=== PATIENT | female | born 1970 | race Hispanic/Latino ===

== ENCOUNTER 2016-09-26 18:38 | Emergency (ER) | payer MEDICAID ==
[2016-09-26 19:09] VITALS: BP 156/91
[2016-09-26 19:22] LABS: Basophils % (Auto) 1.1 % (0.0-1.8); Eosinophils % (Auto) 1.2 % (0.0-4.3); Hematocrit 38.8 % (30.3-42.9); Hemoglobin 13.4 gm/dl (10.1-14.3); Mean Corpuscular HGB Conc 35 % (30-34); Mean Corpuscular Hemoglobin 29 pg (28-32); Mean Corpuscular Volume 83 fl (79-97); Platelet Count 197 K/mm3 (140-440); Red Blood Count 4.67 M/mm3 (3.65-5.03); White Blood Count 9.7 K/mm3 (4.5-11.0)
[2016-09-26 20:09] LABS: Albumin 3.6 g/dL (3.9-5); Albumin/Globulin Ratio 0.8 %; Blood Urea Nitrogen 13 mg/dL (7-17); Calcium 8.9 mg/dL (8.4-10.2); Carbon Dioxide 21 mmol/L (22-30); Chloride 97.2 mmol/L (98-107); Glucose 163 mg/dL (65-100); Lipase 24 units/L (13-60); Sodium 134 mmol/L (137-145)
[2016-09-26 21:47] LABS: Anion Gap 21 mmol/L; Potassium 4.9 mmol/L (3.6-5.0)
[2016-09-26 21:48] LABS: Alanine Aminotransferase 17 units/L (7-56); Alkaline Phosphatase 109 units/L (35-129)
--- NOTE | 2016-09-27 09:44 | XRay Report ---
ROUTINE CHEST, TWO VIEWS: HISTORY: Right sided chest pain. The trachea, heart, mediastinal contour, lung resendiz and bony thorax are unremarkable. No change since 12/12/15. IMPRESSION: Unremarkable chest x-ray.
--- NOTE | 2016-09-28 00:26 | ED Elopement Review ---
ED Pt Elopement review - Results review Lab results: Laboratory Tests 09/26/16 09/26/16 19:11 19:11 WBC 9.7 RBC 4.67 Hgb 13.4 Hct 38.8 MCV 83 MCH 29 MCHC 35 H RDW 15.0 Plt Count 197 Lymph % (Auto) 23.3 Wirt % (Auto) 7.4 H Eos % (Auto) 1.2 Baso % (Auto) 1.1 Lymph # 2.3 Wirt # 0.7 Eos # 0.1 Baso # 0.1 Seg Neutrophils % 67.0 Seg Neutrophils # 6.5 Sodium 134 L Potassium 4.9 Chloride 97.2 L Carbon Dioxide 21 L Anion Gap 21 BUN 13 Creatinine 0.5 L Estimated GFR > 60 BUN/Creatinine Ratio 26.00 Glucose 163 H Calcium 8.9 Total Bilirubin 0.50 AST 34 ALT 17 Alkaline Phosphatase 109 Troponin T < 0.010 Total Protein 8.0 Albumin 3.6 L Albumin/Globulin Ratio 0.8 Lipase 24 - Call Back decision Pt Call Back Decision: No action required
== END 2016-09-27 00:54 | disposition left against medical advice (07) ==
LOC: ED 18:38
DX: R07.9 Chest pain, unspecified (principal); Z53.21 Procedure and treatment not carried out due to patient leaving prior to being seen by health care provider
CPT/HCPCS: 36415; 71020; 80048; 80053; 83690; 84484; 85025; 93005; 93010

== ENCOUNTER 2016-09-27 12:55 | Emergency (ER) | payer MEDICAID ==
[2016-09-27 13:50] LABS: Hematocrit 37.1 % (30.3-42.9); Hemoglobin 12.5 gm/dl (10.1-14.3); Mean Corpuscular HGB Conc 34 % (30-34); Mean Corpuscular Hemoglobin 29 pg (28-32); Mean Corpuscular Volume 85 fl (79-97); Platelet Count 198 K/mm3 (140-440); Red Blood Count 4.37 M/mm3 (3.65-5.03); Red Cell Distribution Width 14.9 % (13.2-15.2); White Blood Count 10.5 K/mm3 (4.5-11.0)
[2016-09-27 13:51] LABS: Creatine Kinase MB < 1.0 ng/mL (0.0-4.0)
[2016-09-27 13:52] LABS: Anion Gap 19 mmol/L; BUN/Creatinine Ratio 18.75; Blood Urea Nitrogen 15 mg/dL (7-17); Calcium 8.7 mg/dL (8.4-10.2); Carbon Dioxide 23 mmol/L (22-30); Chloride 94.5 mmol/L (98-107); Creatine Kinase 31 units/L (30-135); Glucose 228 mg/dL (65-100); Potassium 4.2 mmol/L (3.6-5.0); Sodium 132 mmol/L (137-145)
[2016-09-27 14:41] LABS: Bilirubin,Urine NEG (Negative); Blood,Urine SM (Negative); Ketones,Urine NEG (Negative); Leukocyte Esterase,Urine SM (Negative); Mucus,Urine FEW /HPF; Nitrite,Urine NEG (Negative)
[2016-09-27 20:15] VITALS: BP 133/71
--- NOTE | 2016-09-27 20:36 | Emergency Department Report ---
ED General Adult HPI - General Chief complaint: Chest Pain Stated complaint: CHEST PAIN Time Seen by Provider: 09/27/16 20:22 Source: patient Mode of arrival: Ambulatory Limitations: No Limitations - History of Present Illness Initial comments: 45-year-old female presents to the emergency department complaining of right sided back and abdominal pain. Patient states that she knows she has a bad gallbladder. She has been postponing surgery due to. The procedure. For the past 2 weeks she has been having intermittent abdominal pain with diarrhea. This pain is described as crampy. 2 days ago she began having right lower back pain that radiates to her right lower quadrant. This pain is described as sharp. The pain has been constant but waxes and wanes in intensity. Patient denies fever, nausea, or vomiting. There are no other complaints. -: Gradual, week(s) (2) Location: back, abdomen Radiation: non-radiation Severity scale (0 -10): 8 Quality: sharp Consistency: constant Improves with: none Worsens with: none Treatments Prior to Arrival: none - Related Data Home Medications Medication Instructions Recorded Confirmed Last Taken Insulin Aspart [NovoLOG 100 25 units SQ TID 06/02/13 12/12/15 05/10/15 UNITS/ML VIAL] Simvastatin [Zocor TAB] 40 mg PO QHS 06/02/13 12/12/15 05/09/15 Insulin Glargine,Hum.rec.anlog 50 units SUB-Q HS 08/16/14 12/12/15 05/09/15 [Lantus] Warfarin [Coumadin] 6 mg PO DAILY 08/16/14 12/12/15 05/10/15 HYDROcodone/APAP 10-325 [[place] 1 each PO Q8HR PRN 05/10/15 12/12/15 05/10/15 10-325 mg TAB] Previous Rx's Medication Instructions Recorded Last Taken Type Diltiazem Cd [Cardizem CD] 240 mg PO QDAY #30 capsule 06/05/13 05/10/15 Rx Amiodarone [Cordarone 200 MG TAB] 200 mg PO BID #60 tablet 12/14/15 Unknown Rx Nitrofurantoin [place]/M-Cryst 100 mg PO Q12HR #10 capsule 12/14/15 Unknown Rx [Macrobid CAP] Cyclobenzaprine [Flexeril] 10 mg PO TID PRN #20 tablet 09/27/16 Unknown Rx Allergies Allergy/AdvReac Type Severity Reaction Status Date / Time cephalexin monohydrate Allergy Nausea Verified 01/20/14 01:39 [From Keflex] ciprofloxacin Allergy Diarrhea Verified 01/20/14 01:39 lisinopril Allergy Swelling Verified 01/20/14 01:39 Penicillins Allergy Swelling Verified 01/20/14 01:39 metformin AdvReac Diarrhea Verified 01/20/14 01:39 ED Review of Systems ROS: Stated complaint: CHEST PAIN Other details as noted in HPI Comment: All other systems reviewed and negative Gastrointestinal: abdominal pain, diarrhea Musculoskeletal: back pain ED Past Medical Hx - Past Medical History Previous Medical History?: Yes Hx Hypertension: Yes Hx Diabetes: Yes Hx Psychiatric Treatment: Yes (anxiety) Hx Asthma: Yes Hx COPD: No Additional medical history: sleep apnea, high cholesterol,. A. fib with RVR in the past. was told had [place] 10/2014, clean cath per pt. gallstones. neuropathy. prolapsed bladder - Surgical History Past Surgical History?: Yes Additional Surgical History: tonsilectomy - Family History Family history: no significant - Social History Smoking Status: Never Smoker Substance Use Type: None - Medications Home Medications: Home Medications Medication Instructions Recorded Confirmed Last Taken Type Insulin Aspart [NovoLOG 100 25 units SQ TID 06/02/13 12/12/15 05/10/15 History UNITS/ML VIAL] Simvastatin [Zocor TAB] 40 mg PO QHS 06/02/13 12/12/15 05/09/15 History Diltiazem Cd [Cardizem CD] 240 mg PO QDAY #30 capsule 06/05/13 12/12/15 Rx Insulin Glargine,Hum.rec.anlog 50 units SUB-Q HS 08/16/14 12/12/15 05/09/15 History [Lantus] Warfarin [Coumadin] 6 mg PO DAILY 08/16/14 12/12/15 05/10/15 History HYDROcodone/APAP 10-325 [[place] 1 each PO Q8HR PRN 05/10/15 12/12/15 05/10/15 History 10-325 mg TAB] Amiodarone [Cordarone 200 MG TAB] 200 mg PO BID #60 tablet 12/14/15 Unknown Rx Nitrofurantoin [place]/M-Cryst 100 mg PO Q12HR #10 capsule 12/14/15 Unknown Rx [Macrobid CAP] Cyclobenzaprine [Flexeril] 10 mg PO TID PRN #20 tablet 09/27/16 Unknown Rx ED Physical Exam - General Limitations: No Limitations General appearance: alert, in no apparent distress, obese - Head Head exam: Present: atraumatic, normocephalic - Eye Eye exam: Present: normal appearance, PERRL, EOMI - ENT ENT exam: Present: normal exam, normal orophraynx, mucous membranes moist - Neck Neck exam: Present: normal inspection, full ROM. Absent: tenderness - Respiratory Respiratory exam: Present: normal lung sounds bilaterally. Absent: respiratory distress - Cardiovascular Cardiovascular Exam: Present: regular rate, normal rhythm, normal heart sounds - GI/Abdominal GI/Abdominal exam: Present: soft, tenderness (mild right upper quadrant tenderness to palpation), normal bowel sounds. Absent: distended, guarding, rebound - Extremities Exam Extremities exam: Present: normal inspection, full ROM. Absent: tenderness - Back Exam Back exam: Present: normal inspection, full ROM, tenderness, paraspinal tenderness (right lumbar). Absent: CVA tenderness (R), CVA tenderness (L), vertebral tenderness - Neurological Exam Neurological exam: Present: alert, oriented X3. Absent: motor sensory deficit - Skin Skin exam: Present: warm, dry, intact ED Course Vital Signs 09/27/16 09/27/16 13:10 20:14 Temperature 97.8 F 98.7 F Pulse Rate 84 78 Respiratory 20 20 Rate Blood Pressure 127/77 Blood Pressure 133/71 [Left] O2 Sat by Pulse 98 97 Oximetry ED Medical Decision Making - Lab Data Result diagrams: 09/27/16 13:20 09/27/16 13:20 - EKG Data -: EKG Interpreted by Id EKG shows normal: sinus rhythm, intervals, QRS complexes, ST-T waves Rate: normal - EKG Data When compared to previous EKG there are: no significant change Interpretation: unchanged when compared t (09/26/2016), other (left anterior fascicular block) - Radiology Data Radiology results: report reviewed, image reviewed CT of the abdomen and pelvis reveals cholelithiasis without evidence of cholecystitis. There appears to be a multi lobulated uterus consistent with fibroids. There are no other acute findings. - Medical Decision Making Lab and imaging results reviewed and discussed with the patient and family. Patient will be discharged home at this time to follow up with surgery. - Differential Diagnosis muscle spasm, cholelithiasis, cholecystitis, retroperitoneal hemorrhage Critical care attestation.: If time is entered above; I have spent that time in minutes in the direct care of this critically ill patient, excluding procedure time. ED Disposition Clinical Impression: Muscle spasm of back Cholelithiasis Qualifiers: Cholelithiasis location: gallbladder Cholecystitis presence: without cholecystitis Biliary obstruction: without biliary obstruction Qualified Code(s) : K80.20 - Calculus of gallbladder without cholecystitis without obstruction Disposition: DISCHARGED TO HOME OR SELFCARE Is pt being admited?: No Condition: Stable Instructions: Biliary Colic (ED), Muscle Spasm (ED) Prescriptions: Cyclobenzaprine [Flexeril] 10 mg PO TID PRN #20 tablet PRN Reason: Muscle Spasm Referrals: PRIMARY CARE, [Primary Care Provider] - 3-5 Days Time of Disposition: 22:28
[2016-09-27] MEDS ORDERED: NACL ONE (20:52)
[2016-09-27 21:02] LABS: Alanine Aminotransferase 14 units/L (7-56); Albumin 3.8 g/dL (3.9-5); Alkaline Phosphatase 103 units/L (35-129); Total Protein 7.5 g/dL (6.3-8.2)
[2016-09-27 21:03] LABS: Bilirubin,Direct < 0.2 mg/dL (0-0.2); Bilirubin,Indirect 0.3 mg/dL
--- NOTE | 2016-09-27 22:08 | Cat Scan Report ---
FINAL REPORT EXAM: CT ABDOMEN PELVIS W CON HISTORY: R flank pain, on Eliquis, h/o gallstones TECHNIQUE: Standard enhanced CT of the abdomen and pelvis. Delayed imaging through kidneys and bladder were obtained. Coronal and sagittal reconstruction was also performed. Contrast: 100 mL Omnipaque 300 given IV. PRIORS: None. FINDINGS: Within the abdomen, the liver, pancreas, adrenal glands, and kidneys are unremarkable. The spleen is enlarged measuring 17.6 cm in diameter with no underlying focal abnormality. Gallstones are noted filling most of the gallbladder. No evidence for retroperitoneal or pelvic lymphadenopathy is seen. The bowel loops have normal caliber. No soft tissue mass, fluid collection, inflammatory change, or free air is seen within the abdomen or pelvis. The appendix is not visualized with surgical clips along the cecal margin. Within the pelvis, the bladder is unremarkable. The uterus is the lobulated in contour suggesting underlying fibroid formation. No evidence for mass or lymphadenopathy is seen in the pelvis. Images through the upper abdomen include the lung bases which are expanded and clear. Bony structures show no focal abnormalities and are intact. IMPRESSION: 1. no acute intra-abdominal process noted. 2. The appendix is not visualized and has likely been surgically removed. 3. Enlarged spleen 4. Cholelithiasis 5. Enlarged lobulated uterus suggesting underlying fibroid formation. This can be further evaluated with ultrasound.
== END 2016-09-27 22:45 | disposition home or self-care (01) ==
LOC: ED 12:55
DX: K80.20 Calculus of gallbladder without cholecystitis without obstruction (principal); M62.830 Muscle spasm of back; I10 Essential (primary) hypertension; E11.9 Type 2 diabetes mellitus without complications; F41.9 Anxiety disorder, unspecified; J45.909 Unspecified asthma, uncomplicated; E78.00 Pure hypercholesterolemia, unspecified; I48.91 Unspecified atrial fibrillation; Z88.0 Allergy status to penicillin; Z88.1 Allergy status to other antibiotic agents; Z88.8 Allergy status to other drugs, medicaments and biological substances; Z79.4 Long term (current) use of insulin
CPT/HCPCS: 36415; 74177; 80048; 80074; 81001; 82550; 82553; 84484; 85027; 93005; 93010; 99284; Q9967

== ENCOUNTER 2017-01-12 14:03 | Emergency (ER) | payer MEDICAID ==
[2017-01-12 15:03] LABS: Basophils % (Auto) 0.9 % (0.0-1.8); Hematocrit 39.7 % (30.3-42.9); Hemoglobin 13.4 gm/dl (10.1-14.3); Mean Corpuscular HGB Conc 34 % (30-34); Mean Corpuscular Hemoglobin 28 pg (28-32); Mean Corpuscular Volume 84 fl (79-97); Platelet Count 204 K/mm3 (140-440); Red Blood Count 4.72 M/mm3 (3.65-5.03); Red Cell Distribution Width 15.8 % (13.2-15.2); White Blood Count 10.7 K/mm3 (4.5-11.0)
[2017-01-12 15:21] LABS: Alanine Aminotransferase 14 units/L (7-56); Albumin 3.8 g/dL (3.9-5); Alkaline Phosphatase 115 units/L (35-129); Anion Gap 19 mmol/L; Blood Urea Nitrogen 10 mg/dL (7-17); Calcium 8.9 mg/dL (8.4-10.2); Carbon Dioxide 25 mmol/L (22-30); Chloride 95.9 mmol/L (98-107); Glucose 300 mg/dL (65-100); Lipase 21 units/L (13-60); Sodium 136 mmol/L (137-145); Total Protein 7.7 g/dL (6.3-8.2)
[2017-01-12 16:23] LABS: Bacteria,Urine 1+ /HPF (Negative); Bilirubin,Urine NEG (Negative); Blood,Urine MOD (Negative); Ketones,Urine TR mg/dL (Negative); Leukocyte Esterase,Urine MOD (Negative); Mucus,Urine 2+ /HPF; Nitrite,Urine NEG (Negative)
--- NOTE | 2017-01-12 21:19 | Emergency Department Report ---
HPI - General Chief Complaint: Abdominal Pain Time Seen by Provider: 01/12/17 21:13 - HPI HPI: Patient right upper quadrant pain for the past 2 days, cramping accompanied by constipation. Patient stated a few months ago she had shingles and the pain feels similar. Patient also has a history of gallbladder disease, low functioning gallbladder, but due to her multiple comorbidities including morbid obesity, A. fib, hyperlipidemia and she has not found a surgeon willing to do her surgeries. ED Past Medical Hx - Past Medical History Hx Hypertension: Yes Hx Congestive Heart Failure: No Hx Diabetes: Yes Hx Psychiatric Treatment: Yes (anxiety) Hx Asthma: Yes Hx COPD: No Additional medical history: sleep apnea, high cholesterol,. A. fib with RVR in the past. was told had [place] 10/2014, clean cath per pt. gallstones. neuropathy. prolapsed bladder. morbid obesity - Surgical History Past Surgical History?: Yes Additional Surgical History: tonsillectomy - Family History Family history: hypertension - Social History Smoking Status: Never Smoker Substance Use Type: None - Medications Home Medications: Home Medications Medication Instructions Recorded Confirmed Last Taken Type Insulin Aspart [NovoLOG 100 25 units SQ TID 06/02/13 11/12/16 2 Weeks Ago History UNITS/ML VIAL] Simvastatin [Zocor TAB] 40 mg PO QHS 06/02/13 11/12/16 2 Weeks Ago History Diltiazem Cd [Cardizem CD] 240 mg PO QDAY #30 capsule 06/05/13 11/12/16 2 Weeks Ago Rx Insulin Glargine,Hum.rec.anlog 50 units SUB-Q HS 08/16/14 11/12/16 2 Weeks Ago History [Lantus] HYDROcodone/APAP 10-325 [[place] 1 each PO Q8HR PRN 05/10/15 11/12/16 2 Weeks Ago History 10-325 mg TAB] Apixaban [Eliquis] 5 mg PO BID 11/12/16 11/12/16 11/11/16 History Oxycodone HCl/Acetaminophen 1 each PO Q6HR PRN 11/12/16 11/12/16 Unknown History [Percocet 10/325 mg] Ciprofloxacin HCl [Ciprofloxacin 500 mg PO Q12H #10 tab 11/13/16 Unknown Rx TAB] Digoxin 250 mcg PO Q24HR #30 tablet 11/13/16 Unknown Rx Gabapentin [Neurontin] 100 mg PO Q8HR #30 capsule 01/12/17 Unknown Rx Magnesium Citrate [Citrate of 300 ml PO NOW PRN #1 bottle 01/12/17 Unknown Rx Magnesia] Nitrofurantoin [place]/M-Cryst 100 mg PO Q12HR #14 capsule 01/12/17 Unknown Rx [Macrobid CAP] ED Review of Systems ROS: Stated complaint: RT SIDE PAIN Other details as noted in HPI Comment: All other systems reviewed and negative Gastrointestinal: abdominal pain, nausea, constipation Genitourinary: urgency, dysuria, frequency Physical Exam - Physical Exam Vital Signs: Vital Signs 01/12/17 14:09 Temperature 98.5 F Pulse Rate 89 Respiratory 16 Rate Blood Pressure 138/80 O2 Sat by Pulse 99 Oximetry Physical Exam: Gen. alert and oriented 3, morbidly obese female, in no distress Head atraumatic normocephalic Eyes PERR LA EOMI Chest regular rate and rhythm normal S1-S2 lungs clear bilaterally Abdomen soft nondistended, nontender Back no point tenderness paravertebral tenderness Neuro no focal deficit. Psych normal mood. ED Course Vital Signs 01/12/17 14:09 Temperature 98.5 F Pulse Rate 89 Respiratory 16 Rate Blood Pressure 138/80 O2 Sat by Pulse 99 Oximetry ED Medical Decision Making - Lab Data Result diagrams: 01/12/17 14:36 01/12/17 14:36 Critical care attestation.: If time is entered above; I have spent that time in minutes in the direct care of this critically ill patient, excluding procedure time. ED Disposition Clinical Impression: UTI (urinary tract infection), Constipation, Neuropathic pain Disposition: DC-01 TO HOME OR SELFCARE Is pt being admited?: No Does the pt Need Aspirin: No Condition: Stable Instructions: Abdominal Pain (ED) Prescriptions: Gabapentin [Neurontin] 100 mg PO Q8HR #30 capsule Magnesium Citrate [Citrate of Magnesia] 300 ml PO NOW PRN #1 bottle PRN Reason: Constipation Nitrofurantoin [place]/M-Cryst [Macrobid CAP] 100 mg PO Q12HR #14 capsule Referrals: PRIMARY CARE, [Primary Care Provider] - 3-5 Days
[2017-01-12] MEDS ORDERED: TORADOL IM ONE (21:21)
[2017-01-12 22:22] VITALS: BP 132/78
== END 2017-01-12 22:23 | disposition home or self-care (01) ==
LOC: ED 14:03
DX: N39.0 Urinary tract infection, site not specified (principal); K59.00 Constipation, unspecified; I10 Essential (primary) hypertension; J45.909 Unspecified asthma, uncomplicated; E78.00 Pure hypercholesterolemia, unspecified; E11.40 Type 2 diabetes mellitus with diabetic neuropathy, unspecified; Z79.4 Long term (current) use of insulin
CPT/HCPCS: 36415; 80053; 81001; 82962; 83690; 84703; 85025; 96372; 99283; J1885

== ENCOUNTER 2017-01-12 23:25 | Emergency (ER) | payer MEDICAID ==
[2017-01-12] MEDS ORDERED: DECADRON IM ONE (23:36)
[2017-01-12] MEDS ORDERED: BENADRYL IM ONE (23:36)
[2017-01-12 23:46] VITALS: BP 137/89
--- NOTE | 2017-01-13 00:14 | Emergency Department Report ---
HPI - General Chief Complaint: Allergic Reaction Time Seen by Provider: 01/12/17 23:36 ED Past Medical Hx - Past Medical History Previous Medical History?: Yes Hx Hypertension: Yes Hx Congestive Heart Failure: No Hx Diabetes: Yes Hx Psychiatric Treatment: Yes (anxiety) Hx Asthma: Yes Hx COPD: No Additional medical history: sleep apnea, high cholesterol,. A. fib with RVR in the past. was told had [place] 10/2014, clean cath per pt. gallstones. neuropathy. prolapsed bladder. morbid obesity - Surgical History Past Surgical History?: Yes Additional Surgical History: tonsillectomy - Social History Smoking Status: Unknown if ever smoked Substance Use Type: Prescribed - Medications Home Medications: Home Medications Medication Instructions Recorded Confirmed Last Taken Type Insulin Aspart [NovoLOG 100 25 units SQ TID 06/02/13 11/12/16 2 Weeks Ago History UNITS/ML VIAL] Simvastatin [Zocor TAB] 40 mg PO QHS 06/02/13 11/12/16 2 Weeks Ago History Diltiazem Cd [Cardizem CD] 240 mg PO QDAY #30 capsule 06/05/13 11/12/16 2 Weeks Ago Rx Insulin Glargine,Hum.rec.anlog 50 units SUB-Q HS 08/16/14 11/12/16 2 Weeks Ago History [Lantus] HYDROcodone/APAP 10-325 [[place] 1 each PO Q8HR PRN 05/10/15 11/12/16 2 Weeks Ago History 10-325 mg TAB] Apixaban [Eliquis] 5 mg PO BID 11/12/16 11/12/16 11/11/16 History Oxycodone HCl/Acetaminophen 1 each PO Q6HR PRN 11/12/16 11/12/16 Unknown History [Percocet 10/325 mg] Ciprofloxacin HCl [Ciprofloxacin 500 mg PO Q12H #10 tab 11/13/16 Unknown Rx TAB] Digoxin 250 mcg PO Q24HR #30 tablet 11/13/16 Unknown Rx Gabapentin [Neurontin] 100 mg PO Q8HR #30 capsule 01/12/17 Unknown Rx Magnesium Citrate [Citrate of 300 ml PO NOW PRN #1 bottle 01/12/17 Unknown Rx Magnesia] Nitrofurantoin [place]/M-Cryst 100 mg PO Q12HR #14 capsule 01/12/17 Unknown Rx [Macrobid CAP] Hydroxyzine HCl 25 mg PO BID PRN #14 tablet 01/13/17 Unknown Rx ED Review of Systems ROS: Stated complaint: POSS REACTION TO MEDS Other details as noted in HPI Physical Exam - Physical Exam Vital Signs: Vital Signs 01/12/17 23:43 Temperature 98.1 F Pulse Rate 76 Respiratory 18 Rate Blood Pressure 137/89 O2 Sat by Pulse 98 Oximetry Physical Exam: Physical exam ED Course Vital Signs 01/12/17 23:43 Temperature 98.1 F Pulse Rate 76 Respiratory 18 Rate Blood Pressure 137/89 O2 Sat by Pulse 98 Oximetry Critical care attestation.: If time is entered above; I have spent that time in minutes in the direct care of this critically ill patient, excluding procedure time. ED Disposition Clinical Impression: Acute allergic reaction Disposition: DC-01 TO HOME OR SELFCARE Is pt being admited?: No Does the pt Need Aspirin: No Condition: Stable Prescriptions: Hydroxyzine HCl 25 mg PO BID PRN #14 tablet PRN Reason: Itching Referrals: PRIMARY CARE [Primary Care Provider] - 3-5 Days
== END 2017-01-13 00:11 | disposition home or self-care (01) ==
LOC: ED 23:25
DX: T78.40XA Allergy, unspecified, initial encounter (principal); I10 Essential (primary) hypertension; E11.9 Type 2 diabetes mellitus without complications; J45.909 Unspecified asthma, uncomplicated; Z79.4 Long term (current) use of insulin; X58.XXXA Exposure to other specified factors, initial encounter
CPT/HCPCS: 96372; 99282; J1100; J1200

== ENCOUNTER 2018-02-28 21:17 | Emergency (ER) | payer MEDICAID ==
[2018-02-28 21:30] VITALS: BP 170/79
--- NOTE | 2018-02-28 22:42 | Cat Scan Report ---
FINAL REPORT PROCEDURE: CT HEAD/BRAIN WO CON TECHNIQUE: Computerized tomography of the head was performed without contrast material. HISTORY: blunt trauma to hit/co headache,disoriented COMPARISON: No prior studies are available for comparison. FINDINGS: Skull and scalp: Normal. Paranasal sinuses: Normal. Ventricles and subarachnoid spaces: Normal. Cerebrum: No evidence of hemorrhage, acute infarction or mass . Cerebellum and brainstem: No evidence of hemorrhage, acute infarction or mass. Vasculature: Normal. Comments: There is metallic piercing at the right eyebrow. IMPRESSION: Normal Examination
== END 2018-02-28 23:45 | disposition left against medical advice (07) ==
LOC: ED 21:17
DX: R51 Headache (principal); Z53.21 Procedure and treatment not carried out due to patient leaving prior to being seen by health care provider
CPT/HCPCS: 70450

== ENCOUNTER 2019-01-12 12:08 | Emergency (ER) | payer MEDICAID ==
--- NOTE | 2019-01-12 12:25 | Event Note ---
ED Screening Note Date of service: 01/12/19 Time: 12:21 ED Screening Note: This is a 48 y.o. F. that presents to the ER with abdominal pain radiating to right flank. PMH A.fib, DM2, HTN, HLD, sleep apnea, asthma, sciatica, and neuropathy. Reports diarrhea She went to PCP and started on bactrim and reports symptoms are worsening. This initial assessment/diagnostic orders/clinical plan/treatment(s) is/are subject to change based on patients health status, clinical progression and re-assessment by fellow clinical providers in the ED. Further treatment and workup at subsequent clinical providers discretion. Patient/guardian urged not to elope from the ED as their condition may be serious if not clinically assessed and managed. Initial orders include: Labs and CT of abdomen and pelvis
[2019-01-12 13:24] LABS: Basophils # (Auto) 0.1 K/mm3 (0.0-0.1); Basophils % (Auto) 0.4 % (0.0-1.8); Eosinophils # (Auto) 0.1 K/mm3 (0.0-0.4); Eosinophils % (Auto) 0.4 % (0.0-4.3); Hematocrit 34.4 % (30.3-42.9); Hemoglobin 11.1 gm/dl (10.1-14.3); Lymphocytes # (Auto) 1.7 K/mm3 (1.2-5.4); Lymphocytes % (Auto) 12.5 % (13.4-35.0); Mean Corpuscular HGB Conc 32 % (30-34); Mean Corpuscular Volume 72 fl (79-97); Monocytes # (Auto) 0.9 K/mm3 (0.0-0.8); Monocytes % (Auto) 6.5 % (0.0-7.3); Platelet Count 277 K/mm3 (140-440); Red Blood Count 4.78 M/mm3 (3.65-5.03); Red Cell Distribution Width 17.6 % (13.2-15.2)
[2019-01-12 13:47] LABS: Alanine Aminotransferase 14 units/L (7-56); Albumin 3.7 g/dL (3.9-5); BUN/Creatinine Ratio 20; Blood Urea Nitrogen 12 mg/dL (7-17); Calcium 9.2 mg/dL (8.4-10.2); Hemolysis Index 2
[2019-01-12] MEDS ORDERED: NACL 0.9% 1000 ML 1,000 ML IV ONE (13:52)
[2019-01-12] MEDS ORDERED: ZOFRAN IV ONE (13:52)
[2019-01-12] MEDS ORDERED: MORPHINE IV ONE (13:52)
[2019-01-12] MEDS ORDERED: TORADOL IV ONE (14:15)
[2019-01-12] MEDS ORDERED: HumuLIN R IV ONE (15:03)
--- NOTE | 2019-01-12 15:15 | Cat Scan Report ---
CT ABDOMEN AND PELVIS WITH CONTRAST HISTORY: Upper and lower abdominal pain for 2 days COMPARISON: 09/27/2016 TECHNIQUE: Axial CT images were obtained through the abdomen and pelvis following 100 cc of IV contra st. Sagittal and coronal reformatted images. All CT scans at this location are performed using CT dos e reduction for ALARA by means of automated exposure control. FINDINGS: CT ABDOMEN: Lung Bases: Clear. Liver: Mild diffuse fatty changes noted in the liver. No mass or enlargement. Biliary: Numerous small calcified gallstones in the gallbladder measuring up to 5 mm. No abnormal dil atation or inflammation. Spleen: No significant abnormality. Unenlarged. Pancreas: No significant abnormality. Adrenals: No significant abnormality. Kidneys: No significant abnormality. Lymphatics: No lymphadenopathy. Vasculature: No significant abnormality. Bowel/Peritoneum: No significant abnormality. No free air. No free fluid. Appendix is not confidently identified. CT PELVIS: : The uterus is anteverted. The vaginal canal appears expanded with soft tissue density measuring u p to 7.6 cm in diameter. The etiology of this is unclear. The adnexal regions are unremarkable. Osseous Structures: No significant abnormality. Additional Findings: None IMPRESSION: No acute inflammatory process is identified. Mild fatty infiltration throughout the liver. Cholelithiasis but no evidence for acute cholecystitis. Abnormal appearance of the vaginal canal please see above and correlate with the clinical presentatio n of the patient. Signer Name: Micah Rebolledo Jr, MD Signed: 01/12/2019 3:11 PM Workstation Name: [id number]
[2019-01-12 15:57] LABS: Bacteria,Urine 2+ /HPF (Negative); Bilirubin,Urine NEG (Negative); Blood,Urine MOD (Negative); Color,Urine Amber (Yellow); Mucus,Urine 3+ /HPF; Urobilinogen,Urine < 2.0 mg/dL (<2.0)
[2019-01-12 16:03] LABS: WBC,Urine > 182.0 /HPF (0.0-6.0)
[2019-01-12] MEDS ORDERED: BACTRIM DS PO ONE (16:47)
[2019-01-12 17:32] VITALS: BP 101/57
--- NOTE | 2019-01-12 17:45 | Emergency Department Report ---
ED Abdominal Pain HPI - General Chief Complaint: Abdominal Pain Stated Complaint: ABD PAIN Time Seen by Provider: 01/12/19 12:20 Source: patient Mode of arrival: Ambulatory Limitations: No Limitations - History of Present Illness Initial Comments: This is a 48-year-old female nontoxic, well nourished in appearance, no acute signs of distress presents to the ED with c/o of nausea and dysuria, abdominal pain 1 day. Patient denies any vomiting. Patient denies any back pain. Patient describes abdominal pain as cramping and aching with level of 3/10 diffuse. Patient denies chest pain, short of breath, fever, chills, headache, stiff neck, numbness or tingling. Patient denies any diarrhea or constipation. Patient denies any recent travels. Patient stated has history of diabetes and has taken her medications today. MD Complaint: abdominal pain -: days(s) (1) Location: diffuse Radiation: none Severity: mild Severity scale (0 -10): 3 Quality: cramping, aching Consistency: constant Improves With: nothing Worsens With: nothing Associated Symptoms: nausea, dysuria. denies: vomiting, diarrhea, fever, chills, constipation, hematemesis, hematochezia, melena, hematuria, anorexia, syncope - Related Data Home Medications Medication Instructions Recorded Confirmed Last Taken Insulin Aspart [NovoLOG 100 25 units SQ TID 06/02/13 11/12/16 2 Weeks Ago UNITS/ML VIAL] ~10/29/16 Simvastatin [Zocor TAB] 40 mg PO QHS 06/02/13 11/12/16 2 Weeks Ago ~10/29/16 Insulin Glargine,Hum.rec.anlog 50 units SUB-Q HS 08/16/14 11/12/16 2 Weeks Ago [Lantus] ~10/29/16 HYDROcodone/APAP 10-325 [[place] 1 each PO Q8HR PRN 05/10/15 11/12/16 2 Weeks Ago 10-325 mg TAB] ~10/29/16 Apixaban [Eliquis] 5 mg PO BID 11/12/16 11/12/16 11/11/16 Oxycodone HCl/Acetaminophen 1 each PO Q6HR PRN 11/12/16 11/12/16 Unknown [Percocet 10/325 mg] Previous Rx's Medication Instructions Recorded Last Taken Type dilTIAZem CD [Cardizem CD] 240 mg PO QDAY #30 capsule 06/05/13 2 Weeks Ago Rx ~10/29/16 Ciprofloxacin HCl [Ciprofloxacin 500 mg PO Q12H #10 tab 11/13/16 Unknown Rx TAB] Digoxin 250 mcg PO Q24HR #30 tablet 11/13/16 Unknown Rx Gabapentin [Neurontin] 100 mg PO Q8HR #30 capsule 01/12/17 Unknown Rx Magnesium Citrate [Citrate of 300 ml PO NOW PRN #1 bottle 01/12/17 Unknown Rx Magnesia] Nitrofurantoin Holmes/M-Cryst 100 mg PO Q12HR #14 capsule 01/12/17 Unknown Rx [Macrobid CAP] hydrOXYzine HCl [Hydroxyzine HCl] 25 mg PO BID PRN #14 tablet 01/13/17 Unknown Rx Acetaminophen/Codeine [Tylenol 1 tab PO Q6H PRN #12 tab 01/12/19 Unknown Rx /Codeine # 3 tab] Ciprofloxacin HCl [Ciprofloxacin 500 mg PO Q12HR #14 tab 01/12/19 Unknown Rx TAB] Ondansetron [Zofran Odt] 4 mg PO Q8HR PRN #20 tab.rapdis 01/12/19 Unknown Rx Allergies Allergy/AdvReac Type Severity Reaction Status Date / Time cephalexin monohydrate Allergy Nausea Verified 11/11/16 13:44 [From Keflex] ciprofloxacin Allergy Diarrhea Verified 11/11/16 13:44 lisinopril Allergy Swelling Verified 11/11/16 13:44 Penicillins Allergy Swelling Verified 11/11/16 13:44 metformin AdvReac Diarrhea Verified 11/11/16 13:44 ED Review of Systems ROS: Stated complaint: ABD PAIN Other details as noted in HPI Constitutional: denies: chills, fever Eyes: denies: eye pain, eye discharge, vision change ENT: denies: ear pain, throat pain Respiratory: denies: cough, shortness of breath, wheezing Cardiovascular: denies: chest pain, palpitations Endocrine: no symptoms reported Gastrointestinal: abdominal pain, nausea. denies: vomiting, diarrhea Genitourinary: dysuria. denies: urgency, discharge Musculoskeletal: denies: back pain, joint swelling, arthralgia Skin: denies: rash, lesions Neurological: denies: headache, weakness, paresthesias Psychiatric: denies: anxiety, depression Hematological/Lymphatic: denies: easy bleeding, easy bruising ED Past Medical Hx - Past Medical History Previous Medical History?: Yes Hx Hypertension: Yes Hx Congestive Heart Failure: No Hx Diabetes: Yes Hx Psychiatric Treatment: Yes (anxiety) Hx Asthma: Yes Hx COPD: No Additional medical history: sleep apnea, high cholesterol,prolasped bladder,sciatia. A. fib with RVR in the past. was told had [place] 10/2014, clean cath per pt. gallstones. neuropathy. prolapsed bladder. morbid obesity - Surgical History Past Surgical History?: Yes Additional Surgical History: tonsillectomy - Social History Smoking Status: Never Smoker Substance Use Type: None - Medications Home Medications: Home Medications Medication Instructions Recorded Confirmed Last Taken Type Insulin Aspart [NovoLOG 100 25 units SQ TID 06/02/13 11/12/16 2 Weeks Ago History UNITS/ML VIAL] ~10/29/16 Simvastatin [Zocor TAB] 40 mg PO QHS 06/02/13 11/12/16 2 Weeks Ago History ~10/29/16 dilTIAZem CD [Cardizem CD] 240 mg PO QDAY #30 capsule 06/05/13 11/12/16 2 Weeks Ago Rx ~10/29/16 Insulin Glargine,Hum.rec.anlog 50 units SUB-Q HS 08/16/14 11/12/16 2 Weeks Ago History [Lantus] ~10/29/16 HYDROcodone/APAP 10-325 [[place] 1 each PO Q8HR PRN 05/10/15 11/12/16 2 Weeks Ago History 10-325 mg TAB] ~10/29/16 Apixaban [Eliquis] 5 mg PO BID 11/12/16 11/12/16 11/11/16 History Oxycodone HCl/Acetaminophen 1 each PO Q6HR PRN 11/12/16 11/12/16 Unknown History [Percocet 10/325 mg] Ciprofloxacin HCl [Ciprofloxacin 500 mg PO Q12H #10 tab 11/13/16 Unknown Rx TAB] Digoxin 250 mcg PO Q24HR #30 tablet 11/13/16 Unknown Rx Gabapentin [Neurontin] 100 mg PO Q8HR #30 capsule 01/12/17 Unknown Rx Magnesium Citrate [Citrate of 300 ml PO NOW PRN #1 bottle 01/12/17 Unknown Rx Magnesia] Nitrofurantoin Holmes/M-Cryst 100 mg PO Q12HR #14 capsule 01/12/17 Unknown Rx [Macrobid CAP] hydrOXYzine HCl [Hydroxyzine HCl] 25 mg PO BID PRN #14 tablet 01/13/17 Unknown Rx Acetaminophen/Codeine [Tylenol 1 tab PO Q6H PRN #12 tab 01/12/19 Unknown Rx /Codeine # 3 tab] Ciprofloxacin HCl [Ciprofloxacin 500 mg PO Q12HR #14 tab 01/12/19 Unknown Rx TAB] Ondansetron [Zofran Odt] 4 mg PO Q8HR PRN #20 tab.rapdis 01/12/19 Unknown Rx ED Physical Exam - General Limitations: No Limitations General appearance: alert, in no apparent distress - Head Head exam: Present: atraumatic, normocephalic - Neck Neck exam: Present: normal inspection, full ROM. Absent: tenderness, meningismus, lymphadenopathy - Respiratory Respiratory exam: Present: normal lung sounds bilaterally. Absent: respiratory distress, wheezes, rales, rhonchi, chest wall tenderness, accessory muscle use, decreased breath sounds, prolonged expiratory - Cardiovascular Cardiovascular Exam: Present: regular rate, normal rhythm, normal heart sounds - GI/Abdominal GI/Abdominal exam: Present: soft, tenderness (diffuse), normal bowel sounds. Absent: distended, guarding, rebound, rigid, diminished bowel sounds - Extremities Exam Extremities exam: Present: normal inspection, full ROM, normal capillary refill. Absent: tenderness - Back Exam Back exam: Present: normal inspection, full ROM. Absent: tenderness, CVA tender ness (R), CVA tenderness (L), muscle spasm, paraspinal tenderness, vertebral tenderness, rash noted - Neurological Exam Neurological exam: Present: alert, oriented X3, normal gait - Psychiatric Psychiatric exam: Present: normal affect, normal mood - Skin Skin exam: Present: warm, dry, intact, normal color. Absent: rash ED Course Vital Signs 01/12/19 01/12/19 01/12/19 12:21 14:11 14:22 Temperature 98 F Pulse Rate 114 H Respiratory 20 19 18 Rate Blood Pressure 106/69 Blood Pressure [Right] O2 Sat by Pulse 97 Oximetry 01/12/19 16:55 Temperature 97.8 F Pulse Rate 87 Respiratory 19 Rate Blood Pressure Blood Pressure 101/57 [Right] O2 Sat by Pulse 99 Oximetry - Reevaluation(s) Reevaluation #1: 01/12/19 17:43 Patient is speaking in full sentences with no signs of distress noted. ED Medical Decision Making - Lab Data Result diagrams: 01/12/19 13:00 01/12/19 13:00 - Medical Decision Making This is a 48-year-old female that presents with abdominal pain, nausea, and UTI. Patient is stable and was examined by me. There is no abdominal tenderness. Patient does not have any CVA tenderness. No signs or symptoms of pyelonephritis. Negative signs of symptoms of appendicitis. Labs obtained. UA obtained. CT of abdomen obtained and dictated by the radiologist. Patient is notified of the report with no questions noted by the patient. Vital signs are stable prior to discharge. Patient received medical treatment and Bactrim in the ED which patient stated symptoms has resovled and subsided. Was instructed note to operate any machinery due to possible drowsiness and stated someone will drive the patient home. A by mouth challenge has been obtained and patient tolerated well with no nausea vomiting. Patient was also instructed to Follow- up with a primary care doctor in 3-5 days or if symptoms worsen and continue return to emergency room as soon as possible. At time of discharge, the patient does not seem toxic or ill in appearance. No acute signs of distress noted. Patient agrees to discharge treatment plan of care. No further questions noted by the patient. Critical care attestation.: If time is entered above; I have spent that time in minutes in the direct care of this critically ill patient, excluding procedure time. ED Disposition Clinical Impression: Nausea Abdominal pain Qualifiers: Abdominal location: generalized Qualified Code(s): R10.84 - Generalized abdominal pain UTI (urinary tract infection) Qualifiers: Urinary tract infection type: acute cystitis Hematuria presence: without hematuria Qualified Code(s): N30.00 - Acute cystitis without hematuria Disposition: -01 TO HOME OR SELFCARE Is pt being admited?: No Does the pt Need Aspirin: No Condition: Stable Instructions: Abdominal Pain (ED), Urinary Tract Infection in Women (ED) Additional Instructions: Follow-up with a primary care doctor in 3-5 days or if symptoms worsen and continue return to emergency room as soon as possible. Prescriptions: Ciprofloxacin HCl [Ciprofloxacin TAB] 500 mg PO Q12HR #14 tab Acetaminophen/Codeine [Tylenol /Codeine # 3 tab] 1 tab PO Q6H PRN #12 tab PRN Reason: Pain , Severe (7-10) Ondansetron [Zofran Odt] 4 mg PO Q8HR PRN #20 tab.rapdis PRN Reason: Nausea Referrals: ADRIANNE OREILLY MD [Primary Care Provider] - 3-5 Days PRIMARY CARE, [Referring] - 3-5 Days ROGER NAIDU MD [Staff Physician] - 3-5 Days [facility] [Outside] - 3-5 Days [facility] [Outside] - 3-5 Days Forms: Work/School Release Form(ED)
== END 2019-01-12 18:02 | disposition home or self-care (01) ==
LOC: ED 12:08
DX: N39.0 Urinary tract infection, site not specified (principal); I10 Essential (primary) hypertension; F31.9 Bipolar disorder, unspecified; J45.909 Unspecified asthma, uncomplicated; E78.00 Pure hypercholesterolemia, unspecified; E11.65 Type 2 diabetes mellitus with hyperglycemia; E66.01 Morbid (severe) obesity due to excess calories; Z68.43 Body mass index [BMI] 50.0-59.9, adult; Z90.89 Acquired absence of other organs; Z88.6 Allergy status to analgesic agent; Z88.1 Allergy status to other antibiotic agents; Z88.0 Allergy status to penicillin; Z79.899 Other long term (current) drug therapy
CPT/HCPCS: 36415; 74177; 80053; 81001; 82805; 82962; 83690; 84703; 85025; 96374; 96375; 99284; J1885; J2405; J7030; Q9967; J2270

== ENCOUNTER 2019-08-16 21:05 | Emergency (ER) | payer MEDICAID ==
[2019-08-16 21:28] VITALS: BP 159/90
--- NOTE | 2019-08-16 21:33 | Emergency Department Report ---
ED ENT HPI - General Chief complaint: Dental/Oral Stated complaint: ABCSESS IN MOUTH/FACIAL PAIN Time Seen by Provider: 08/16/19 21:26 Source: patient Mode of arrival: Ambulatory Limitations: No Limitations - History of Present Illness Initial comments: This is a 48-year-old female nontoxic well in appearance with no signs of distress presents to the ED with complaint of toothache. Patient denies any facial swelling. Denies following up with a dentist. Denies any fever, chills, headache, nausea, vomiting, chest pain or SOB. Denies any other complaints. Denies any allergies. MD complaint: tooth pain -: week(s) Location: tooth # Severity: mild Severity scale (0 -10): 8 Quality: aching Consistency: constant Improves with: none Worsens with: none Context- Dental: history of dental caries, poor dental care Associated Symptoms: gum swelling, toothache. denies: fever, cough, pain with swallowing, sore throat, tinnitus, hearing loss, discharge from ear, rhinorrhea - Related Data Home Medications Medication Instructions Recorded Confirmed Last Taken Simvastatin [Zocor TAB] 40 mg PO QHS 06/02/13 06/24/19 06/22/19 Apixaban [Eliquis] 5 mg PO BID 11/12/16 06/24/19 06/23/19 Metoprolol [Lopressor TAB] 50 mg PO BID 06/17/19 06/24/19 06/23/19 Previous Rx's Medication Instructions Recorded Last Taken Type dilTIAZem CD [Cardizem CD] 240 mg PO QDAY #30 capsule 06/05/13 06/23/19 Rx Digoxin 250 mcg PO Q24HR #30 tablet 11/13/16 06/23/19 Rx Benzonatate [Tessalon Perles] 100 mg PO Q8HR #30 capsule 06/21/19 06/23/19 Rx Empagliflozin [Jardiance] 10 mg PO DAILY #30 tablet 06/21/19 Unknown Rx Insulin Glargine [Lantus VIAL] 70 units SUB-Q BID #5 vial 06/21/19 06/22/19 Rx Lispro Insulin [HumaLOG] 45 unit SUB-Q TIDAC #5 vial 06/21/19 06/22/19 Rx Pantoprazole [Protonix TAB] 40 mg PO QDAY #30 tablet 06/21/19 06/23/19 Rx Sennosides/Docusate [Senokot S] 2 tab PO Q12H PRN #30 tablet 06/21/19 Unknown Rx polyethylene glycoL 3350 [Miralax 17 gm PO QDAY PRN #30 powd.pack 06/21/19 Unkn own Rx 3350] Albuterol INH(or & Nicu Only) 2 puff IH QID PRN #8.5 gram 06/26/19 Unknown Rx [ProAir HFA Inhaler] Azithromycin [Zithromax TAB] 500 mg PO QDAY #4 tablet 06/26/19 Unknown Rx Prednisone [predniSONE 10 mg 10 mg PO .TAPER #1 tab.ds.pk 06/26/19 Unknown Rx (6-Day Pack, 21 Tabs)] Clindamycin [Clindamycin CAP] 300 mg PO Q8H #21 cap 08/16/19 Unknown Rx Naproxen 500 mg PO Q12H PRN #12 tablet 08/16/19 Unknown Rx Allergies Allergy/AdvReac Type Severity Reaction Status Date / Time cephalexin monohydrate Allergy Nausea Verified 06/24/19 10:08 [From Keflex] ciprofloxacin Allergy Diarrhea Verified 06/24/19 10:08 lisinopril Allergy Unknown Verified 06/24/19 10:08 Penicillins Allergy Swelling Verified 06/24/19 10:08 metformin AdvReac Diarrhea Verified 06/24/19 10:08 ED Dental HPI - General Chief complaint: Dental/Oral Stated complaint: ABCSESS IN MOUTH/FACIAL PAIN Time Seen by Provider: 08/16/19 21:26 Source: patient Mode of arrival: Ambulatory Limitations: No Limitations - Related Data Home Medications Medication Instructions Recorded Confirmed Last Taken Simvastatin [Zocor TAB] 40 mg PO QHS 06/02/13 06/24/19 06/22/19 Apixaban [Eliquis] 5 mg PO BID 11/12/16 06/24/19 06/23/19 Metoprolol [Lopressor TAB] 50 mg PO BID 06/17/19 06/24/19 06/23/19 Previous Rx's Medication Instructions Recorded Last Taken Type dilTIAZem CD [Cardizem CD] 240 mg PO QDAY #30 capsule 06/05/13 06/23/19 Rx Digoxin 250 mcg PO Q24HR #30 tablet 11/13/16 06/23/19 Rx Benzonatate [Tessalon Perles] 100 mg PO Q8HR #30 capsule 06/21/19 06/23/19 Rx Empagliflozin [Jardiance] 10 mg PO DAILY #30 tablet 06/21/19 Unknown Rx Insulin Glargine [Lantus VIAL] 70 units SUB-Q BID #5 vial 06/21/19 06/22/19 Rx Lispro Insulin [HumaLOG] 45 unit SUB-Q TIDAC #5 vial 06/21/19 06/22/19 Rx Pantoprazole [Protonix TAB] 40 mg PO QDAY #30 tablet 06/21/19 06/23/19 Rx Sennosides/Docusate [Senokot S] 2 tab PO Q12H PRN #30 tablet 06/21/19 Unknown Rx polyethylene glycoL 3350 [Miralax 17 gm PO QDAY PRN #30 powd.pack 06/21/19 Unknown Rx 3350] Albuterol INH(or & Nicu Only) 2 puff IH QID PRN #8.5 gram 06/26/19 Unknown Rx [ProAir HFA Inhaler] Azithromycin [Zithromax TAB] 500 mg PO QDAY #4 tablet 06/26/19 Unknown Rx Prednisone [predniSONE 10 mg 10 mg PO .TAPER #1 tab.ds.pk 06/26/19 Unknown Rx (6-Day Pack, 21 Tabs)] Clindamycin [Clindamycin CAP] 300 mg PO Q8H #21 cap 08/16/19 Unknown Rx Naproxen 500 mg PO Q12H PRN #12 tablet 08/16/19 Unknown Rx Allergies Allergy/AdvReac Type Severity Reaction Status Date / Time cephalexin monohydrate Allergy Nausea Verified 06/24/19 10:08 [From Keflex] ciprofloxacin Allergy Diarrhea Verified 06/24/19 10:08 lisinopril Allergy Unknown Verified 06/24/19 10:08 Penicillins Allergy Swelling Verified 06/24/19 10:08 metformin AdvReac Diarrhea Verified 06/24/19 10:08 ED Review of Systems ROS: Stated complaint: ABCSESS IN MOUTH/FACIAL PAIN Other details as noted in HPI Constitutional: denies: chills, fever Eyes: denies: eye pain, eye discharge, vision change ENT: dental pain. denies: ear pain, throat pain Respiratory: denies: cough, shortness of breath, wheezing Cardiovascular: denies: chest pain, palpitations Endocrine: no symptoms reported Gastrointestinal: denies: abdominal pain, nausea, diarrhea Genitourinary: denies: urgency, dysuria, discharge Musculoskeletal: denies: back pain, joint swelling, arthralgia Skin: denies: rash, lesions Neurological: denies: headache, weakness, paresthesias Psychiatric: denies: anxiety, depression Hematological/Lymphatic: denies: easy bleeding, easy bruising ED Past Medical Hx - Past Medical History Hx Hypertension: Yes Hx Heart Attack/AMI: Yes Hx Congestive Heart Failure: No Hx Diabetes: Yes Hx Psychiatric Treatment: Yes (anxiety) Hx Asthma: Yes Hx COPD: No Additional medical history: sleep apnea, high cholesterol,prolasped bladder,sciatia. A. fib with RVR in the past. was told had [place] 10/2014, clean cath per pt. gallstones. neuropathy. prolapsed bladder. morbid obesity - Surgical History Additional Surgical History: tonsillectomy - Social History Smoking Status: Never Smoker Substance Use Type: None - Medications Home Medications: Home Medications Medication Instructions Recorded Confirmed Last Taken Type Simvastatin [Zocor TAB] 40 mg PO QHS 06/02/13 06/24/19 06/22/19 History dilTIAZem CD [Cardizem CD] 240 mg PO QDAY #30 capsule 06/05/13 06/24/19 06/23/19 Rx Apixaban [Eliquis] 5 mg PO BID 11/12/16 06/24/19 06/23/19 History Digoxin 250 mcg PO Q24HR #30 tablet 11/13/16 06/24/19 06/23/19 Rx Metoprolol [Lopressor TAB] 50 mg PO BID 06/17/19 06/24/19 06/23/19 History Benzonatate [Tessalon Perles] 100 mg PO Q8HR #30 capsule 06/21/19 06/24/19 06/23/19 Rx Empagliflozin [Jardiance] 10 mg PO DAILY #30 tablet 06/21/19 06/24/19 Unknown Rx Insulin Glargine [Lantus VIAL] 70 units SUB-Q BID #5 vial 06/21/19 06/24/19 Rx Lispro Insulin [HumaLOG] 45 unit SUB-Q TIDAC #5 vial 06/21/19 06/24/19 06/22/19 Rx Pantoprazole [Protonix TAB] 40 mg PO QDAY #30 tablet 06/21/19 06/24/19 06/23/19 Rx Sennosides/Docusate [Senokot S] 2 tab PO Q12H PRN #30 tablet 06/21/19 06/24/19 Unknown Rx polyethylene glycoL 3350 [Miralax 17 gm PO QDAY PRN #30 powd.pack 06/21/19 06/24/19 Unknown Rx 3350] Albuterol INH(or & Nicu Only) 2 puff IH QID PRN #8.5 gram 06/26/19 Unknown Rx [ProAir HFA Inhaler] Azithromycin [Zithromax TAB] 500 mg PO QDAY #4 tablet 06/26/19 Unknown Rx Prednisone [predniSONE 10 mg 10 mg PO .TAPER #1 tab.ds.pk 06/26/19 Unknown Rx (6-Day Pack, 21 Tabs)] Clindamycin [Clindamycin CAP] 300 mg PO Q8H #21 cap 08/16/19 Unknown Rx Naproxen 500 mg PO Q12H PRN #12 tablet 08/16/19 Unknown Rx ED Physical Exam - General Limitations: No Limitations General appearance: alert, in no apparent distress - Head Head exam: Present: atraumatic, normocephalic - Expanded ENT Exam Expanded Ear exam: Present: normal external inspection Mouth exam: Present: normal external inspection, tongue normal. Absent: drooling, trismus, muffled voice Teeth exam: Present: dental caries, fractured tooth #, dental tenderness #, gingival enlargement, other (uvula midline. no abscess or swelling) Throat exam: Positive: normal inspection. Negative: tonsillar erythema, tonsillomegaly, tonsillar exudate, R peritonsillar mass, L peritonsillar mass - Neck Neck exam: Present: normal inspection, full ROM. Absent: tenderness, meningismus, lymphadenopathy ED Course - Reevaluation(s) Reevaluation #1: 08/16/19 21:30 Patient is speaking in full sentences with no signs of distress noted. ED Medical Decision Making - Medical Decision Making Patient was instructed to Follow-up with a dentiste doctor in 3-5 days or if symptoms worsen and continue return to emergency room as soon as possible. At time of discharge, the patient does not seem toxic or ill in appearance. No acu te signs of distress noted. Patient agrees to discharge treatment plan of care. No further questions noted by the patient. Critical care attestation.: If time is entered above; I have spent that time in minutes in the direct care of this critically ill patient, excluding procedure time. ED Disposition Clinical Impression: Dental caries, Gingivitis Disposition: TO HOME OR SELFCARE Is pt being admited?: No Does the pt Need Aspirin: No Condition: Stable Instructions: Dental Caries (ED), Gingivitis (ED) Additional Instructions: Follow-up with a dentist doctor in 3-5 days or if symptoms worsen and continue return to emergency room as soon as possible. Prescriptions: Clindamycin [Clindamycin CAP] 300 mg PO Q8H #21 cap Naproxen 500 mg PO Q12H PRN #12 tablet PRN Reason: Pain , Severe (7-10) Referrals: PRIMARY MD CHIOMA [Primary Care Provider] - 3-5 Days ADRIANNE OREILLY MD [Staff Physician] - 3-5 Days Forms: Work/School Release Form(ED)
== END 2019-08-16 21:40 | disposition home or self-care (01) ==
LOC: ED 21:05
DX: K02.9 Dental caries, unspecified (principal); K05.00 Acute gingivitis, plaque induced; I10 Essential (primary) hypertension; I25.2 Old myocardial infarction; E11.9 Type 2 diabetes mellitus without complications; F41.9 Anxiety disorder, unspecified; J45.909 Unspecified asthma, uncomplicated; E78.00 Pure hypercholesterolemia, unspecified; E11.40 Type 2 diabetes mellitus with diabetic neuropathy, unspecified; E66.01 Morbid (severe) obesity due to excess calories; Z68.43 Body mass index [BMI] 50.0-59.9, adult; Z90.49 Acquired absence of other specified parts of digestive tract; Z79.899 Other long term (current) drug therapy; Z88.0 Allergy status to penicillin; Z88.6 Allergy status to analgesic agent; Z88.8 Allergy status to other drugs, medicaments and biological substances
CPT/HCPCS: 99282

== ENCOUNTER 2020-05-09 18:27 | Inpatient (IN) | payer MEDICAID ==
--- NOTE | 2020-05-09 19:30 | Event Note ---
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 Further treatment and workup at subsequent clinical providers discretion. Patient/guardian urged not to elope from the ED as their condition may be serious if not clinically assessed and managed. Initial orders include: labs, EKG, CXR
[2020-05-09 21:06] LABS: Basophils # (Auto) 0.1 K/mm3 (0.0-0.1); Basophils % (Auto) 0.8 % (0.0-1.8); Eosinophils # (Auto) 0.1 K/mm3 (0.0-0.4); Hematocrit 24.2 % (30.3-42.9); Hemoglobin 7.3 gm/dl (10.1-14.3); Lymphocytes # (Auto) 0.6 K/mm3 (1.2-5.4); Lymphocytes % (Auto) 8.8 % (13.4-35.0); Mean Corpuscular HGB Conc 30 % (30-34); Monocytes # (Auto) 0.6 K/mm3 (0.0-0.8); Platelet Count 176 K/mm3 (140-440); Red Blood Count 3.69 M/mm3 (3.65-5.03); Red Cell Distribution Width 19.1 % (13.2-15.2)
[2020-05-09 21:14] LABS: Mean Corpuscular Volume 66 fl (79-97)
[2020-05-09 21:22] LABS: INR 1.33 (0.87-1.13)
[2020-05-09 21:24] LABS: Alanine Aminotransferase 8 units/L (7-56); Albumin 3.6 g/dL (3.9-5); Blood Urea Nitrogen 23 mg/dL (7-17); Hemolysis Index 4
[2020-05-09 21:30] LABS: BUN/Creatinine Ratio 33
[2020-05-09] MEDS ORDERED: FUROSEMIDE 40 MG/4 ML INJ IV ONE (21:44)
--- NOTE | 2020-05-09 21:51 | Emergency Department Report ---
ED Shortness of Breath HPI - General Chief Complaint: Dyspnea/Respdistress Stated Complaint: ADAIR Time Seen by Provider: 05/09/20 19:29 Source: patient Mode of arrival: Stretcher Limitations: No Limitations - History of Present Illness Initial Comments: Patient is 49 years old morbidly obese female with history of hypertension, diabetes, obstructive sleep apnea atrial fibrillation with RVR. Patient presented to the ER complaining of shortness of breath, orthopnea and generalized body swelling for the last few days. Patient stated that she was never been diagnosed with congestive heart failure before. Patient denied any chest pain, fever or chills. Patient stated that she was diagnosed with COVID- 19 in November. Complaint: shortness of breath -: days(s) Severity: moderate - Related Data Home Medications Medication Instructions Recorded Confirmed Last Taken Simvastatin [Zocor TAB] 40 mg PO QHS 06/02/13 06/24/19 06/22/19 Apixaban [Eliquis] 5 mg PO BID 11/12/16 06/24/19 06/23/19 Metoprolol [Lopressor TAB] 50 mg PO BID 06/17/19 06/24/19 06/23/19 Previous Rx's Medication Instructions Recorded Last Taken Type dilTIAZem CD [Cardizem CD] 240 mg PO QDAY #30 capsule 06/05/13 06/23/19 Rx Digoxin 250 mcg PO Q24HR #30 tablet 11/13/16 06/23/19 Rx Benzonatate [Tessalon Perles] 100 mg PO Q8HR #30 capsule 06/21/19 06/23/19 Rx Empagliflozin [Jardiance] 10 mg PO DAILY #30 tablet 06/21/19 Unknown Rx Insulin Glargine [Lantus VIAL] 70 units SUB-Q BID #5 vial 06/21/19 06/22/19 Rx Lispro Insulin [HumaLOG] 45 unit SUB-Q TIDAC #5 vial 06/21/19 06/22/19 Rx Pantoprazole [Protonix TAB] 40 mg PO QDAY #30 tablet 06/21/19 06/23/19 Rx Sennosides/Docusate [Senokot S] 2 tab PO Q12H PRN #30 tablet 06/21/19 Unknown Rx polyethylene glycoL 3350 [Miralax 17 gm PO QDAY PRN #30 powd.pack 06/21/19 Unknown Rx 3350] Albuterol Mdi (or & Nicu Only) 2 puff IH QID PRN #8.5 gram 06/26/19 Unknown Rx [ProAir HFA Inhaler] Azithromycin [Zithromax TAB] 500 mg PO QDAY #4 tablet 06/26/19 Unknown Rx Prednisone [predniSONE 10 mg 10 mg PO .TAPER #1 tab.ds.pk 06/26/19 Unknown Rx (6-Day Pack, 21 Tabs)] Clindamycin [Clindamycin CAP] 300 mg PO Q8H #21 cap 08/16/19 Unknown Rx Naproxen 500 mg PO Q12H PRN #12 tablet 08/16/19 Unknown Rx Allergies Allergy/AdvReac Type Severity Reaction Status Date / Time cephalexin monohydrate Allergy Nausea Verified 05/09/20 18:39 [From Keflex] ciprofloxacin Allergy Diarrhea Verified 05/09/20 18:39 lisinopril Allergy Unknown Verified 05/09/20 18:39 Penicillins Allergy Swelling Verified 05/09/20 18:39 metformin AdvReac Diarrhea Verified 05/09/20 18:39 ED Review of Systems ROS: Stated complaint: ADAIR Other details as noted in HPI Comment: All other systems reviewed and negative Constitutional: denies: chills, fever Respiratory: cough, orthopnea, shortness of breath, SOB with exertion, SOB at rest. denies: wheezing Cardiovascular: palpitations. denies: chest pain Gastrointestinal: denies: abdominal pain, nausea, vomiting, diarrhea, constipation, hematemesis, melena, hematochezia Musculoskeletal: denies: back pain Neurological: denies: headache, weakness, numbness, paresthesias, confusion ED Past Medical Hx - Past Medical History Previous Medical History?: Yes Hx Hypertension: Yes Hx Heart Attack/AMI: Yes Hx Congestive Heart Failure: No Hx Diabetes: Yes Hx Psychiatric Treatment: Yes (anxiety) Hx Asthma: Yes Hx COPD: No Additional medical history: sleep apnea, high cholesterol,prolasped bladder,sc iatia. A. fib with RVR in the past. was told had [place] 10/2014, clean cath per pt. gallstones. neuropathy. prolapsed bladder. morbid obesity - Surgical History Past Surgical History?: Yes Additional Surgical History: tonsillectomy - Social History Smoking Status: Never Smoker Substance Use Type: None - Medications Home Medications: Home Medications Medication Instructions Recorded Confirmed Last Taken Type Simvastatin [Zocor TAB] 40 mg PO QHS 06/02/13 06/24/19 06/22/19 History dilTIAZem CD [Cardizem CD] 240 mg PO QDAY #30 capsule 06/05/13 06/24/19 06/23/19 Rx Apixaban [Eliquis] 5 mg PO BID 11/12/16 06/24/19 06/23/19 History Digoxin 250 mcg PO Q24HR #30 tablet 11/13/16 06/24/19 06/23/19 Rx Metoprolol [Lopressor TAB] 50 mg PO BID 06/17/19 06/24/19 06/23/19 History Benzonatate [Tessalon Perles] 100 mg PO Q8HR #30 capsule 06/21/19 06/24/19 06/23/19 Rx Empagliflozin [Jardiance] 10 mg PO DAILY #30 tablet 06/21/19 06/24/19 Unknown Rx Insulin Glargine [Lantus VIAL] 70 units SUB-Q BID #5 vial 06/21/19 06/24/19 06/22/19 Rx Lispro Insulin [HumaLOG] 45 unit SUB-Q TIDAC #5 vial 06/21/19 06/24/19 06/22/19 Rx Pantoprazole [Protonix TAB] 40 mg PO QDAY #30 tablet 06/21/19 06/24/19 06/23/19 Rx Sennosides/Docusate [Senokot S] 2 tab PO Q12H PRN #30 tablet 06/21/19 06/24/19 Unknown Rx polyethylene glycoL 3350 [Miralax 17 gm PO QDAY PRN #30 powd.pack 06/21/19 06/24/19 Unknown Rx 3350] Albuterol Mdi (or & Nicu Only) 2 puff IH QID PRN #8.5 gram 06/26/19 Unknown Rx [ProAir HFA Inhaler] Azithromycin [Zithromax TAB] 500 mg PO QDAY #4 tablet 06/26/19 Unknown Rx Prednisone [predniSONE 10 mg 10 mg PO .TAPER #1 tab.ds.pk 06/26/19 Unknown Rx (6-Day Pack, 21 Tabs)] Clindamycin [Clindamycin CAP] 300 mg PO Q8H #21 cap 08/16/19 Unknown Rx Naproxen 500 mg PO Q12H PRN #12 tablet 08/16/19 Unknown Rx ED Physical Exam - General Limitations: No Limitations General appearance: alert, in no apparent distress - Head Head exam: Present: atraumatic, normocephalic, normal inspection - Eye Eye exam: Present: normal appearance, PERRL - ENT ENT exam: Present: normal exam, normal orophraynx, mucous membranes moist - Neck Neck exam: Present: normal inspection, full ROM. Absent: tenderness, meningismus, lymphadenopathy, thyromegaly - Respiratory Respiratory exam: Present: respiratory distress, rales, decreased breath sounds. Absent: wheezes, rhonchi, prolonged expiratory - Cardiovascular Cardiovascular Exam: Present: irregular rhythm - GI/Abdominal GI/Abdominal exam: Present: soft, distended, normal bowel sounds. Absent: tenderness, guarding, rebound, rigid, organomegaly, mass, bruit, pulsatile mass, hernia - Extremities Exam Extremities exam: Present: normal capillary refill, pedal edema. Absent: calf tenderness - Back Exam Back exam: Present: normal inspection, full ROM. Absent: tenderness, CVA tenderness (L), muscle spasm, paraspinal tenderness - Neurological Exam Neurological exam: Present: alert, oriented X3, CN II-XII intact. Absent: motor sensory deficit - Psychiatric Psychiatric exam: Present: normal mood - Skin Skin exam: Present: warm, intact, normal color ED Course Vital Signs 05/09/20 19:20 Temperature 97.7 F Pulse Rate 89 Respiratory 20 Rate Blood Pressure 137/63 O2 Sat by Pulse 100 Oximetry ED Medical Decision Making - Lab Data Result diagrams: 05/09/20 20:12 05/09/20 20:12 - EKG Data -: EKG Interpreted by Mi Rate: normal - EKG Data Interpretation: no acute changes - Radiology Data Radiology results: report reviewed - Medical Decision Making Patient is 49 years old morbidly obese female with history of hypertension, diabetes, obstructive sleep apnea atrial fibrillation with RVR. Patient presented to the ER complaining of shortness of breath, orthopnea and genera lized body swelling for the last few days. Patient stated that she was never been diagnosed with congestive heart failure before. Patient denied any chest pain, fever or chills. Patient stated that she was diagnosed with COVID-19 in November. Labs reviewed and showed elevated BNP. Patient received Lasix 60 mg IV. Chest x-ray is unremarkable. Patient most likely has a new onset CHF. I discussed the patient with , he agreed to admit the patient to medical service for further management. Critical Care Time: Yes Critical care time in (mins) excluding proc time.: 30 Critical care attestation.: If time is entered above; I have spent that time in minutes in the direct care of this critically ill patient, excluding procedure time. ED Disposition Clinical Impression: New onset of congestive heart failure Disposition: DC-09 OP ADMIT IP TO THIS HOSP Is pt being admited?: Yes Condition: Stable
--- NOTE | 2020-05-09 22:58 | XRay Report ---
CHEST 1 VIEW INDICATION / CLINICAL INFORMATION: SOB. COMPARISON: 06/23/2019 FINDINGS: SUPPORT DEVICES: None. HEART / MEDIASTINUM: Stable. LUNGS / PLEURA: No significant pulmonary or pleural abnormality. No pneumothorax. ADDITIONAL FINDINGS: No significant additional findings. IMPRESSION: 1. No acute findings or significant interval change when compared to 06/23/2019. Signer Name: Aditya Grimes MD Signed: 05/09/2020 10:54 PM Workstation Name: [id number]
[2020-05-10] MEDS ORDERED: NITROGLYCERIN 0.4 MG TAB SUBL SL PRN (00:04)
[2020-05-10] MEDS ORDERED: ONDANSETRON 4 MG/2 ML INJ IV ONE (00:12)
[2020-05-10] MEDS ORDERED: traMADol 50 MG TAB PO PRN (00:12)
--- NOTE | 2020-05-10 00:43 | History and Physical Report ---
History of Present Illness Date of examination: 05/10/20 Date of admission: 05/09/20 Chief complaint: CHF Shortness of breath Generalized edema History of present illness: This is 49 years old morbidly obese female seen at bedside in ED. She presents to ER with worsening shortness of breath and generalized edema. She admits history of hypertension, diabetes, obstructive sleep apnea, atrial fibrillation with RVR. On assessment, she reports hx of GI bleed while on eliqus for A-fib. She also reports hx of covid 19 infection in November. Patient denies diagnosed with congestive heart failure before. She also denies chest pain, fever or chills. I reviewed her mar, lab, and v/s. ED Work up shows: H/H 7.3 and BNP 1504, WBC 7.2, D-dimer 643, sodium 133, potassium 4.5, C02 22, Cr 0.7, and serum glucose 291 Chest x-ray -showed no acute finding Past History Past Medical History: atrial fib, anemia, diabetes, heart failure, hypertension, hyperlipidemia, other (gall stone) Past Surgical History: tonsillectomy. denies: valve replacement, total hip replacement Social history: no significant social history. denies: IV drug use Family history: CAD, diabetes, hypertension, other (hyperlidemia) Medications and Allergies Allergies Allergy/AdvReac Type Severity Reaction Status Date / Time cephalexin monohydrate Allergy Nausea Verified 05/09/20 18:39 [From Keflex] ciprofloxacin Allergy Diarrhea Verified 05/09/20 18:39 lisinopril Allergy Unknown Verified 05/09/20 18:39 Penicillins Allergy Swelling Verified 05/09/20 18:39 metformin AdvReac Diarrhea Verified 05/09/20 18:39 Home Medications Medication Instructions Recorded Confirmed Last Taken Type Simvastatin [Zocor TAB] 40 mg PO QHS 06/02/13 06/24/19 06/22/19 History dilTIAZem CD [Cardizem CD] 240 mg PO QDAY #30 capsule 06/05/13 06/24/19 06/23/19 Rx Apixaban [Eliquis] 5 mg PO BID 11/12/16 06/24/19 06/23/19 History Digoxin 250 mcg PO Q24HR #30 tablet 11/13/16 06/24/19 06/23/19 Rx Metoprolol [Lopressor TAB] 50 mg PO BID 06/17/19 06/24/19 06/23/19 History Benzonatate [Tessalon Perles] 100 mg PO Q8HR #30 capsule 06/21/19 06/24/19 06/23/19 Rx Empagliflozin [Jardiance] 10 mg PO DAILY #30 tablet 06/21/19 06/24/19 Unknown Rx Insulin Glargine [Lantus VIAL] 70 units SUB-Q BID #5 vial 06/21/19 06/24/19 06/22/19 Rx Lispro Insulin [HumaLOG] 45 unit SUB-Q TIDAC #5 vial 06/21/19 06/24/19 06/22/19 Rx Pantoprazole [Protonix TAB] 40 mg PO QDAY #30 tablet 06/21/19 06/24/19 06/23/19 Rx Sennosides/Docusate [Senokot S] 2 tab PO Q12H PRN #30 tablet 06/21/19 06/24/19 Unknown Rx polyethylene glycoL 3350 [Miralax 17 gm PO QDAY PRN #30 powd.pack 06/21/19 06/24/19 Unknown Rx 3350] Albuterol Mdi (or & Nicu Only) 2 puff IH QID PRN #8.5 gram 06/26/19 Unknown Rx [ProAir HFA Inhaler] Azithromycin [Zithromax TAB] 500 mg PO QDAY #4 tablet 06/26/19 Unknown Rx Prednisone [predniSONE 10 mg 10 mg PO .TAPER #1 tab.ds.pk 06/26/19 Unknown Rx (6-Day Pack, 21 Tabs)] Clindamycin [Clindamycin CAP] 300 mg PO Q8H #21 cap 08/16/19 Unknown Rx Naproxen 500 mg PO Q12H PRN #12 tablet 08/16/19 Unknown Rx Active Meds: Active Medications Aspirin (Baby Aspirin) 81 mg PO QDAY KALI Carvedilol (Coreg) 6.25 mg PO BID KALI Ferrous Sulfate (Feosol) 325 mg PO QDAY KALI Furosemide (Lasix) 40 mg PO BID@0600,1800 KALI Multivitamins (Theragran Tab) 1 each PO QDAY KALI Nitroglycerin (Nitrostat) 0.4 mg SL .Q5MIN PRN PRN Reason: Chest Pain Tramadol HCl (Ultram) 25 mg PO Q4H PRN PRN Reason: Pain, Moderate (4-6) Review of Systems Constitutional: weakness Ears, nose, mouth and throat: no epistaxis Breasts: normal Cardiovascular: chest pain, edema, shortness of breath, dyspnea on exertion, high blood pressure, leg edema, other (Generalized edema) Respiratory: shortness of breath Gastrointestinal: abdominal pain Genitourinary Female: no difficulty voiding, no vaginal itching Rectal: no hemorrhoids Musculoskeletal: no neck stiffness, no hot joints, no myalgias Integumentary: no hirsutism, no foot/leg ulcers Neurological: no ataxia Psychiatric: no disorientation, no hallucinations Endocrine: high blood sugars, no excessive sweating Exam - Constitutional Vitals: Temp Pulse Resp BP Pulse Ox 97.7 F 89 20 137/63 100 05/09/20 19:20 05/09/20 19:20 05/09/20 19:20 05/09/20 19:20 05/09/20 19:20 General appearance: Present: mild distress, obese - EENT Eyes: Present: PERRL ENT: hearing intact, clear oral mucosa - Neck Neck: Present: supple, normal ROM - Respiratory Respiratory effort: normal Respiratory: bilateral: CTA - Cardiovascular Rhythm: irregularly irregular (hx of a-fib was on eliquis) Heart Sounds: Present: S1 & S2. Absent: rub, click - Extremities Extremities: pulses symmetrical, abnormal (generalized edema) Peripheral Pulses: within normal limits - Abdominal General gastrointestinal: Present: distended Female genitourinary: Present: normal - Integumentary Integumentary: Present: clear, warm, dry - Musculoskeletal Musculoskeletal: gait normal, strength equal bilaterally - Psychiatric Psychiatric: cooperative - Neurologic Neurologic: CNII-XII intact HEART Score - HEART Score Troponin: Troponin T < 0.010 ng/mL (0.00-0.029) 05/09/20 20:12 Results - Labs CBC & Chem 7: 05/09/20 20:12 05/09/20 20:12 Labs: Abnormal lab results 05/09/20 05/09/20 05/09/20 Range/Units 20:12 20:12 20:12 Hgb 7.3 L (10.1-14.3) gm/dl Hct 24.2 L (30.3-42.9) % MCV 66 L (79-97) fl MCH 20 L (28-32) pg RDW 19.1 H (13.2-15.2) % Lymph % (Auto) 8.8 L (13.4-35.0) % [place] % (Auto) 8.0 H (0.0-7.3) % Lymph # (Auto) 0.6 L (1.2-5.4) K/mm3 Seg Neutrophils % 81.4 H (40.0-70.0) % PT 16.5 H (12.2-14.9) Sec. 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 BNP 1504 Chest x-ray-o acute finding (2) Atrial fibrillation Status: Chronic Plan to address problem: Hx of a-fib on eliquis-she said she stopped taken due bleeding Continue rate control with lopressor/cardiozem [employer] Work[employer] consult (3) Hypertension Status: Chronic Qualifiers: Hypertension type: essential hypertension Qualified Code(s): I10 - Essential (primary) hypertension Plan to address problem: monitor blood pressure Resume home bp med adjust BP med if needed (4) IDDM (insulin dependent diabetes mellitus) Status: Chronic Plan to address problem: monitor blood sugar with SSI Check HGA1C Resume home antihyperglycermic (5) Morbid (severe) obesity with alveolar hypoventilation Status: Chronic Plan to address problem: Discussed lifestyle modification Healthy diet and weight management (6) Sleep apnea Status: Chronic Plan to address problem: Most likely due to obesity hypoventilation syndrome Pt said she uses CPAP at home Resume CPAP q HS for sleep (7) Shortness of breath Status: Acute Plan to address problem: most likely 2/2 to CHF continue diuretic Bronchodilators and oxygen supplement PRN (8) Anemia Status: Acute Plan to address problem: patient reports abdominal pain and hx of anemia due to GI bleed- patient was on eliquis due to A-fib ED H/H 7.3. 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
[2020-05-10] MEDS: METOPROLOL TARTRATE 50 MG TAB PO SCH ×3 (02:45→21:36)
[2020-05-10 03:33] LABS: Iron 19 ug/dL (37-170); Total Iron Binding Capacity 362 mcg/dL (250-450)
--- NOTE | 2020-05-10 05:45 | Cat Scan Report ---
CT ABDOMEN AND PELVIS WITH CONTRAST INDICATION / CLINICAL INFORMATION: Patient complains of "Generalized" abdominal pain. TECHNIQUE: Axial CT images were obtained through the abdomen and pelvis after 100 mL Omnipaque [address] scans at this location are performed using CT dose reduction for ALARA by means of automated exposure control. COMPARISON: CT abdomen pelvis 01/12/2019 FINDINGS: LOWER CHEST: Mild mitral annular calcification. Left atrial enlargement. Small right pleural effusion . LIVER: There is mild nodularity of the hepatic contour, suggesting cirrhosis. BILIARY SYSTEM: Cholelithiasis. PANCREAS: No significant abnormality. SPLEEN: Splenomegaly. ADRENALS: No significant abnormality. KIDNEYS and URETERS: No significant abnormality. STOMACH / BOWEL: No significant abnormality. PERITONEUM: Trace ascites. No free air. No fluid collection. LYMPH NODES: There has been interval development of extensive retroperitoneal and pelvic lymphadenopa thy, for example a retrocaval lymph node in the mid abdomen measuring up to 2.6 cm short axis (series 2, image 96), a right common iliac node measuring up to 3.3 cm short axis (series 2, image 142), and a left iliac node measuring up to 3.2 cm short axis (series 2, image 152). VASCULAR STRUCTURES: No significant abnormality. URINARY BLADDER: No significant abnormality. REPRODUCTIVE ORGANS: Diffuse enlargement of the cervix and vagina appears slightly more prominent com pared with prior examination. ADDITIONAL FINDINGS: Diffuse body wall edema. SKELETAL SYSTEM: No significant abnormality. IMPRESSION: 1. Interval development of extensive retroperitoneal and pelvic lymphadenopathy, raising concern for lymphoproliferative neoplasm versus metastases. 2. Enlargement of the cervix and vagina appear slightly more prominent compared with prior examinatio n, correlate with pelvic exam. This could represent a potential source of neoplasm. 3. Mild nodularity of the contour of the liver raising the possibility of developing cirrhosis. Splen omegaly. 4. Cholelithiasis without CT evidence for acute cholecystitis. 5. Left atrial enlargement. Small right pleural effusion. Signer Name: Rachell Villarreal MD Signed: 05/10/2020 3:59 AM Workstation Name: [id number]
[2020-05-10] MEDS: INSULIN LISPRO 100 UNIT/ML VIAL 3 mL SUB-Q SCH ×3 (08:32→17:50)
[2020-05-10] MEDS: dilTIAZem CD 240 MG CAP PO SCH (09:46)
[2020-05-10] MEDS: MULTIVITAMINS ,THERAPEUTIC TAB PO SCH (09:46)
[2020-05-10] MEDS: ASPIRIN 81 MG TAB CHEW PO SCH (09:47)
[2020-05-10] MEDS: FERROUS SULFATE 325 MG TAB PO SCH (09:47)
[2020-05-10] MEDS: FUROSEMIDE 40 MG TAB PO SCH ×2 (09:47→17:49)
[2020-05-10] MEDS: INSULIN GLARGINE 100 UNITS/ML SUB-Q SCH ×2 (09:48→21:36)
--- NOTE | 2020-05-10 09:59 | Progress Note ---
Assessment and Plan Assessment and plan: Anemia. Patient reports history of GI bleed while on Eliquis for A. fib. Check Hemoccult of stool. GI consultation pending. Follow-up CT of abdomen and pelvis. Anticoagulation on hold. Permanent atrial fibrillation. Continue diltiazem/metoprolol for rate control. Acute on chronic diastolic heart failure. Continue IV Lasix and GDMT for heart failure. Cardiology consulted. History of cardiac cath in 2014 showing normal coronary arteries. Type 2 diabetes mellitus. Continue SSRI and Accu-Cheks. Tight glycemic control. Essential primary hypertension. Continue home antihypertensive medications. Morbid obesity. Patient will be counseled on weight loss and importance of a balanced diet. Obstructive sleep apnea. O2 to maintain sats greater than 92%. Hyperlipidemia. Continue Pravachol. Asthma with no evidence of acute exacerbation. History Interval history: No new issues overnight. Hospitalist Physical - Constitutional Vitals: Temp Pulse Resp BP Pulse Ox 97.6 F 89 20 80/41 96 05/10/20 07:44 05/10/20 07:44 05/10/20 07:44 05/10/20 07:46 05/10/20 07:44 General appearance: Present: mild distress, obese - EENT Eyes: Present: PERRL, EOM intact ENT: hearing intact, clear oral mucosa, dentition normal - Neck Neck: Present: supple, normal ROM - Respiratory Respiratory effort: normal Respiratory: bilateral: CTA - Cardiovascular Rhythm: regular Heart Sounds: Present: S1 & S2. Absent: gallop, rub - Extremities Extremities: no ischemia, No edema, Full ROM - Abdominal General gastrointestinal: soft, non-tender, non-distended, normal bowel sounds - Integumentary Integumentary: Present: clear, warm, dry - Neurologic Neurologic: CNII-XII intact, moves all extremities HEART Score - HEART Score Troponin: Troponin T < 0.010 ng/mL (0.00-0.029) 05/09/20 20:12 Results - Labs CBC & Chem 7: 05/09/20 20:12 05/09/20 20:12 Labs: Laboratory Last Values WBC 7.2 K/mm3 (4.5-11.0) 05/09/20 20:12 RBC 3.69 M/mm3 (3.65-5.03) 05/09/20 20:12 Hgb 7.3 gm/dl (10.1-14.3) L 05/09/20 20:12 Hct 24.2 % (30.3-42.9) L 05/09/20 20:12 MCV 66 fl (79-97) L 05/09/20 20:12 MCH 20 pg (28-32) L 05/09/20 20:12 MCHC 30 % (30-34) 05/09/20 20:12 RDW 19.1 % (13.2-15.2) H 05/09/20 20:12 Plt Count 176 K/mm3 (140-440) 05/09/20 20:12 Lymph % (Auto) 8.8 % (13.4-35.0) L 05/09/20 20:12 [place] % (Auto) 8.0 % (0.0-7.3) H 05/09/20 20:12 Eos % (Auto) 1.0 % (0.0-4.3) 05/09/20 20:12 Baso % (Auto) 0.8 % (0.0-1.8) 05/09/20 20:12 Lymph # (Auto) 0.6 K/mm3 (1.2-5.4) L 05/09/20 20:12 [place] # (Auto) 0.6 K/mm3 (0.0-0.8) 05/09/20 20:12 Eos # (Auto) 0.1 K/mm3 (0.0-0.4) 05/09/20 20:12 Baso # (Auto) 0.1 K/mm3 (0.0-0.1) 05/09/20 20:12 Seg Neutrophils % 81.4 % (40.0-70.0) H 05/09/20 20:12 Seg Neutrophils # 5.8 K/mm3 (1.8-7.7) 05/09/20 20:12 PT 16.5 Sec. (12.2-14.9) H 05/09/20 20:12 INR 1.33 (0.87-1.13) H 05/09/20 20:12 APTT 31.0 Sec. (24.2-36.6) 05/09/20 20:12 D-Dimer 643.75 ng/mlDDU (0-234) H 05/09/20 20:12 Sodium 133 mmol/L (137-145) L 05/09/20 20:12 Potassium 4.5 mmol/L (3.6-5.0) 05/09/20 20:12 Chloride 99.4 mmol/L (98-107) 05/09/20 20:12 Carbon Dioxide 22 mmol/L (22-30) 05/09/20 20:12 Anion Gap 16 mmol/L 05/09/20 20:12 BUN 23 mg/dL (7-17) H 05/09/20 20:12 Creatinine 0.7 mg/dL (0.6-1.2) 05/09/20 20:12 Estimated GFR > 60 ml/min 05/09/20 20:12 BUN/Creatinine Ratio 33 % 05/09/20 20:12 Glucose 291 mg/dL (65-100) H 05/09/20 20:12 Hemoglobin A1c 8.6 % (4-6) H 05/09/20 20:12 Calcium 9.0 mg/dL (8.4-10.2) 05/09/20 20:12 Magnesium 1.60 mg/dL (1.7-2.3) L 05/10/20 Unknown Iron 19 ug/dL (37-170) L 05/10/20 Unknown TIBC 362 mcg/dL (250-450) 05/10/20 Unknown Total Bilirubin 0.70 mg/dL (0.1-1.2) 05/09/20 20:12 AST 19 units/L (5-40) 05/09/20 20:12 ALT 8 units/L (7-56) 05/09/20 20:12 Alkaline Phosphatase 133 units/L (35-129) H 05/09/20 20:12 Troponin T < 0.010 ng/mL (0.00-0.029) 05/09/20 20:12 NT-Pro-B Natriuret Pep 1504 pg/mL (0-450) H 05/09/20 20:12 Total Protein 8.2 g/dL (6.3-8.2) 05/09/20 20:12 Albumin 3.6 g/dL (3.9-5) L 05/09/20 20:12 Albumin/Globulin Ratio 0.8 % 05/09/20 20:12 HCG, Qual Negative (Negative) 05/09/20 20:12 [place]/IV: Voiding Method Toilet IV Catheter Type [Right INT / Saline Lock Antecubital] Active Medications - Current Medications Current Medications: Generic Name Dose Route Start Last Admin Trade Name Freq PRN Reason Stop Dose Admin Aspirin 81 mg 05/10/20 10:00 05/10/20 09:47 Baby Aspirin PO 81 mg QDAY KALI Administration Diltiazem HCl 240 mg 05/10/20 10:00 05/10/20 09:46 Cardizem Cd PO 240 mg QDAY KALI Administration Enoxaparin Sodium 40 mg 05/10/20 22:00 Enoxaparin SUB-Q QDAY@2200 [facility] Protocol Ferrous Sulfate 325 mg 05/10/20 10:00 05/10/20 09:47 Feosol PO 325 mg QDAY KALI Administration Furosemide 40 mg 05/10/20 06:00 05/10/20 09:47 Lasix PO 40 mg BID@0600,1800 KALI Administration Insulin Glargine 30 units 05/10/20 10:00 05/10/20 09:48 Lantus SUB-Q 30 units BID KALI Administration Insulin Human Lispro 0 unit 05/10/20 07:30 05/10/20 08:32 Humalog SUB-Q Not Given ACHS [facility] Protocol Metoprolol Tartrate 50 mg 05/10/20 02:00 05/10/20 09:46 Metoprolol PO 50 mg BID KALI Administration Multivitamins 1 each 05/10/20 10:00 05/10/20 09:46 Theragran Tab PO 1 each QDAY [facility] Administration Nitroglycerin 0.4 mg 05/10/20 00:04 Nitrostat SL .Q5MIN PRN Chest Pain Pravastatin Sodium 80 mg 05/10/20 22:00 Pravachol PO QHS KALI Tramadol HCl 25 mg 05/10/20 00:12 Ultram PO Q4H PRN Pain, Moderate (4-6)
[2020-05-10] MEDS ORDERED: carvediloL 6.25 MG TAB PO SCH (10:00)
--- NOTE | 2020-05-10 11:02 | Consultation ---
<JULIO CESAR SHEPHERD - Last Filed: 05/10/20 11:16> History of Present Illness Consult date: 05/10/20 Consult reason: congestive heart failure History of present illness: This is a 49-year old, morbidly obese woman with chronic shortness of breath, COPD and obstructive sleep apnea who presents with shortness of breath on exertion. Patient denies chest pain and denies palpitations. There is no lower extremity edema. Chest x-ray is negative for interstitial edema. Laboratory studies shows chronic anemia with a Hbg of 7.3.There is also mild elevation of pBNP at 1504. A cardiology consultation has been requested for CHF. Patient is known to [facility] and is on rate control strategy for management of chronic atrial fibrillation. Patient was previously considered no longer a candidate for oral anticoagulation due to severe anemia and GI bleed. Serial echocardiogram reports normal left ventricular systolic function, ejection fraction 55-60%. ECG is atrial fibrillation with a well controlled ventricular rate. Past History Past Medical History: atrial fib, anemia, diabetes, hypertension, hyperlipidemia, other (gall stone) Past Surgical History: tonsillectomy. denies: valve replacement, total hip replacement Social history: denies: IV drug use Family history: CAD, diabetes, hypertension, other (hyperlidemia) Medications and Allergies Allergies Allergy/AdvReac Type Severity Reaction Status Date / Time cephalexin monohydrate Allergy Nausea Verified 05/09/20 18:39 [From Keflex] ciprofloxacin Allergy Diarrhea Verified 05/09/20 18:39 lisinopril Allergy Unknown Verified 05/09/20 18:39 Penicillins Allergy Swelling Verified 05/09/20 18:39 metformin AdvReac Diarrhea Verified 05/09/20 18:39 Home Medications Medication Instructions Recorded Confirmed Last Taken Type Simvastatin [Zocor TAB] 40 mg PO QHS 06/02/13 06/24/19 06/22/19 History dilTIAZem CD [Cardizem CD] 240 mg PO QDAY #30 capsule 06/05/13 06/24/19 06/23/19 Rx Apixaban [Eliquis] 5 mg PO BID 11/12/16 06/24/19 06/23/19 History Digoxin 250 mcg PO Q24HR #30 tablet 11/13/16 06/24/19 06/23/19 Rx Metoprolol [Lopressor TAB] 50 mg PO BID 06/17/19 06/24/19 06/23/19 History Benzonatate [Tessalon Perles] 100 mg PO Q8HR #30 capsule 06/21/19 06/24/19 06/23/19 Rx Empagliflozin [Jardiance] 10 mg PO DAILY #30 tablet 06/21/19 06/24/19 Unknown Rx Insulin Glargine [Lantus VIAL] 70 units SUB-Q BID #5 vial 06/21/19 06/24/19 06/22/19 Rx Lispro Insulin [HumaLOG] 45 unit SUB-Q TIDAC #5 vial 06/21/19 06/24/19 06/22/19 Rx Pantoprazole [Protonix TAB] 40 mg PO QDAY #30 tablet 06/21/19 06/24/19 06/23/19 Rx Sennosides/Docusate [Senokot S] 2 tab PO Q12H PRN #30 tablet 06/21/19 06/24/19 Unknown Rx polyethylene glycoL 3350 [Miralax 17 gm PO QDAY PRN #30 powd.pack 06/21/19 06/24/19 Unknown Rx 3350] Albuterol Mdi (or & Nicu Only) 2 puff IH QID PRN #8.5 gram 06/26/19 Unknown Rx [ProAir HFA Inhaler] Azithromycin [Zithromax TAB] 500 mg PO QDAY #4 tablet 06/26/19 Unknown Rx Prednisone [predniSONE 10 mg 10 mg PO .TAPER #1 tab.ds.pk 06/26/19 Unknown Rx (6-Day Pack, 21 Tabs)] Clindamycin [Clindamycin CAP] 300 mg PO Q8H #21 cap 08/16/19 Unknown Rx Naproxen 500 mg PO Q12H PRN #12 tablet 08/16/19 Unknown Rx Active Meds: Active Medications Aspirin (Baby Aspirin) 81 mg PO QDAY [facility] Last Admin: 05/10/20 09:47 Dose: 81 mg Documented by: Diltiazem HCl (Cardizem Cd) 240 mg PO QDAY [facility] Last Admin: 05/10/20 09:46 Dose: 240 mg Documented by: Enoxaparin Sodium (Enoxaparin) 40 mg SUB-Q QDAY@2200 [facility]; Protocol Ferrous Sulfate (Feosol) 325 mg PO QDAY [facility] Last Admin: 05/10/20 09:47 Dose: 325 mg Documented by: Furosemide (Lasix) 40 mg PO BID@0600,1800 [facility] Last Admin: 05/10/20 09:47 Dose: 40 mg Documented by: Insulin Glargine (Lantus) 30 units SUB-Q BID [facility] Last Admin: 05/10/20 09:48 Dose: 30 units Documented by: Insulin Human Lispro (Humalog) 0 unit SUB-Q ACHS [facility]; Protocol Last Admin: 05/10/20 08:32 Dose: Not Given Documented by: Metoprolol Tartrate (Metoprolol) 50 mg PO BID [facility] Last Admin: 05/10/20 09:46 Dose: 50 mg Documented by: Multivitamins (Theragran Tab) 1 each PO QDAY [facility] Last Admin: 05/10/20 09:46 Dose: 1 each Documented by: Nitroglycerin (Nitrostat) 0.4 mg SL .Q5MIN PRN PRN Reason: Chest Pain Pravastatin Sodium (Pravachol) 80 mg PO QHS [facility] Tramadol HCl (Ultram) 25 mg PO Q4H PRN PRN Reason: Pain, Moderate (4-6) Review of Systems Cardiovascular: dyspnea on exertion, no chest pain, no palpitations, no edema Respiratory: no cough Physical Examination Vital Signs Temp Pulse Resp BP Pulse Ox 97.7 F 89 20 137/63 100 05/09/20 19:20 05/09/20 19:20 05/09/20 19:20 05/09/20 19:20 05/09/20 19:20 General appearance: no acute distress, obese HEENT: Positive: PERRL Neck: Positive: trachea midline Cardiac: Positive: irregularly irregular Lungs: Positive: Decreased Breath Sounds Neuro: Positive: Grossly Intact Extremities: Absent: edema Results 05/09/20 20:12 05/09/20 20:12 Cardiac Enzymes 05/09/20 Range/Units 20:12 AST 19 (5-40) units/L Coagulation 05/09/20 Range/Units 20:12 PT 16.5 H (12.2-14.9) Sec. INR 1.33 H (0.87-1.13) APTT 31.0 (24.2-36.6) Sec. CBC 05/09/20 Range/Units 20:12 WBC 7.2 (4.5-11.0) K/mm3 RBC 3.69 (3.65-5.03) M/mm3 Hgb 7.3 L (10.1-14.3) gm/dl Hct 24.2 L (30.3-42.9) % Plt Count 176 (140-440) K/mm3 Lymph # (Auto) 0.6 L (1.2-5.4) K/mm3 [place] # (Auto) 0.6 (0.0-0.8) K/mm3 Eos # (Auto) 0.1 (0.0-0.4) K/mm3 Baso # (Auto) 0.1 (0.0-0.1) K/mm3 Comprehensive Metabolic Panel 05/09/20 Range/Units 20:12 Sodium 133 L (137-145) mmol/L Potassium 4.5 (3.6-5.0) mmol/L Chloride 99.4 (98-107) mmol/L Carbon Dioxide 22 (22-30) mmol/L BUN 23 H (7-17) mg/dL Creatinine 0.7 (0.6-1.2) mg/dL Glucose 291 H (65-100) mg/dL Calcium 9.0 (8.4-10.2) mg/dL AST 19 (5-40) units/L ALT 8 (7-56) units/L Alkaline Phosphatase 133 H (35-129) units/L Total Protein 8.2 (6.3-8.2) g/dL Albumin 3.6 L (3.9-5) g/dL Assessment and Plan Permanent atrial fibrillation rate controlled previously considered no longer a candidate for oral anticoagulation due to severe anemia and GI bleed. Chronic shortness of breath cardiac cath in 2014 showing normal coronary arteries. Type 2 diabetes mellitus Essential primary hypertension Morbid obesity Obstructive sleep apnea Chronic Anemia Hx of COPD Recommendations: Echocardiogram for LVEF reassessment. Continue rate controlling agents for permanent atrial fibrillation. Defer to pulmonary for management of the patient's COPD and obstructive sleep apnea. <GEOVANY BOOKER Last Filed: 05/11/20 12:43> History of Present Illness History of present illness: I SAW THIS PT & AGREE WITH THE Dx & Tx PLAN. Medications and Allergies Active Meds: Active Medications Acetaminophen (Acetaminophen 325 Mg Tab) 650 mg PO Q4H PRN PRN Reason: Pain, Mild (1-3) Last Admin: 05/11/20 02:31 Dose: 650 mg Documented by: Aspirin (Baby Aspirin) 81 mg PO QDAY [facility] Last Admin: 05/11/20 09:19 Dose: 81 mg Documented by: Diltiazem HCl (Cardizem Cd) 240 mg PO QDAY [facility] Last Admin: 05/11/20 09:19 Dose: 240 mg Documented by: Enoxaparin Sodium (Enoxaparin) 40 mg SUB-Q QDAY@2200 [facility]; Protocol Last Admin: 05/10/20 21:40 Dose: 40 mg Documented by: Ferrous Sulfate (Feosol) 325 mg PO QDAY [facility] Last Admin: 05/11/20 09:19 Dose: 325 mg Documented by: Furosemide (Lasix) 40 mg PO BID@0600,1800 [facility] Last Admin: 05/11/20 07:12 Dose: 40 mg Documented by: Sodium Chloride (Nacl 0.9% 500 Ml) 500 mls @ 0 mls/hr IV ONCE NR Stop: 05/12/20 10:03 Magnesium Sulfate (Magnesium Sulfate 2gm/50ml) 2 gm in 50 mls @ 25 mls/hr IV ONCE ONE Stop: 05/11/20 14:59 Insulin Glargine (Lantus) 30 units SUB-Q BID [facility] Last Admin: 05/11/20 09:18 Dose: 30 units Documented by: Insulin Human Regular (Insulin Regular, Human 100 Unit/Ml 3ml Vial) 0 unit SUB- Q ACHS [facility]; Protocol Last Admin: 05/11/20 09:18 Dose: 2 unit Documented by: Metoprolol Tartrate (Metoprolol) 50 mg PO BID [facility] Last Admin: 05/11/20 09:20 Dose: 50 mg Documented by: Multivitamins (Theragran Tab) 1 each PO QDAY [facility] Last Admin: 05/11/20 09:19 Dose: 1 each Documented by: Nitroglycerin (Nitrostat) 0.4 mg SL .Q5MIN PRN PRN Reason: Chest Pain Pravastatin Sodium (Pravachol) 80 mg PO QHS [facility] Last Admin: 05/10/20 21:36 Dose: 80 mg Documented by: Tramadol HCl (Ultram) 25 mg PO Q4H PRN PRN Reason: Pain, Moderate (4-6) Physical Examination Vital Signs Temp Pulse Resp BP Pulse Ox 97.7 F 89 20 137/63 100 05/09/20 19:20 05/09/20 19:20 05/09/20 19:20 05/09/20 19:20 05/09/20 19:20 Results 05/11/20 08:23 05/11/20 08:23 CBC 05/11/20 Range/Units 08:23 WBC 6.4 (4.5-11.0) K/mm3 RBC 3.57 L (3.65-5.03) M/mm3 Hgb 6.9 L (10.1-14.3) gm/dl Hct 23.1 L (30.3-42.9) % Plt Count 164 (140-440) K/mm3 Lymph # (Auto) 0.7 L (1.2-5.4) K/mm3 [place] # (Auto) 0.6 (0.0-0.8) K/mm3 Eos # (Auto) 0.1 (0.0-0.4) K/mm3 Baso # (Auto) 0.1 (0.0-0.1) K/mm3 Comprehensive Metabolic Panel 05/11/20 Range/Units 08:23 Sodium 134 L (137-145) mmol/L Potassium 3.7 (3.6-5.0) mmol/L Chloride 99.2 (98-107) mmol/L Carbon Dioxide 27 (22-30) mmol/L BUN 22 H (7-17) mg/dL Creatinine 0.7 (0.6-1.2) mg/dL Glucose 202 H (65-100) mg/dL Calcium 8.7 (8.4-10.2) mg/dL
[2020-05-10 11:28] LABS: Basophils # (Auto) 0.1 K/mm3 (0.0-0.1); Eosinophils # (Auto) 0.1 K/mm3 (0.0-0.4); Eosinophils % (Auto) 1.7 % (0.0-4.3); Hematocrit 21.8 % (30.3-42.9); Hemoglobin 6.5 gm/dl (10.1-14.3); Lymphocytes # (Auto) 0.7 K/mm3 (1.2-5.4); Lymphocytes % (Auto) 10.1 % (13.4-35.0); Mean Corpuscular HGB Conc 30 % (30-34); Monocytes # (Auto) 0.5 K/mm3 (0.0-0.8); Monocytes % (Auto) 7.8 % (0.0-7.3); Platelet Count 161 K/mm3 (140-440); Red Blood Count 3.38 M/mm3 (3.65-5.03); Red Cell Distribution Width 18.9 % (13.2-15.2)
[2020-05-10 11:30] LABS: Mean Corpuscular Volume 64 fl (79-97)
[2020-05-10] MEDS: ACETAMINOPHEN 325 MG TAB PO PRN (16:04)
--- NOTE | 2020-05-10 16:07 | Event Note ---
Date: 05/10/20 Full consult dictated - female w/ weakness, anemia and 70 lobs recent weight loss now ct scan possible malignancy and fullness optical designer area - suspect non primary GI etiology - rec SOLID WASTE COLLECTOR and Hematology consult - follow labs - no plans to scope at this time
--- NOTE | 2020-05-10 16:19 | Consultation ---
GASTROENTEROLOGY CONSULT NOTE REFERRING PHYSICIAN: Dr. Hamlet Garcia. INDICATIONS: 1. Anemia. 2. Abnormal CT scan. HISTORY OF PRESENT: A 49-year-old obese white female with past medical history of AFib, anemia, diabetes, congestive heart failure, hypertension, high cholesterol, now being seen by GI for weight loss, anemia and abdominal pain. The patient is a morbidly obese female who presents with general progressive weakness and shortness of breath. She was COVID positive in 11/2019 and treated. She reports no obvious signs of blood loss including bright red blood per rectum, melena or hematemesis. She reports no significant other specific GI complaints. The patient subsequently came to Emergency Room, was noted to be anemic, had an abnormal CT scan. GI is consulted in management. She denies any history of GI evaluation in the past. PAST MEDICAL HISTORY: 1. Atrial fibrillation. 2. Anemia. 3. Diabetes. 4. CHF. 5. Hypertension. 6. High cholesterol. PAST SURGICAL HISTORY: Valve replacement, total hip replacement. MEDICATIONS: Reviewed and updated in chart. ALLERGIES: TO KEFLEX, CIPRO, LISINOPRIL, PENICILLIN AND METFORMIN. SOCIAL HISTORY: Denies alcohol, tobacco or IV drug abuse. FAMILY HISTORY: Negative for colon cancer, IBD or liver disease. REVIEW OF SYSTEMS: GENERAL: Reports some weakness. HEENT: No visual complaints or tinnitus. PULMONARY: Shortness of breath. No cough. No chest pain. GASTROINTESTINAL: Reports occasional loose stool. All points of 13-point review of systems otherwise negative. PHYSICAL EXAMINATION: VITAL SIGNS: Temperature of 97.6, pulse 74, respirations 20, blood pressure 106/54. GENERAL: Fairly morbidly obese female in no acute distress. HEENT: Pupils equal, round and reactive. PULMONARY: Clear to auscultation bilaterally. CARDIOVASCULAR: Regular rhythm. Normal S1, S2. Palpable soft. SKIN: No obvious rashes. LABORATORY DATA: Pertinent for white count of 6.8, hemoglobin and hematocrit of 6.5 and 21.8, platelet count of 161. Coags pertinent for INR of 1.33. Chem-[address] scan of abdomen and pelvis with contrast on 05/10/2020 showed development of extensive retroperitoneal and pelvic lymphadenopathy raising the possibility of nonproliferative neoplasm versus metastatic disease as well as enlarged cervix and vagina more prominent from prior exam. ASSESSMENT AND PLAN: A 49-year-old morbidly obese white female with multiple medical problems, presents now with general weakness with noted anemia. The patient's history is also pertinent for reported 70-pound weight loss over the last 6-[address] scan raised the possibility of some kind of nonproliferative disease versus potential metastatic disease with abnormal fullness in the STORAGE GARAGE MANAGER area. Management as noted below. PLAN: 1. We will review CT scan. 2. Would recommend both Hematology and STORAGE GARAGE MANAGER consultation. 3. At this time, I do not feel that the patient's primary issues are GI and so we will hold on any endoscopic evaluation. 4. Follow hematocrit and transfuse as needed. 5. We will follow up in a.m. JOB# [id number] NICK/NTS
[2020-05-10] MEDS: PRAVASTATIN 80 MG TAB PO SCH (21:36)
[2020-05-10] MEDS: ENOXAPARIN 40 MG/0.4 ML INJ SUB-Q SCH (21:40)
[2020-05-10] MEDS ORDERED: INSULIN REGULAR, HUMAN 100 UNIT/ML 3ML VIAL SUB-Q SCH (22:30)
[2020-05-11] MEDS: ACETAMINOPHEN 325 MG TAB PO PRN (02:31)
[2020-05-11] MEDS: INSULIN REGULAR, HUMAN 100 UNIT/ML 3ML VIAL SUB-Q SCH ×6 (04:35→22:03)
[2020-05-11] MEDS: INSULIN LISPRO 100 UNIT/ML VIAL 3 mL SUB-Q SCH (06:37)
[2020-05-11] MEDS: FUROSEMIDE 40 MG TAB PO SCH ×3 (07:12→17:00)
[2020-05-11] MEDS: INSULIN GLARGINE 100 UNITS/ML SUB-Q SCH ×2 (09:18→22:03)
[2020-05-11] MEDS: ASPIRIN 81 MG TAB CHEW PO SCH (09:19)
[2020-05-11] MEDS: MULTIVITAMINS ,THERAPEUTIC TAB PO SCH (09:19)
[2020-05-11] MEDS: FERROUS SULFATE 325 MG TAB PO SCH (09:19)
[2020-05-11] MEDS: dilTIAZem CD 240 MG CAP PO SCH (09:19)
[2020-05-11] MEDS: METOPROLOL TARTRATE 50 MG TAB PO SCH ×2 (09:20→22:04)
--- NOTE | 2020-05-11 09:27 | Progress Note ---
<JULIO CESAR SHEPHERD - Last Filed: 05/11/20 09:32> Assessment and Plan Heart failure with a preserved ejection fraction echo this presentation - normal LVEF 55%. Permanent atrial fibrillation rate controlled previously considered no longer a candidate for oral anticoagulation due to severe anemia and vaginal bleed. Chronic shortness of breath cardiac cath in 2014 showing normal coronary arteries. Abdominal pain CT scan suspicious for malignancy Type 2 diabetes mellitus Essential primary hypertension Morbid obesity Obstructive sleep apnea Chronic Anemia Hx of COPD Recommendations: Continue medical therapy for permanent atrial fibrillation and heart failure with a preserved ejection fraction. Subjective Date of service: 05/11/20 Interval history: Patient reports she is diuresing well. Atrial fibrillation with a well controlled ventricular rate on telemetry. Objective Vital Signs Temp Pulse Resp BP Pulse Ox 05/11/20 08:07 97.5 F L 77 20 129/65 98 05/11/20 04:02 98.0 F 74 18 96/54 99 05/11/20 02:31 20 05/11/20 02:30 16 96 05/11/20 00:13 98.0 F 89 18 116/53 98 05/10/20 22:00 82 05/10/20 21:55 98 05/10/20 21:36 80 122/60 05/10/20 20:19 97.9 F 80 20 122/60 98 05/10/20 16:30 98.0 F 78 20 104/58 98 05/10/20 11:26 98.3 F 74 20 106/54 97 - Physical Examination General: No Apparent Distress, Other (obese) HEENT: Positive: PERRL Neck: Positive: trachea midline Cardiac: Positive: irregularly irregular Lungs: Positive: Decreased Breath Sounds Neuro: Positive: Grossly Intact Extremities: Absent: edema - Labs and Meds CBC 05/10/20 Range/Units 10:32 WBC 6.8 (4.5-11.0) K/mm3 RBC 3.38 L (3.65-5.03) M/mm3 Hgb 6.5 L (10.1-14.3) gm/dl Hct 21.8 L (30.3-42.9) % Plt Count 161 (140-440) K/mm3 Lymph # (Auto) 0.7 L (1.2-5.4) K/mm3 [place] # (Auto) 0.5 (0.0-0.8) K/mm3 Eos # (Auto) 0.1 (0.0-0.4) K/mm3 Baso # (Auto) 0.1 (0.0-0.1) K/mm3 <GEOVANY BOOKER - Last Filed: 05/11/20 12:40> Subjective Interval history: I SAW THIS PT & AGREE WITH THE Dx & Tx PLAN. Objective Vital Signs Temp Pulse Resp BP Pulse Ox 05/11/20 12:03 32.1 F L 92 H 20 129/70 100 05/11/20 08:07 97.5 F L 77 20 129/65 98 05/11/20 04:02 98.0 F 74 18 96/54 99 05/11/20 02:31 20 05/11/20 02:30 16 96 05/11/20 00:13 98.0 F 89 18 116/53 98 05/10/20 22:00 82 05/10/20 21:55 98 05/10/20 21:36 80 122/60 05/10/20 20:19 97.9 F 80 20 122/60 98 05/10/20 16:30 98.0 F 78 20 104/58 98 - Labs and Meds CBC 05/11/20 Range/Units 08:23 WBC 6.4 (4.5-11.0) K/mm3 RBC 3.57 L (3.65-5.03) M/mm3 Hgb 6.9 L (10.1-14.3) gm/dl Hct 23.1 L (30.3-42.9) % Plt Count 164 (140-440) K/mm3 Lymph # (Auto) 0.7 L (1.2-5.4) K/mm3 [place] # (Auto) 0.6 (0.0-0.8) K/mm3 Eos # (Auto) 0.1 (0.0-0.4) K/mm3 Baso # (Auto) 0.1 (0.0-0.1) K/mm3 Comprehensive Metabolic Panel 05/11/20 Range/Units 08:23 Sodium 134 L (137-145) mmol/L Potassium 3.7 (3.6-5.0) mmol/L Chloride 99.2 (98-107) mmol/L Carbon Dioxide 27 (22-30) mmol/L BUN 22 H (7-17) mg/dL Creatinine 0.7 (0.6-1.2) mg/dL Glucose 202 H (65-100) mg/dL Calcium 8.7 (8.4-10.2) mg/dL
[2020-05-11 09:31] LABS: Basophils # (Auto) 0.1 K/mm3 (0.0-0.1); Basophils % (Auto) 0.8 % (0.0-1.8); Eosinophils # (Auto) 0.1 K/mm3 (0.0-0.4); Eosinophils % (Auto) 1.6 % (0.0-4.3); Hematocrit 23.1 % (30.3-42.9); Hemoglobin 6.9 gm/dl (10.1-14.3); Lymphocytes # (Auto) 0.7 K/mm3 (1.2-5.4); Lymphocytes % (Auto) 11.6 % (13.4-35.0); Mean Corpuscular HGB Conc 30 % (30-34); Mean Corpuscular Volume 65 fl (79-97); Monocytes # (Auto) 0.6 K/mm3 (0.0-0.8); Monocytes % (Auto) 8.9 % (0.0-7.3); Platelet Count 164 K/mm3 (140-440); Red Blood Count 3.57 M/mm3 (3.65-5.03); Red Cell Distribution Width 19.1 % (13.2-15.2)
[2020-05-11 09:41] LABS: Blood Urea Nitrogen 22 mg/dL (7-17); Calcium 8.7 mg/dL (8.4-10.2); Hemolysis Index 1
[2020-05-11 09:59] LABS: BUN/Creatinine Ratio 31
[2020-05-11] MEDS ORDERED: SODIUM CHLORIDE 0.9% 500 ML 500 ML IV NR (10:04)
--- NOTE | 2020-05-11 10:11 | Progress Note ---
Assessment and Plan Assessment and plan: Anemia. Patient reports history of GI bleed while on Eliquis for A. fib. Check Hemoccult of stool. GI consultation pending. Follow-up CT of abdomen and pelvis. Anticoagulation on hold. Weight loss. Patient reports 70 pound recent weight loss. Permanent atrial fibrillation. Continue diltiazem/metoprolol for rate control. Acute on chronic diastolic heart failure. Continue IV Lasix and GDMT for heart failure. Cardiology consulted. History of cardiac cath in 2014 showing normal coronary arteries. Type 2 diabetes mellitus. Continue SSRI and Accu-Cheks. Tight glycemic control. Essential primary hypertension. Continue home antihypertensive medications. Morbid obesity. Patient will be counseled on weight loss and importance of a balanced diet. Obstructive sleep apnea. O2 to maintain sats greater than 92%. Hyperlipidemia. Continue Pravachol. Asthma with no evidence of acute exacerbation. 05/11/2020. CT scan reveals extensive retroperitoneal and pelvic lymphadenopathy concerning for neoplasm/metastasis. Also, enlargement of the cervix and vaginal prominence that may represent primary neoplasm. Patient also with significant weight loss and anemia. 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 Check tumor markers of alpha-fetoprotein, CA-125, CA 199 and CEA. Hemoglobin 6.9 today. T & C and transfuse 2 units PRBCs. History Interval history: No new issues overnight. Hospitalist Physical - Constitutional Vitals: Temp Pulse Resp BP Pulse Ox 97.5 F L 77 20 129/65 98 05/11/20 08:07 05/11/20 08:07 05/11/20 08:07 05/11/20 08:07 05/11/20 08:07 General appearance: Present: no acute distress, obese - EENT Eyes: Present: PERRL, EOM intact ENT: hearing intact, clear oral mucosa, dentition normal - Neck Neck: Present: supple, normal ROM - Respiratory Respiratory effort: normal Respiratory: bilateral: CTA - Cardiovascular Rhythm: regular Heart Sounds: Present: S1 & S2. Absent: gallop, rub - Extremities Extremities: no ischemia, No edema, Full ROM - Abdominal General gastrointestinal: soft, non-tender, non-distended, normal bowel sounds - Integumentary Integumentary: Present: clear, warm, dry - Neurologic Neurologic: CNII-XII intact, moves all extremities HEART Score - HEART Score Troponin: Troponin T < 0.010 ng/mL (0.00-0.029) 05/09/20 20:12 Results - Labs CBC & Chem 7: 05/11/20 08:23 05/11/20 08:23 Labs: Laboratory Last Values WBC 6.4 K/mm3 (4.5-11.0) 05/11/20 08:23 RBC 3.57 M/mm3 (3.65-5.03) L 05/11/20 08:23 Hgb 6.9 gm/dl (10.1-14.3) L 05/11/20 08:23 Hct 23.1 % (30.3-42.9) L 05/11/20 08:23 MCV 65 fl (79-97) L 05/11/20 08:23 MCH 19 pg (28-32) L 05/11/20 08:23 MCHC 30 % (30-34) 05/11/20 08:23 RDW 19.1 % (13.2-15.2) H 05/11/20 08:23 Plt Count 164 K/mm3 (140-440) 05/11/20 08:23 Lymph % (Auto) 11.6 % (13.4-35.0) L 05/11/20 08:23 [place] % (Auto) 8.9 % (0.0-7.3) H 05/11/20 08:23 Eos % (Auto) 1.6 % (0.0-4.3) 05/11/20 08:23 Baso % (Auto) 0.8 % (0.0-1.8) 05/11/20 08:23 Lymph # (Auto) 0.7 K/mm3 (1.2-5.4) L 05/11/20 08:23 [place] # (Auto) 0.6 K/mm3 (0.0-0.8) 05/11/20 08:23 Eos # (Auto) 0.1 K/mm3 (0.0-0.4) 05/11/20 08:23 Baso # (Auto) 0.1 K/mm3 (0.0-0.1) 05/11/20 08:23 Seg Neutrophils % 77.1 % (40.0-70.0) H 05/11/20 08:23 Seg Neutrophils # 4.9 K/mm3 (1.8-7.7) 05/11/20 08:23 PT 16.5 Sec. (12.2-14.9) H 05/09/20 20:12 INR 1.33 (0.87-1.13) H 05/09/20 20:12 APTT 31.0 Sec. (24.2-36.6) 05/09/20 20:12 D-Dimer 643.75 ng/mlDDU (0-234) H 05/09/20 20:12 Sodium 134 mmol/L (137-145) L 05/11/20 08:23 Potassium 3.7 mmol/L (3.6-5.0) 05/11/20 08:23 Chloride 99.2 mmol/L (98-107) 05/11/20 08:23 Carbon Dioxide 27 mmol/L (22-30) 05/11/20 08:23 Anion Gap 12 mmol/L 05/11/20 08:23 BUN 22 mg/dL (7-17) H 05/11/20 08:23 Creatinine 0.7 mg/dL (0.6-1.2) 05/11/20 08:23 Estimated GFR > 60 ml/min 05/11/20 08:23 BUN/Creatinine Ratio 31 % 05/11/20 08:23 Glucose 202 mg/dL (65-100) H 05/11/20 08:23 POC Glucose 195 mg/dL (70-105) H 05/11/20 07:45 Hemoglobin A1c 8.6 % (4-6) H 05/09/20 20:12 Calcium 8.7 mg/dL (8.4-10.2) 05/11/20 08:23 Magnesium 1.60 mg/dL (1.7-2.3) L 05/10/20 Unknown Iron 19 ug/dL (37-170) L 05/10/20 Unknown TIBC 362 mcg/dL (250-450) 05/10/20 Unknown Total Bilirubin 0.70 mg/dL (0.1-1.2) 05/09/20 20:12 AST 19 units/L (5-40) 05/09/20 20:12 ALT 8 units/L (7-56) 05/09/20 20:12 Alkaline Phosphatase 133 units/L (35-129) H 05/09/20 20:12 Troponin T < 0.010 ng/mL (0.00-0.029) 05/09/20 20:12 NT-Pro-B Natriuret Pep 1504 pg/mL (0-450) H 05/09/20 20:12 Total Protein 8.2 g/dL (6.3-8.2) 05/09/20 20:12 Albumin 3.6 g/dL (3.9-5) L 05/09/20 20:12 Albumin/Globulin Ratio 0.8 % 05/09/20 20:12 HCG, Qual Negative (Negative) 05/09/20 20:12 - Diagnostic Impressions Diagnostic Impressions: Echocardiogram 05/10/20 00:10 Transthoracic Echocardiogram Indication: Dyspnea BP: 114/67 HR: 100 Conclusions *The left ventricular chamber size is normal. *Global left ventricular wall motion and contractility are within normal limits. *Global left ventricular systolic function is normal. *The estimated ejection fraction is 55-60%. *Abnormal left ventricular diastolic filling is observed, consistent with impaired relaxation. *The left atrium is mildly dilated. *Mild mitral leaflet calcification is visualized. *Mild mitral leaflet calcification is visualized. *There is mild mitral regurgitation. MV leaflet movement is normal. *The right ventricular systolic pressure is calculated at 42 mmHg. Findings Left Ventricle: The left ventricular chamber size is normal. Global left ventricular wall motion and contractility are within normal limits. Global left ventricular systolic function is normal. The estimated ejection fraction is 55-60%. Abnormal left ventricular diastolic filling is observed, consistent with impaired relaxation. Left Atrium: The left atrium is mildly dilated. Right Ventricle: The right ventricle is not well visualized. Right Atrium: The right atrium is not well visualized. The interatrial septum bowed toward the left. Interatrial septal aneurysm is noted,saline contrast is non diagnostic for evalautuion of shunt. Aortic Valve: The aortic valve leaflets are mildly thickened. Mitral Valve: Mild mitral leaflet calcification is visualized. There is mild mitral regurgitation. MV leaflet movement is normal. The mean gradient across the mitral valve is 6 mmHg. The peak gradient across the mitral valve is 15 mmHg. Tricuspid Valve: The tricuspid valve leaflets are normal. There is mild tricuspid regurgitation. The right ventricular systolic pressure is calculated at 42 mmHg. Pulmonic Valve: The pulmonic valve appears normal. There is trace pulmonic regurgitation. Pericardium: There is no pericardial effusion. Aorta: The aorta appears normal. There is mild dilatation of the ascending aorta. Venous: The inferior vena cava is dilated. There is less than 50% respiratory change in the inferior vena cava dimension. Contrast: Intravenous contrast was used to enhance endocardial border definition. Intravenous agitated saline contrast was used to assess intracardiac shunting. Measurements Chambers 2D Name Value Normal Range IVSd (2D) 1.09 cm (0.6 - 1.1) LVPWd (2D) 1.07 cm (0.6 - 1.1) LVIDd (2D) 4.71 cm (3.7 - 5.6) LVIDs (2D) 3.65 cm (2 - 3.8) LV FS (2D) 22.48 % - Ao root diameter (2D) 2.96 cm (2 - 3.7) Volumes/Mass Name Value Normal Range LA ESV SP 4CH (A/L) 92.8 ml - LA ESV SP 2CH (A/L) 87.83 ml - LA ESV BP (A/L) 92.27 ml - LA ESV BP (A/L) index 37.81 ml/m2 - LA ESV SP 4CH (MOD) 89.22 ml - LA ESV SP 2CH (MOD) 86.16 ml - LA ESV BP (MOD) 89.44 ml - LA ESV BP (MOD) index 36.65 ml/m2 - Diastolic/Systolic Function Name Value Normal Range MV E-wave Vmax 1.29 m/sec - MV deceleration time 243.86 msec - MV A-wave Vmax 0.77 m/sec - MV E:A ratio 1.67 ratio - Aortic Valve Name Value Normal Range AV Vmax 1.73 m/sec - AV VTI 35.33 cm - AV peak gradient 11.98 mmHg - AV mean gradient 6.81 mmHg - LVOT diameter 2.18 cm - LVOT Vmax 1.22 m/sec - LVOT VTI 25.64 cm - LVOT peak gradient 5.97 mmHg - LVOT mean gradient 3.61 mmHg - SV LVOT 95.28 ml - ARUN (continuity Vmax) 2.62 cm2 - ARUN (continuity VTI) 2.7 cm2 - Ascending Ao 3.53 cm - Mitral Valve Name Value Normal Range MV Vmax 1.94 m/sec - MV VTI 38.66 cm - MV peak gradient 15 mmHg - MV mean gradient 6 mmHg - MR Vmax 4.63 m/sec - MVA (continuity VTI) 2.46 cm2 - Tricuspid Valve Name Value Normal Range TR Vmax 2.67 m/sec - TR peak gradient 28.41 mmHg - RAP 15 mmHg - RVSP 42 mmHg - IVC diameter 2.54 cm (1.2 - 2.3) Pulmonic Valve/Qp:Qs Name Value Normal Range PV Vmax 1.27 m/sec - PV peak gradient 6.49 mmHg - CA end-diastolic Vmax 1.6 m/sec - PV acceleration time 76.12 msec - Garber/IV: Voiding Method Toilet IV Catheter Type [Right INT / Saline Lock Antecubital] Active Medications - Current Medications Current Medications: Generic Name Dose Route Start Last Admin Trade Name Freq PRN Reason Stop Dose Admin Acetaminophen 650 mg 05/10/20 15:51 05/11/20 02:31 Acetaminophen 325 Mg Tab PO 650 mg Q4H PRN Administration Pain, Mild (1-3) Aspirin 81 mg 05/10/20 10:00 05/11/20 09:19 Baby Aspirin PO 81 mg QDAY KALI Administration Diltiazem HCl 240 mg 05/10/20 10:00 05/11/20 09:19 Cardizem Cd PO 240 mg QDAY KALI Administration Enoxaparin Sodium 40 mg 05/10/20 22:00 05/10/20 21:40 Enoxaparin SUB-Q 40 mg QDAY@2200 KALI Administration Protocol Ferrous Sulfate 325 mg 05/10/20 10:00 05/11/20 09:19 Feosol PO 325 mg QDAY KALI Administration Furosemide 40 mg 05/10/20 06:00 05/11/20 07:12 Lasix PO 40 mg BID@0600,1800 KALI Administration Sodium Chloride 500 mls @ 0 mls/hr 05/11/20 10:04 Nacl 0.9% 500 Ml IV 05/11/20 10:05 ONCE ONE As Directed Insulin Glargine 30 units 05/10/20 10:00 05/11/20 09:18 Lantus SUB-Q 30 units BID KALI Administration Insulin Human Regular 0 unit 05/10/20 07:30 05/11/20 09:18 Insulin Regular, Human 100 Unit/Ml 3ml Vial SUB-Q 2 unit ACHS KALI Administration Protocol Metoprolol Tartrate 50 mg 05/10/20 02:00 05/11/20 09:20 Metoprolol PO 50 mg BID KALI Administration Multivitamins 1 each 05/10/20 10:00 05/11/20 09:19 Theragran Tab PO 1 each QDAY KALI Administration Nitroglycerin 0.4 mg 05/10/20 00:04 Nitrostat SL .Q5MIN PRN Chest Pain Pravastatin Sodium 80 mg 05/10/20 22:00 05/10/20 21:36 Pravachol PO 80 mg QHS KALI Administration Tramadol HCl 25 mg 05/10/20 00:12 Ultram PO Q4H PRN Pain, Moderate (4-6) Nutrition/Malnutrition Assess - Dietary Evaluation Nutrition/Malnutrition Findings: Nutrition Notes Start: 05/10/20 12:28 Freq: Status: Active Protocol: Document 05/10/20 12:29 EN (Rec: 05/10/20 12:37 EN [id number]) Co-Sign 05/10/20 12:29 LM Nutrition Notes Need for Assessment generated from: MD Order,Education Initial or Follow up Brief Note Current Diagnosis Diabetes,Hypertension,Heart Failure,Hyperlipidemia Other Pertinent Diagnosis Anemia, Gall stones, Sleep apnea Current Diet Cardiac Beach Body Weight (kg) 0 Subjective/Other Information MD consult for diet education. Pt diagnosed with new onset CHF. Pt reports eating well with good appetite both [employer]ER and during admission. Pt consuming 100% of meals. Pt accepted diet education for both CHF and DM. Pt has no further questions. #1 Nutrition Diagnosis Food and nutrition-related knowledge deficit Etiology no previous CHF and DM education As Evidenced by Signs and Symptoms pt expressed desire for education and verbalized questions Nutrition Intervention Change Diet Order: Cardiac/Consistent CHO Teaching Recipient Patient Learning Readiness Good Teaching Methods Discussion,Handout Response to Teaching Verbalize understanding Education Handouts Provided CHF and Consitent CHO handouts Barriers to Learning No Barriers RD phone number provided Yes Patient aware of follow up options Yes Anticipated Discharge Needs: Cardiac/Consistent CHO diet Revisit per MD consult or patient Sign Off request:
[2020-05-11] MEDS ORDERED: MAGNESIUM SULFATE 2 GM/50 ML BAG IV ONE (13:00)
--- NOTE | 2020-05-11 14:46 | Gastroenterology Progress Note ---
Assessment and Plan GI: pt w/ anemia and abnormal ct scan raising possible malignancy and [employer]IR[employer] HELPER pathology - denies GI complaints and at this time do not think primary issues GI primary - follow h/h, transfuse as needed - DAIRY HELPER and Oncology input - no plans to scope at this time - Dr. Lewis on this wknd, if feels needed please recall - will sign off Subjective Date of service: 05/11/20 Interval history: - pt denies GI complaints overnight Objective - Constitutional Vitals: Temp Pulse Resp BP Pulse Ox 32.1 F L 92 H 20 129/70 100 05/11/20 12:03 05/11/20 12:03 05/11/20 12:03 05/11/20 12:03 05/11/20 12:03 General appearance: no acute distress - EENT Eyes: PERRL - Respiratory Respiratory: bilateral: CTA - Cardiovascular Rhythm: regular Heart Sounds: Present: S1 & S2 - Gastrointestinal General gastrointestinal: Present: soft, non-tender, non-distended - Labs CBC & Chem 7: 05/11/20 08:23 05/11/20 08:23 Labs: Laboratory Results - last 24 hr 05/10/20 05/10/20 05/11/20 16:59 21:29 07:45 WBC RBC Hgb Hct MCV MCH MCHC RDW Plt Count Lymph % (Auto) [place] % (Auto) Eos % (Auto) Baso % (Auto) Lymph # (Auto) [place] # (Auto) Eos # (Auto) Baso # (Auto) Seg Neutrophils % Seg Neutrophils # Sodium Potassium Chloride Carbon Dioxide Anion Gap BUN Creatinine Estimated GFR BUN/Creatinine Ratio Glucose POC Glucose 212 H 202 H 195 H Calcium 05/11/20 05/11/20 05/11/20 08:23 08:23 12:19 WBC 6.4 RBC 3.57 L Hgb 6.9 L Hct 23.1 L MCV 65 L MCH 19 L MCHC 30 RDW 19.1 H Plt Count 164 Lymph % (Auto) 11.6 L [place] % (Auto) 8.9 H Eos % (Auto) 1.6 Baso % (Auto) 0.8 Lymph # (Auto) 0.7 L [place] # (Auto) 0.6 Eos # (Auto) 0.1 Baso # (Auto) 0.1 Seg Neutrophils % 77.1 H Seg Neutrophils # 4.9 Sodium 134 L Potassium 3.7 Chloride 99.2 Carbon Dioxide 27 Anion Gap 12 BUN 22 H Creatinine 0.7 Estimated GFR > 60 BUN/Creatinine Ratio 31 Glucose 202 H POC Glucose 236 H Calcium 8.7
--- NOTE | 2020-05-11 18:02 | Event Note ---
Date: 05/11/20 I noticed this patient this evening on my census and I have not received a call. I made a call to the floor spoke to her nurse, will inform me that at present patient stable without any vaginal bleeding and that the community nurse had attempted to call my office earlier. Due to patient being stable this evening I will come in and see to patient on tomorrow for evaluation.
[2020-05-11] MEDS ORDERED: PANTOPRAZOLE 40 MG TAB PO ONE (20:45)
[2020-05-11] MEDS: PRAVASTATIN 80 MG TAB PO SCH (22:03)
[2020-05-11] MEDS: ENOXAPARIN 40 MG/0.4 ML INJ SUB-Q SCH (22:04)
[2020-05-11] MEDS ORDERED: ALUM-MAG HYDROXIDE-SIMETHICONE 200-200-20MG/5ML ORAL LIQD 30 ML PO PRN (22:52)
--- NOTE | 2020-05-12 01:48 | Hem/Onc Consultation ---
History of Present Illness - History of Present Illness heme/onc consult for lymphadenopathy televisit via tsqrd 49yo obese woman (330 lbs) with impressive lymphadenopathy has been eval for LA during te past few months-->hosp at a different hospital found to have severe anemia-->stopped eliquis (was prescribed for atrial fib), recommended LN biopsy wasnt able to get back into oncologist of have LN biopsy now presents with abd distension, night sweats since admission found to have severe anemia-->RBC transfusion found to have impressive retroperitoneal and pelvic LA PMH: atrial fib, DM requiring insulin, obesity with presumed ANGELIA, maybe obesity hypoventilation FH: neg for malig (does not know father); sister had cervical cancer, mom CAD, strokes SOC: neg for smoking or alcohol use ROS: abd distension, weight loss 393-->320's constipation no recent GI tract bleeding Exam: obese woman abd distended A/O not jaundiced legs swollen DATA REVIEWED BELOW Fe sat about 5% Abd CT showed Lymphadenopathy, no dominant tumor IMPRESSION: presumed malignancy, lymphoma vs. carcinoma good enough functinal status and young age-->will need anti-tumor therapy severe iron deficiency and iron defic anemia, likely due to chronic GI tract bleeding RECOMMEND: Surgery eval to consider exp serbian for excisional mesenteric LN biopsy labs to include CEA, LDH, CA125 RBC transfusion IV iron infusions anticipate outpatient referral to in-person heme/onc or [facility] (depending on dx) Home Medications Medication Instructions Recorded Confirmed Last Taken Simvastatin [Zocor TAB] 40 mg PO QHS 06/02/13 06/24/19 06/22/19 Apixaban [Eliquis] 5 mg PO BID 11/12/16 06/24/19 06/23/19 Metoprolol [Lopressor TAB] 50 mg PO BID 06/17/19 06/24/19 06/23/19 Previous Rx's x Laboratory Last Values WBC 6.4 K/mm3 (4.5-11.0) 05/11/20 08:23 Hgb 6.9 gm/dl (10.1-14.3) L 05/11/20 08:23 Hct 23.1 % (30.3-42.9) L 05/11/20 08:23 MCV 65 fl (79-97) L 05/11/20 08:23 Plt Count 164 K/mm3 (140-440) 05/11/20 08:23 PT 16.5 Sec. (12.2-14.9) H 05/09/20 20:12 INR 1.33 (0.87-1.13) H 05/09/20 20:12 APTT 31.0 Sec. (24.2-36.6) 05/09/20 20:12 D-Dimer 643.75 ng/mlDDU (0-234) H 05/09/20 20:12 Creatinine 0.7 mg/dL (0.6-1.2) 05/11/20 08:23 Iron 19 ug/dL (37-170) L 05/10/20 Unknown TIBC 362 mcg/dL (250-450) 05/10/20 Unknown Total Bilirubin 0.70 mg/dL (0.1-1.2) 05/09/20 20:12 AST 19 units/L (5-40) 05/09/20 20:12 ALT 8 units/L (7-56) 05/09/20 20:12 Alkaline Phosphatase 133 units/L (35-129) H 05/09/20 20:12 Crossmatch See Detail 05/11/20 15:20 Past History Past Medical History: atrial fib, anemia, diabetes, hypertension, hyperlipidemia, other (gall stone) Past Surgical History: tonsillectomy. denies: valve replacement, total hip replacement Social history: denies: IV drug use Family history: CAD, diabetes, hypertension, other (hyperlidemia) Medications and Allergies Allergies Allergy/AdvReac Type Severity Reaction Status Date / Time cephalexin monohydrate Allergy Nausea Verified 05/09/20 18:39 [From Keflex] ciprofloxacin Allergy Diarrhea Verified 05/09/20 18:39 lisinopril Allergy Unknown Verified 05/09/20 18:39 Penicillins Allergy Swelling Verified 05/09/20 18:39 metformin AdvReac Diarrhea Verified 05/09/20 18:39 Home Medications Medication Instructions Recorded Confirmed Last Taken Type Simvastatin [Zocor TAB] 40 mg PO QHS 06/02/13 06/24/19 06/22/19 History dilTIAZem CD [Cardizem CD] 240 mg PO QDAY #30 capsule 06/05/13 06/24/19 06/23/19 Rx Apixaban [Eliquis] 5 mg PO BID 11/12/16 06/24/19 06/23/19 History Digoxin 250 mcg PO Q24HR #30 tablet 11/13/16 06/24/19 06/23/19 Rx Metoprolol [Lopressor TAB] 50 mg PO BID 06/17/19 06/24/19 06/23/19 History Benzonatate [Tessalon Perles] 100 mg PO Q8HR #30 capsule 06/21/19 06/24/19 06/23/19 Rx Empagliflozin [Jardiance] 10 mg PO DAILY #30 tablet 06/21/19 06/24/19 Unknown Rx Insulin Glargine [Lantus VIAL] 70 units SUB-Q BID #5 vial 06/21/19 06/24/19 06/22/19 Rx Lispro Insulin [HumaLOG] 45 unit SUB-Q TIDAC #5 vial 06/21/19 06/24/19 06/22/19 Rx Pantoprazole [Protonix TAB] 40 mg PO QDAY #30 tablet 06/21/19 06/24/19 06/23/19 Rx Sennosides/Docusate [Senokot S] 2 tab PO Q12H PRN #30 tablet 06/21/19 06/24/19 Unknown Rx polyethylene glycoL 3350 [Miralax 17 gm PO QDAY PRN #30 powd.pack 06/21/19 06/24/19 Unknown Rx 3350] Albuterol Mdi (or & Nicu Only) 2 puff IH QID PRN #8.5 gram 06/26/19 Unknown Rx [ProAir HFA Inhaler] Azithromycin [Zithromax TAB] 500 mg PO QDAY #4 tablet 06/26/19 Unknown Rx Prednisone [predniSONE 10 mg 10 mg PO .TAPER #1 tab.ds.pk 06/26/19 Unknown Rx (6-Day Pack, 21 Tabs)] Clindamycin [Clindamycin CAP] 300 mg PO Q8H #21 cap 08/16/19 Unknown Rx Naproxen 500 mg PO Q12H PRN #12 tablet 08/16/19 Unknown Rx Active Meds: Active Medications Acetaminophen (Acetaminophen 325 Mg Tab) 650 mg PO Q4H PRN PRN Reason: Pain, Mild (1-3) Last Admin: 05/11/20 02:31 Dose: 650 mg Documented by: Al Hydrox/Mg Hydrox/Simethicone (Alum-Mag Hydroxide-Simethicone [phone]/5ml Oral Liqd 30 Ml) 30 ml PO Q4H PRN PRN Reason: Indigestion Last Admin: 05/11/20 23:19 Dose: 30 ml Documented by: Aspirin (Baby Aspirin) 81 mg PO QDAY [facility] Last Admin: 05/11/20 09:19 Dose: 81 mg Documented by: Diltiazem HCl (Cardizem Cd) 240 mg PO QDAY [facility] Last Admin: 05/11/20 09:19 Dose: 240 mg Documented by: Enoxaparin Sodium (Enoxaparin) 40 mg SUB-Q QDAY@2200 [facility]; Protocol Last Admin: 05/11/20 22:04 Dose: 40 mg Documented by: Ferrous Sulfate (Feosol) 325 mg PO QDAY [facility] Last Admin: 05/11/20 09:19 Dose: 325 mg Documented by: Furosemide (Lasix) 40 mg PO BID@0600,1800 [facility] Last Admin: 05/11/20 17:00 Dose: Not Given Documented by: Sodium Chloride (Nacl 0.9% 500 Ml) 500 mls @ 0 mls/hr IV ONCE NR Stop: 05/12/20 10:03 Insulin Glargine (Lantus) 30 units SUB-Q BID [facility] Last Admin: 05/11/20 22:03 Dose: 30 units Documented by: Insulin Human Regular (Insulin Regular, Human 100 Unit/Ml 3ml Vial) 0 unit SUB- Q ACHS [facility]; Protocol Last Admin: 05/11/20 22:03 Dose: 2 unit Documented by: Metoprolol Tartrate (Metoprolol) 50 mg PO BID [facility] Last Admin: 05/11/20 22:04 Dose: 50 mg Documented by: Multivitamins (Theragran Tab) 1 each PO QDAY [facility] Last Admin: 05/11/20 09:19 Dose: 1 each Documented by: Nitroglycerin (Nitrostat) 0.4 mg SL .Q5MIN PRN PRN Reason: Chest Pain Pravastatin Sodium (Pravachol) 80 mg PO QHS [facility] Last Admin: 05/11/20 22:03 Dose: 80 mg Documented by: Tramadol HCl (Ultram) 25 mg PO Q4H PRN PRN Reason: Pain, Moderate (4-6) Exam - Constitutional Vitals: Last Vital Signs Temp 98.3 F 05/11/20 19:47 Pulse 86 05/11/20 20:49 Resp 20 05/11/20 19:47 BP 111/51 05/11/20 19:47 Pulse Ox 98 05/11/20 19:47 Results - Labs lab Results: Laboratory Results - last 24 hr 05/11/20 05/11/20 05/11/20 07:45 08:23 08:23 WBC 6.4 RBC 3.57 L Hgb 6.9 L Hct 23.1 L MCV 65 L MCH 19 L MCHC 30 RDW 19.1 H Plt Count 164 Lymph % (Auto) 11.6 L [place] % (Auto) 8.9 H Eos % (Auto) 1.6 Baso % (Auto) 0.8 Lymph # (Auto) 0.7 L [place] # (Auto) 0.6 Eos # (Auto) 0.1 Baso # (Auto) 0.1 Seg Neutrophils % 77.1 H Seg Neutrophils # 4.9 Sodium 134 L Potassium 3.7 Chloride 99.2 Carbon Dioxide 27 Anion Gap 12 BUN 22 H Creatinine 0.7 Estimated GFR > 60 BUN/Creatinine Ratio 31 Glucose 202 H POC Glucose 195 H Calcium 8.7 Blood Type Antibody Screen Antibody Identification Antigen Identification Crossmatch 05/11/20 05/11/20 05/11/20 12:19 15:20 15:52 WBC RBC Hgb Hct MCV MCH MCHC RDW Plt Count Lymph % (Auto) [place] % (Auto) Eos % (Auto) Baso % (Auto) Lymph # (Auto) [place] # (Auto) Eos # (Auto) Baso # (Auto) Seg Neutrophils % Seg Neutrophils # Sodium Potassium Chloride Carbon Dioxide Anion Gap BUN Creatinine Estimated GFR BUN/Creatinine Ratio Glucose POC Glucose 236 H 251 H Calcium Blood Type A NEGATIVE Antibody Screen Positive Antibody Identification Anti-s Antigen Identification Cancelled Crossmatch See Detail 05/11/20 21:36 WBC RBC Hgb Hct MCV MCH MCHC RDW Plt Count Lymph % (Auto) [place] % (Auto) Eos % (Auto) Baso % (Auto) Lymph # (Auto) [place] # (Auto) Eos # (Auto) Baso # (Auto) Seg Neutrophils % Seg Neutrophils # Sodium Potassium Chloride Carbon Dioxide Anion Gap BUN Creatinine Estimated GFR BUN/Creatinine Ratio Glucose POC Glucose 212 H Calcium Blood Type Antibody Screen Antibody Identification Antigen Identification Crossmatch
[2020-05-12] MEDS: ACETAMINOPHEN 325 MG TAB PO PRN ×2 (05:44→23:52)
[2020-05-12] MEDS: FUROSEMIDE 40 MG TAB PO SCH (05:44)
[2020-05-12] MEDS: INSULIN REGULAR, HUMAN 100 UNIT/ML 3ML VIAL SUB-Q SCH ×3 (08:39→17:38)
--- NOTE | 2020-05-12 08:39 | Progress Note ---
Assessment and Plan Acute on chronic Heart failure with a preserved ejection fraction echo this presentation - normal LVEF 55%. Left sided pleuritic chest pain Permanent atrial fibrillation rate controlled previously considered no longer a candidate for oral anticoagulation due to severe anemia and vaginal bleed. Chronic shortness of breath cardiac cath in 2014 showing normal coronary arteries. Abdominal pain CT scan suspicious for malignancy Type 2 diabetes mellitus Essential primary hypertension Morbid obesity Obstructive sleep apnea Chronic Anemia Hx of COPD Recommendations: Check ESR and CRP Check CTA chest Pe protocol for left sided pleuritic chest pain If no evidence of pathology on CT chest, start colchicine 0.6 mg po bid for pleuritic type chest pain Subjective Date of service: 05/12/20 Principal diagnosis: Shortness of breath Interval history: Patient is complaining of pleuritic type chest pain this morning on the left side worse with upper body movement, cough and inspiration. She also reports shortness of breath and refractory edema. She states that her diuresis is not effective. Objective Vital Signs Temp Pulse Resp BP Pulse Ox 05/12/20 05:44 20 05/12/20 05:13 98.0 F 90 18 116/54 97 05/12/20 00:07 98.6 F 85 20 124/74 97 05/11/20 20:49 86 05/11/20 19:47 98.3 F 64 20 111/51 98 05/11/20 15:51 97.9 F 83 123/60 97 05/11/20 12:03 32.1 F L 92 H 20 129/70 100 - Physical Examination General: No Apparent Distress, Other (obese) HEENT: Positive: PERRL Neck: Positive: trachea midline Cardiac: Positive: irregularly irregular, Systolic Murmur Lungs: Positive: Decreased Breath Sounds Neuro: Positive: Grossly Intact Extremities: Absent: edema - Labs and Meds Cardiac Enzymes 05/12/20 Range/Units 07:09 Lactate Dehydrogenase 374 H (91-180) units/L CBC 05/11/20 Range/Units 08:23 WBC 6.4 (4.5-11.0) K/mm3 RBC 3.57 L (3.65-5.03) M/mm3 Hgb 6.9 L (10.1-14.3) gm/dl Hct 23.1 L (30.3-42.9) % Plt Count 164 (140-440) K/mm3 Lymph # (Auto) 0.7 L (1.2-5.4) K/mm3 [place] # (Auto) 0.6 (0.0-0.8) K/mm3 Eos # (Auto) 0.1 (0.0-0.4) K/mm3 Baso # (Auto) 0.1 (0.0-0.1) K/mm3 Comprehensive Metabolic Panel 05/11/20 Range/Units 08:23 Sodium 134 L (137-145) mmol/L Potassium 3.7 (3.6-5.0) mmol/L Chloride 99.2 (98-107) mmol/L Carbon Dioxide 27 (22-30) mmol/L BUN 22 H (7-17) mg/dL Creatinine 0.7 (0.6-1.2) mg/dL Glucose 202 H (65-100) mg/dL Calcium 8.7 (8.4-10.2) mg/dL
--- NOTE | 2020-05-12 09:04 | Consultation ---
History of Present Illness Consult date: 05/12/20 Requesting physician: ABDON OLIVAS Reason for consult: pelvic mass History of present illness: This is a 49-year-old white female, para 0 who was admitted through the ED with complaints of generalized edema and increasing shortness of breath with abdominal pain. During her care and work-up on admission she had a abdominal pelvic CT scan which showed a cervical vaginal mass which is larger than was previous seen in July of this year and with evidence of enlargement of her pelvic lymph nodes. I was consulted to see patient due to this mass. Patient states her last Pap smear was 27 years ago and was normal. Patient states her last menstrual cycle was 1 month ago. She states she is always had a history of irregular menses with bouts of menorrhagia lasting from 2 to 4 weeks. Patient states she has been treated in the past with control pills but no formal work-up for this menorrhalgia. Patient states she was hospitalized approximately 5 months ago with menorrhalgia and anemia and received 4 units of packed red blood cells. Patient denies any history of sexually transmitted diseases. She presently has no vaginal bleeding. Patient also states she has been diagnosed with a prolapsed bladder and has urinary incontinence. Past History Past Medical History: arrhythmia, heart disease, hypertension, diabetes, other (See admission H&P for more details) Past Surgical History: other (Tonsillectomy) TEST DRIVER History: other (Patient states last Pap smear was approximately 27 years ago and was normal) - Obstetrical History : 0 Para: 0 Hx # Term Pregnancies: 0 Number of Pregnancies: 0 Spontaneous Abortions: 0 Induced : 0 Number of Living Children: 0 Medications and Allergies Allergies Allergy/AdvReac Type Severity Reaction Status Date / Time cephalexin monohydrate Allergy Nausea Verified 05/09/20 18:39 [From Keflex] ciprofloxacin Allergy Diarrhea Verified 05/09/20 18:39 lisinopril Allergy Unknown Verified 05/09/20 18:39 Penicillins Allergy Swelling Verified 05/09/20 18:39 metformin AdvReac Diarrhea Verified 05/09/20 18:39 Home Medications Medication Instructions Recorded Confirmed Last Taken Type Simvastatin [Zocor TAB] 40 mg PO QHS 06/02/13 06/24/19 06/22/19 History dilTIAZem CD [Cardizem CD] 240 mg PO QDAY #30 capsule 01/10/1206/24/19 06/23/19 Rx Apixaban [Eliquis] 5 mg PO BID 11/12/16 06/24/19 06/23/19 History Digoxin 250 mcg PO Q24HR #30 tablet 11/13/16 06/24/19 06/23/19 Rx Metoprolol [Lopressor TAB] 50 mg PO BID 06/17/19 06/24/19 06/23/19 History Benzonatate [Tessalon Perles] 100 mg PO Q8HR #30 capsule 06/21/19 06/24/19 06/23/19 Rx Empagliflozin [Jardiance] 10 mg PO DAILY #30 tablet 06/21/19 06/24/19 Unknown Rx Insulin Glargine [Lantus VIAL] 70 units SUB-Q BID #5 vial 06/21/19 06/24/19 06/22/19 Rx Lispro Insulin [HumaLOG] 45 unit SUB-Q TIDAC #5 vial 06/21/19 06/24/19 06/22/19 Rx Pantoprazole [Protonix TAB] 40 mg PO QDAY #30 tablet 06/21/19 06/24/19 06/23/19 Rx Sennosides/Docusate [Senokot S] 2 tab PO Q12H PRN #30 tablet 06/21/19 06/24/19 Unknown Rx polyethylene glycoL 3350 [Miralax 17 gm PO QDAY PRN #30 powd.pack 06/21/19 06/24/19 Unknown Rx 3350] Albuterol Mdi (or & Nicu Only) 2 puff IH QID PRN #8.5 gram 06/26/19 Unknown Rx [ProAir HFA Inhaler] Azithromycin [Zithromax TAB] 500 mg PO QDAY #4 tablet 06/26/19 Unknown Rx Prednisone [predniSONE 10 mg 10 mg PO .TAPER #1 tab.ds.pk 06/26/19 Unknown Rx (6-Day Pack, 21 Tabs)] Clindamycin [Clindamycin CAP] 300 mg PO Q8H #21 cap 08/16/19 Unknown Rx Naproxen 500 mg PO Q12H PRN #12 tablet 08/16/19 Unknown Rx Active Meds: Active Medications Acetaminophen (Acetaminophen 325 Mg Tab) 650 mg PO Q4H PRN PRN Reason: Pain, Mild (1-3) Last Admin: 05/12/20 05:44 Dose: 650 mg Documented by: Al Hydrox/Mg Hydrox/Simethicone (Alum-Mag Hydroxide-Simethicone [id number]/5ml Oral Liqd 30 Ml) 30 ml PO Q4H PRN PRN Reason: Indigestion Last Admin: 05/11/20 23:19 Dose: 30 ml Documented by: Aspirin (Baby Aspirin) 81 mg PO QDAY [facility] Last Admin: 05/11/20 09:19 Dose: 81 mg Documented by: Diltiazem HCl (Cardizem Cd) 240 mg PO QDAY [facility] Last Admin: 05/11/20 09:19 Dose: 240 mg Documented by: Enoxaparin Sodium (Enoxaparin) 40 mg SUB-Q QDAY@2200 [facility]; Protocol Last Admin: 05/11/20 22:04 Dose: 40 mg Documented by: Ferrous Sulfate (Feosol) 325 mg PO QDAY [facility] Last Admin: 05/11/20 09:19 Dose: 325 mg Documented by: Furosemide (Lasix) 40 mg PO BID@0600,1800 [facility] Last Admin: 05/12/20 05:44 Dose: 40 mg Documented by: Sodium Chloride (Nacl 0.9% 500 Ml) 500 mls @ 0 mls/hr IV ONCE NR Stop: 05/12/20 10:03 Insulin Glargine (Lantus) 30 units SUB-Q BID [facility] Last Admin: 05/11/20 22:03 Dose: 30 units Documented by: Insulin Human Regular (Insulin Regular, Human 100 Unit/Ml 3ml Vial) 0 unit SUB- Q ACHS [facility]; Protocol Last Admin: 05/12/20 08:39 Dose: Not Given Documented by: Metoprolol Tartrate (Metoprolol) 50 mg PO BID [facility] Last Admin: 05/11/20 22:04 Dose: 50 mg Documented by: Multivitamins (Theragran Tab) 1 each PO QDAY [facility] Last Admin: 05/11/20 09:19 Dose: 1 each Documented by: Nitroglycerin (Nitrostat) 0.4 mg SL .Q5MIN PRN PRN Reason: Chest Pain Pravastatin Sodium (Pravachol) 80 mg PO QHS [facility] Last Admin: 05/11/20 22:03 Dose: 80 mg Documented by: Tramadol HCl (Ultram) 25 mg PO Q4H PRN PRN Reason: Pain, Moderate (4-6) Review of Systems Genitourinary: other (Patient complains of urinary incontinence) - Vital Signs Vital signs: Vital Signs Temp Pulse Resp BP Pulse Ox 97.7 F 89 20 137/63 100 05/09/20 19:20 05/09/20 19:20 05/09/20 19:20 05/09/20 19:20 05/09/20 19:20 Temp Pulse Resp BP Pulse Ox 98.0 F 90 20 116/54 97 05/12/20 05:13 05/12/20 05:13 05/12/20 05:44 05/12/20 05:13 05/12/20 05:13 - Physical Exam Abdomen: Positive: other (Obese) Genitourinary (Female): Positive: normal external genitalia Vulva: both: normal Vagina: Positive: normal moisture Cervix: Positive: friable, other (Difficult visualization due to speculum exam in a normal bed w/o stirrups and her obesity) Uterus: Positive: other (Unable to palpate due to obesity) Extremities: Positive: edema Results Result Diagrams: 05/11/20 08:23 05/11/20 08:23 Abnormal lab results 05/11/20 05/11/20 05/11/20 Range/Units 08:23 08:23 12:19 RBC 3.57 L (3.65-5.03) M/mm3 Hgb 6.9 L (10.1-14.3) gm/dl Hct 23.1 L (30.3-42.9) % MCV 65 L (79-97) fl MCH 19 L (28-32) pg RDW 19.1 H (13.2-15.2) % Lymph % (Auto) 11.6 L (13.4-35.0) % [place] % (Auto) 8.9 H (0.0-7.3) % Lymph # (Auto) 0.7 L (1.2-5.4) K/mm3 Seg Neutrophils % 77.1 H (40.0-70.0) % Sodium 134 L (137-145) mmol/L BUN 22 H (7-17) mg/dL Glucose 202 H (65-100) mg/dL POC Glucose 236 H (70-105) mg/dL Lactate Dehydrogenase (91-180) units/L Crossmatch 05/11/20 05/11/20 05/11/20 Range/Units 15:20 15:52 21:36 RBC (3.65-5.03) M/mm3 Hgb (10.1-14.3) gm/dl Hct (30.3-42.9) % MCV (79-97) fl MCH (28-32) pg RDW (13.2-15.2) % Lymph % (Auto) (13.4-35.0) % [place] % (Auto) (0.0-7.3) % Lymph # (Auto) (1.2-5.4) K/mm3 Seg Neutrophils % (40.0-70.0) % Sodium (137-145) mmol/L BUN (7-17) mg/dL Glucose (65-100) mg/dL POC Glucose 251 H 212 H (70-105) mg/dL Lactate Dehydrogenase (91-180) units/L Crossmatch See Detail 05/12/20 05/12/20 Range/Units 07:09 07:33 RBC (3.65-5.03) M/mm3 Hgb (10.1-14.3) gm/dl Hct (30.3-42.9) % MCV (79-97) fl MCH (28-32) pg RDW (13.2-15.2) % Lymph % (Auto) (13.4-35.0) % [place] % (Auto) (0.0-7.3) % Lymph # (Auto) (1.2-5.4) K/mm3 Seg Neutrophils % (40.0-70.0) % Sodium (137-145) mmol/L BUN (7-17) mg/dL Glucose (65-100) mg/dL POC Glucose 119 H (70-105) mg/dL Lactate Dehydrogenase 374 H (91-180) units/L Crossmatch All other labs normal. CT scan - abdomen: report reviewed Assessment and Plan - Patient Problems (1) Cervix neoplasm Current Visit: Yes Status: Acute Plan to address problem: Patient cervical findings and findings of pelvic node enlargement appears to be consistent with a probable cervical malignancy. This patient needs to be evaluated by a TEST DRIVER oncologist, of which there is none on staff at this hospital. My recommendation is that Ms. Rea is stable enough to be discharged she can be follow-up with her TEST DRIVER oncologist at [facility] Dr. Bryan Krueger who has a office with [place]. If this patient condition still needs hos pitalization I recommend that she be transferred to a facility that has a TEST DRIVER oncologist on staff. Thank you very much for this consultation please call me if I can be of any further assistance.
[2020-05-12] MEDS: FERROUS SULFATE 325 MG TAB PO SCH (09:36)
[2020-05-12] MEDS: MULTIVITAMINS ,THERAPEUTIC TAB PO SCH (09:36)
[2020-05-12] MEDS: METOPROLOL TARTRATE 50 MG TAB PO SCH ×2 (09:37→21:19)
[2020-05-12] MEDS: ASPIRIN 81 MG TAB CHEW PO SCH (09:37)
[2020-05-12] MEDS: dilTIAZem CD 240 MG CAP PO SCH (09:38)
[2020-05-12] MEDS: INSULIN GLARGINE 100 UNITS/ML SUB-Q SCH ×2 (09:39→21:24)
--- NOTE | 2020-05-12 10:27 | Progress Note ---
Assessment and Plan Assessment and plan: Anemia. Patient reports history of GI bleed while on Eliquis for A. fib. Check Hemoccult of stool. GI consultation pending. Follow-up CT of abdomen and pelvis. Anticoagulation on hold. Weight loss. Patient reports 70 pound recent weight loss. Permanent atrial fibrillation. Continue diltiazem/metoprolol for rate control. Acute on chronic diastolic heart failure. Continue IV Lasix and GDMT for heart failure. Cardiology consulted. History of cardiac cath in 2014 showing normal coronary arteries. Type 2 diabetes mellitus. Continue SSRI and Accu-Cheks. Tight glycemic control. Essential primary hypertension. Continue home antihypertensive medications. Morbid obesity. Patient will be counseled on weight loss and importance of a balanced diet. Obstructive sleep apnea. O2 to maintain sats greater than 92%. Hyperlipidemia. Continue Pravachol. Asthma with no evidence of acute exacerbation. 05/11/2020. CT scan reveals extensive retroperitoneal and pelvic lymphadenopathy concerning for neoplasm/metastasis. Also, enlargement of the cervix and vaginal prominence that may represent primary neoplasm. Patient also with significant weight loss and anemia. [employer] and hematology consultation. Check tumor markers of alpha-fetoprotein, CA-125, CA 199 and CEA. Hemoglobin 6.9 today. T & C and transfuse 2 units PRBCs. 05/12/2020. I discussed the case with Dr. Vázquez ([employer]) who reports exam does reveal cervical mass most likely cervical cancer. Patient will need outpatient follow-up with BOILER [employer] oncology. Patient with left-sided pleuritic chest pain. CTA of chest ordered to rule out PE. Patient with risk factors given probable malignancy. History Interval history: No new issues overnight. Hospitalist Physical - Constitutional Vitals: Temp Pulse Resp BP Pulse Ox 98.6 F 89 20 134/71 97 05/12/20 07:31 05/12/20 09:38 05/12/20 07:31 05/12/20 09:38 05/12/20 09:28 General appearance: Present: no acute distress, obese - EENT Eyes: Present: PERRL, EOM intact ENT: hearing intact, clear oral mucosa, dentition normal - Neck Neck: Present: supple, normal ROM - Respiratory Respiratory effort: normal Respiratory: bilateral: CTA - Cardiovascular Rhythm: regular Heart Sounds: Present: S1 & S2. Absent: gallop, rub - Extremities Extremities: no ischemia, No edema, Full ROM - Abdominal General gastrointestinal: soft, non-tender, non-distended, normal bowel sounds - Integumentary Integumentary: Present: clear, warm, dry - Neurologic Neurologic: CNII-XII intact, moves all extremities HEART Score - HEART Score Troponin: Troponin T < 0.010 ng/mL (0.00-0.029) 05/09/20 20:12 Results - Labs CBC & Chem 7: 05/11/20 08:23 05/11/20 08:23 Labs: Laboratory Last Values WBC 6.4 K/mm3 (4.5-11.0) 05/11/20 08:23 RBC 3.57 M/mm3 (3.65-5.03) L 05/11/20 08:23 Hgb 6.9 gm/dl (10.1-14.3) L 05/11/20 08:23 Hct 23.1 % (30.3-42.9) L 05/11/20 08:23 MCV 65 fl (79-97) L 05/11/20 08:23 MCH 19 pg (28-32) L 05/11/20 08:23 MCHC 30 % (30-34) 05/11/20 08:23 RDW 19.1 % (13.2-15.2) H 05/11/20 08:23 Plt Count 164 K/mm3 (140-440) 05/11/20 08:23 Lymph % (Auto) 11.6 % (13.4-35.0) L 05/11/20 08:23 [place] % (Auto) 8.9 % (0.0-7.3) H 05/11/20 08:23 Eos % (Auto) 1.6 % (0.0-4.3) 05/11/20 08:23 Baso % (Auto) 0.8 % (0.0-1.8) 05/11/20 08:23 Lymph # (Auto) 0.7 K/mm3 (1.2-5.4) L 05/11/20 08:23 [place] # (Auto) 0.6 K/mm3 (0.0-0.8) 05/11/20 08:23 Eos # (Auto) 0.1 K/mm3 (0.0-0.4) 05/11/20 08:23 Baso # (Auto) 0.1 K/mm3 (0.0-0.1) 05/11/20 08:23 Seg Neutrophils % 77.1 % (40.0-70.0) H 05/11/20 08:23 Seg Neutrophils # 4.9 K/mm3 (1.8-7.7) 05/11/20 08:23 PT 16.5 Sec. (12.2-14.9) H 05/09/20 20:12 INR 1.33 (0.87-1.13) H 05/09/20 20:12 APTT 31.0 Sec. (24.2-36.6) 05/09/20 20:12 D-Dimer 643.75 ng/mlDDU (0-234) H 05/09/20 20:12 Sodium 134 mmol/L (137-145) L 05/11/20 08:23 Potassium 3.7 mmol/L (3.6-5.0) 05/11/20 08:23 Chloride 99.2 mmol/L (98-107) 05/11/20 08:23 Carbon Dioxide 27 mmol/L (22-30) 05/11/20 08:23 Anion Gap 12 mmol/L 05/11/20 08:23 BUN 22 mg/dL (7-17) H 05/11/20 08:23 Creatinine 0.7 mg/dL (0.6-1.2) 05/11/20 08:23 Estimated GFR > 60 ml/min 05/11/20 08:23 BUN/Creatinine Ratio 31 % 05/11/20 08:23 Glucose 202 mg/dL (65-100) H 05/11/20 08:23 POC Glucose 119 mg/dL (70-105) H 05/12/20 07:33 Hemoglobin A1c 8.6 % (4-6) H 05/09/20 20:12 Calcium 8.7 mg/dL (8.4-10.2) 05/11/20 08:23 Magnesium 1.60 mg/dL (1.7-2.3) L 05/10/20 Unknown Iron 19 ug/dL (37-170) L 05/10/20 Unknown TIBC 362 mcg/dL (250-450) 05/10/20 Unknown Total Bilirubin 0.70 mg/dL (0.1-1.2) 05/09/20 20:12 AST 19 units/L (5-40) 05/09/20 20:12 ALT 8 units/L (7-56) 05/09/20 20:12 Alkaline Phosphatase 133 units/L (35-129) H 05/09/20 20:12 Lactate Dehydrogenase 374 units/L (91-180) H 05/12/20 07:09 Troponin T < 0.010 ng/mL (0.00-0.029) 05/09/20 20:12 NT-Pro-B Natriuret Pep 1504 pg/mL (0-450) H 05/09/20 20:12 Total Protein 8.2 g/dL (6.3-8.2) 05/09/20 20:12 Albumin 3.6 g/dL (3.9-5) L 05/09/20 20:12 Albumin/Globulin Ratio 0.8 % 05/09/20 20:12 HCG, Qual Negative (Negative) 05/09/20 20:12 Blood Type A NEGATIVE 05/11/20 15:20 Antibody Screen Positive 05/11/20 15:20 Antibody Identification Anti-s 05/11/20 15:20 Antigen Identification Cancelled 05/11/20 15:20 Crossmatch See Detail 05/11/20 15:20 - Diagnostic Impressions Diagnostic Impressions: Echocardiogram 05/10/20 00:10 Transthoracic Echocardiogram Indication: Dyspnea BP: 114/67 HR: 100 Conclusions *The left ventricular chamber size is normal. *Global left ventricular wall motion and contractility are within normal limits. *Global left ventricular systolic function is normal. *The estimated ejection fraction is 55-60%. *Abnormal left ventricular diastolic filling is observed, consistent with impaired relaxation. *The left atrium is mildly dilated. *Mild mitral leaflet calcification is visualized. *Mild mitral leaflet calcification is visualized. *There is mild mitral regurgitation. MV leaflet movement is normal. *The right ventricular systolic pressure is calculated at 42 mmHg. Findings Left Ventricle: The left ventricular chamber size is normal. Global left ventricular wall motion and contractility are within normal limits. Global left ventricular systolic function is normal. The estimated ejection fraction is 55-60%. Abnormal left ventricular diastolic filling is observed, consistent with impaired relaxation. Left Atrium: The left atrium is mildly dilated. Right Ventricle: The right ventricle is not well visualized. Right Atrium: The right atrium is not well visualized. The interatrial septum bowed toward the left. Interatrial septal aneurysm is noted,saline contrast is non diagnostic for evalautuion of shunt. Aortic Valve: The aortic valve leaflets are mildly thickened. Mitral Valve: Mild mitral leaflet calcification is visualized. There is mild mitral regurgitation. MV leaflet movement is normal. The mean gradient across the mitral valve is 6 mmHg. The peak gradient across the mitral valve is 15 mmHg. Tricuspid Valve: The tricuspid valve leaflets are normal. There is mild tricuspid regurgitation. The right ventricular systolic pressure is calculated at 42 mmHg. Pulmonic Valve: The pulmonic valve appears normal. There is trace pulmonic regurgitation. Pericardium: There is no pericardial effusion. Aorta: The aorta appears normal. There is mild dilatation of the ascending aorta. Venous: The inferior vena cava is dilated. There is less than 50% respiratory change in the inferior vena cava dimension. Contrast: Intravenous contrast was used to enhance endocardial border definition. Intravenous agitated saline contrast was used to assess intracardiac shunting. Measurements Chambers 2D Name Value Normal Range IVSd (2D) 1.09 cm (0.6 - 1.1) LVPWd (2D) 1.07 cm (0.6 - 1.1) LVIDd (2D) 4.71 cm (3.7 - 5.6) LVIDs (2D) 3.65 cm (2 - 3.8) LV FS (2D) 22.48 % - Ao root diameter (2D) 2.96 cm (2 - 3.7) Volumes/Mass Name Value Normal Range LA ESV SP 4CH (A/L) 92.8 ml - LA ESV SP 2CH (A/L) 87.83 ml - LA ESV BP (A/L) 92.27 ml - LA ESV BP (A/L) index 37.81 ml/m2 - LA ESV SP 4CH (MOD) 89.22 ml - LA ESV SP 2CH (MOD) 86.16 ml - LA ESV BP (MOD) 89.44 ml - LA ESV BP (MOD) index 36.65 ml/m2 - Diastolic/Systolic Function Name Value Normal Range MV E-wave Vmax 1.29 m/sec - MV deceleration time 243.86 msec - MV A-wave Vmax 0.77 m/sec - MV E:A ratio 1.67 ratio - Aortic Valve Name Value Normal Range AV Vmax 1.73 m/sec - AV VTI 35.33 cm - AV peak gradient 11.98 mmHg - AV mean gradient 6.81 mmHg - LVOT diameter 2.18 cm - LVOT Vmax 1.22 m/sec - LVOT VTI 25.64 cm - LVOT peak gradient 5.97 mmHg - LVOT mean gradient 3.61 mmHg - SV LVOT 95.28 ml - ARUN (continuity Vmax) 2.62 cm2 - ARUN (continuity VTI) 2.7 cm2 - Ascending Ao 3.53 cm - Mitral Valve Name Value Normal Range MV Vmax 1.94 m/sec - MV VTI 38.66 cm - MV peak gradient 15 mmHg - MV mean gradient 6 mmHg - MR Vmax 4.63 m/sec - MVA (continuity VTI) 2.46 cm2 - Tricuspid Valve Name Value Normal Range TR Vmax 2.67 m/sec - TR peak gradient 28.41 mmHg - RAP 15 mmHg - RVSP 42 mmHg - IVC diameter 2.54 cm (1.2 - 2.3) Pulmonic Valve/Qp:Qs Name Value Normal Range PV Vmax 1.27 m/sec - PV peak gradient 6.49 mmHg - NE end-diastolic Vmax 1.6 m/sec - PV acceleration time 76.12 msec - Garber/IV: Voiding Method Toilet IV Catheter Type [Left Forearm INT / Saline Lock ] IV Catheter Type [Right INT / Saline Lock Antecubital] Active Medications - Current Medications Current Medications: Generic Name Dose Route Start Last Admin Trade Name Freq PRN Reason Stop Dose Admin Acetaminophen 650 mg 05/10/20 15:51 05/12/20 05:44 Acetaminophen 325 Mg Tab PO 650 mg Q4H PRN Administration Pain, Mild (1-3) Al Hydrox/Mg Hydrox/Simethicone 30 ml 05/11/20 22:52 05/11/20 23:19 Alum-Mag Hydroxide-Simethicone [id number] Oral Liqd 30 Ml PO 30 ml Q4H PRN Administration Indigestion Aspirin 81 mg 05/10/20 10:00 05/12/20 09:37 Baby Aspirin PO 81 mg QDAY KALI Administration Bumetanide 1 mg 05/12/20 10:00 Bumetanide 1 Mg/4 Ml Inj IV BID@0600,1800 [facility] Diltiazem HCl 240 mg 05/10/20 10:00 05/12/20 09:38 Cardizem Cd PO 240 mg QDAY KALI Administration Enoxaparin Sodium 40 mg 05/10/20 22:00 05/11/20 22:04 Enoxaparin SUB-Q 40 mg QDAY@2200 KALI Administration Protocol Ferrous Sulfate 325 mg 05/10/20 10:00 05/12/20 09:36 Feosol PO 325 mg QDAY KALI Administration Insulin Glargine 30 units 05/10/20 10:00 05/12/20 09:39 Lantus SUB-Q 30 units BID KALI Administration Insulin Human Regular 0 unit 05/10/20 07:30 05/12/20 08:39 Insulin Regular, Human 100 Unit/Ml 3ml Vial SUB-Q Not Given ACHS [facility] Protocol Metoprolol Tartrate 50 mg 05/10/20 02:00 05/12/20 09:37 Metoprolol PO 50 mg BID KALI Administration Multivitamins 1 each 05/10/20 10:00 05/12/20 09:36 Theragran Tab PO 1 each QDAY KALI Administration Nitroglycerin 0.4 mg 05/10/20 00:04 Nitrostat SL .Q5MIN PRN Chest Pain Pravastatin Sodium 80 mg 05/10/20 22:00 05/11/20 22:03 Pravachol PO 80 mg QHS KALI Administration Tramadol HCl 25 mg 05/10/20 00:12 Ultram PO Q4H PRN Pain, Moderate (4-6) Nutrition/Malnutrition Assess - Dietary Evaluation Nutrition/Malnutrition Findings: Nutrition Notes Start: 05/10/20 12:28 Freq: Status: Active Protocol: Document 05/10/20 12:29 EN (Rec: 05/10/20 12:37 EN [id number]) Co-Sign 05/10/20 12:29 LM Nutrition Notes Need for Assessment generated from: MD Order,Education Initial or Follow up Brief Note Current Diagnosis Diabetes,Hypertension,Heart Failure,Hyperlipidemia Other Pertinent Diagnosis Anemia, Gall stones, Sleep apnea Current Diet Cardiac [place] Body Weight (kg) 0 Subjective/Other Information MD consult for diet education. Pt diagnosed with new onset CHF. Pt reports eating well with good appetite both [employer] and during admission. Pt consuming 100% of meals. Pt accepted diet education for both CHF and DM. Pt has no further questions. #1 Nutrition Diagnosis Food and nutrition-related knowledge deficit Etiology no previous CHF and DM education As Evidenced by Signs and Symptoms pt expressed desire for education and verbalized questions Nutrition Intervention Change Diet Order: Cardiac/Consistent CHO Teaching Recipient Patient Learning Readiness Good Teaching Methods Discussion,Handout Response to Teaching Verbalize understanding Education Handouts Provided CHF and Consitent CHO handouts Barriers to Learning No Barriers RD phone number provided Yes Patient aware of follow up options Yes Anticipated Discharge Needs: Cardiac/Consistent CHO diet Revisit per MD consult or patient Sign Off request:
[2020-05-12] MEDS: BUMETANIDE 1 MG/4 ML INJ IV SCH ×2 (10:32→17:39)
[2020-05-12] MEDS ORDERED: SODIUM CHLORIDE 0.9% 500 ML IVPB IV ONE (10:47)
--- NOTE | 2020-05-12 16:13 | Cat Scan Report ---
CT CHEST WITH CONTRAST INDICATION / CLINICAL INFORMATION: MAIN. TECHNIQUE: Axial CT images were obtained through the chest after the administration of 100 cc Omnipaque 300 intr avenous contrast. All CT scans at this location are performed using CT dose reduction for ALARA by mn ans of automated exposure control. COMPARISON: Chest radiograph 05/09/2020 FINDINGS: NECK BASE: No significant abnormality. HEART: Cardiomegaly. VASCULAR: Thoracic aorta demonstrates minimal atherosclerotic calcification and no acute abnormality. Central pulmonary arteries demonstrate no filling defect to suggest thromboembolism. MEDIASTINUM and MICHELE: No significant abnormality. LUNGS/AIRWAYS: 5 mm pulmonary nodule at the right upper lobe posterior pleural margin. Mild right lo wer lobe volume loss likely representing passive atelectasis. No significant interstitial airways dis ease. PLEURA: Moderate sized right pleural effusion. No pneumothorax. UPPER ABDOMEN: Gallbladder is filled with tiny calcified gallstones. Liver and spleen are enlarged. CHEST WALL: Multiple normal and upper limits normal sized axillary lymph nodes noting a 1.3 cm left a xillary lymph node (axial series 23 image 130). Moderate scattered chest wall and upper abdominal wal l body edema. SKELETAL SYSTEM: No significant abnormality. IMPRESSION: 1. Moderate sized right sided pleural effusion with associated right lower lobe passive atelectasis. 2. 5 mm pulmonary nodule in the right upper lobe. In a patient with low risk for pulmonary neoplasm n o routine follow-up is recommended. The patient with high risk for pulmonary neoplasm consider dedica yves CT chest in 12 months for further evaluation. 3. Cholelithiasis, hepatomegaly, and splenomegaly. 4. Cardiomegaly. 5. Additional findings as above. Signer Name: Aditya Grimes MD Signed: 05/12/2020 4:08 PM Workstation Name: [email or web address]
[2020-05-12] MEDS: PRAVASTATIN 80 MG TAB PO SCH (21:18)
[2020-05-12] MEDS: ENOXAPARIN 40 MG/0.4 ML INJ SUB-Q SCH (21:18)
[2020-05-13] MEDS: INSULIN REGULAR, HUMAN 100 UNIT/ML 3ML VIAL SUB-Q SCH ×5 (01:05→23:24)
[2020-05-13] MEDS: BUMETANIDE 1 MG/4 ML INJ IV SCH ×2 (05:50→17:17)
[2020-05-13 06:41] LABS: Basophils # (Auto) 0.1 K/mm3 (0.0-0.1); Basophils % (Auto) 0.7 % (0.0-1.8); Eosinophils # (Auto) 0.1 K/mm3 (0.0-0.4); Eosinophils % (Auto) 1.7 % (0.0-4.3); Hematocrit 26.4 % (30.3-42.9); Hemoglobin 8.2 gm/dl (10.1-14.3); Lymphocytes # (Auto) 0.8 K/mm3 (1.2-5.4); Lymphocytes % (Auto) 9.7 % (13.4-35.0); Mean Corpuscular HGB Conc 31 % (30-34); Monocytes % (Auto) 11.9 % (0.0-7.3); Platelet Count 156 K/mm3 (140-440); Red Blood Count 3.83 M/mm3 (3.65-5.03)
[2020-05-13 06:54] LABS: Mean Corpuscular Volume 69 fl (79-97); Red Cell Distribution Width 23.8 % (13.2-15.2)
[2020-05-13 07:00] LABS: BUN/Creatinine Ratio 26; Blood Urea Nitrogen 21 mg/dL (7-17); Calcium 8.8 mg/dL (8.4-10.2); Hemolysis Index 2
--- NOTE | 2020-05-13 08:22 | Hem/Onc Progress Note ---
Subjective Interval history: heme/onc data review 49yo obese woman (330 lbs) with impressive lymphadenopathy has been eval for LA during te past few months-->hosp at a different hospital 12/09- found to have severe anemia-->stopped eliquis (was prescribed for atrial fib), recommended LN biopsy wasnt able to get back into oncologist of have LN biopsy now presents with abd distension, night sweats since admission found to have severe anemia-->RBC transfusions done found to have impressive retroperitoneal and pelvic LA and HSM and pl effusion cervix enlargement noted on CT scan [employer] consult rec noted-->[facility] ONC referral PMH: atrial fib, DM requiring insulin, obesity with presumed ANGELIA, maybe obesity hypoventilation FH: neg for malig (does not know father); sister had cervical cancer, mom CAD, strokes SOC: neg for smoking or alcohol use ROS: abd distension, weight loss 393-->320's constipation no recent GI tract bleeding DATA REVIEWED BELOW IMPRESSION: presumed malignancy, lymphoma vs. carcinoma (she could have both) her presentation and pattern are concerning fro lymphoma severe iron deficiency and iron defic anemia, chronic GI tract bleeding or vaginal bleeding? RECOMMEND: Even though she needs [employer] ONC referral and maybe surgery, I recommend general surgery eval to consider exp lap for excisional mesenteric LN biopsy OR at the very least IVR for core LN biopsy before she leaves hospital IV iron infusions [employer] ONC referral after discharge, per Dr. Vázquez she may also need [facility] onc after discharge, depending on dx Active Medications Acetaminophen (Acetaminophen 325 Mg Tab) 650 mg PO Q4H PRN PRN Reason: Pain, Mild (1-3) Last Admin: 05/12/20 23:52 Dose: 650 mg Documented by: Al Hydrox/Mg Hydrox/Simethicone (Alum-Mag Hydroxide-Simethicone [phone]/5ml Oral Liqd 30 Ml) 30 ml PO Q4H PRN PRN Reason: Indigestion Last Admin: 05/11/20 23:19 Dose: 30 ml Documented by: Aspirin (Baby Aspirin) 81 mg PO QDAY [facility] Last Admin: 05/12/20 09:37 Dose: 81 mg Documented by: Bumetanide (Bumetanide 1 Mg/4 Ml Inj) 1 mg IV BID@0600,1800 [facility] Last Admin: 05/13/20 05:50 Dose: 1 mg Documented by: Diltiazem HCl (Cardizem Cd) 240 mg PO QDAY [facility] Last Admin: 05/12/20 09:38 Dose: 240 mg Documented by: Enoxaparin Sodium (Enoxaparin) 40 mg SUB-Q QDAY@2200 [facility]; Protocol Last Admin: 05/12/20 21:18 Dose: 40 mg Documented by: Ferrous Sulfate (Feosol) 325 mg PO QDAY [facility] Last Admin: 05/12/20 09:36 Dose: 325 mg Documented by: Insulin Glargine (Lantus) 30 units SUB-Q BID [facility] Last Admin: 05/12/20 21:24 Dose: 30 units Documented by: Insulin Human Regular (Insulin Regular, Human 100 Unit/Ml 3ml Vial) 0 unit SUB- Q ACHS [facility]; Protocol Last Admin: 05/13/20 08:11 Dose: Not Given Documented by: Metoprolol Tartrate (Metoprolol) 50 mg PO BID [facility] Last Admin: 05/12/20 21:19 Dose: 50 mg Documented by: Multivitamins (Theragran Tab) 1 each PO QDAY [facility] Last Admin: 05/12/20 09:36 Dose: 1 each Documented by: Nitroglycerin (Nitrostat) 0.4 mg SL .Q5MIN PRN PRN Reason: Chest Pain Pravastatin Sodium (Pravachol) 80 mg PO QHS [facility] Last Admin: 05/12/20 21:18 Dose: 80 mg Documented by: Tramadol HCl (Ultram) 25 mg PO Q4H PRN PRN Reason: Pain, Moderate (4-6) Laboratory Last Values WBC 8.2 K/mm3 (4.5-11.0) 05/13/20 05:59 Hgb 8.2 gm/dl (10.1-14.3) L 05/13/20 05:59 Hct 26.4 % (30.3-42.9) L 05/13/20 05:59 MCV 69 fl (79-97) L 05/13/20 05:59 Plt Count 156 K/mm3 (140-440) 05/13/20 05:59 Lactate Dehydrogenase 374 units/L (91-180) H 05/12/20 07:09 Crossmatch See Detail 05/11/20 15:20 Objective - Constitutional Vitals: Last Vital Signs Temp 98.4 F 05/12/20 23:55 Pulse 93 H 05/12/20 23:55 Resp 20 05/12/20 23:55 BP 137/73 05/12/20 23:55 Pulse Ox 97 05/12/20 23:55 - Labs Lab Results: Laboratory Results - last 24 hr 05/11/20 05/12/20 05/12/20 15:20 07:09 12:14 WBC RBC Hgb Hct MCV MCH MCHC RDW Plt Count Lymph % (Auto) [place] % (Auto) Eos % (Auto) Baso % (Auto) Lymph # (Auto) [place] # (Auto) Eos # (Auto) Baso # (Auto) Seg Neutrophils % Seg Neutrophils # Sodium Potassium Chloride Carbon Dioxide Anion Gap BUN Creatinine Estimated GFR BUN/Creatinine Ratio Glucose POC Glucose 148 H Calcium Lactate Dehydrogenase 374 H Blood Type A NEGATIVE Antibody Screen Positive Antibody Identification Anti-s Antigen Identification Cancelled Crossmatch See Detail 05/12/20 05/12/20 05/13/20 17:24 21:18 05:59 WBC 8.2 RBC 3.83 Hgb 8.2 L Hct 26.4 L MCV 69 L MCH 22 L MCHC 31 RDW 23.8 H Plt Count 156 Lymph % (Auto) 9.7 L [place] % (Auto) 11.9 H Eos % (Auto) 1.7 Baso % (Auto) 0.7 Lymph # (Auto) 0.8 L [place] # (Auto) 1.0 H Eos # (Auto) 0.1 Baso # (Auto) 0.1 Seg Neutrophils % 76.0 H Seg Neutrophils # 6.3 Sodium Potassium Chloride Carbon Dioxide Anion Gap BUN Creatinine Estimated GFR BUN/Creatinine Ratio Glucose POC Glucose 179 H 220 H Calcium Lactate Dehydrogenase Blood Type Antibody Screen Antibody Identification Antigen Identification Crossmatch 05/13/20 05/13/20 05:59 07:34 WBC RBC Hgb Hct MCV MCH MCHC RDW Plt Count Lymph % (Auto) [place] % (Auto) Eos % (Auto) Baso % (Auto) Lymph # (Auto) [place] # (Auto) Eos # (Auto) Baso # (Auto) Seg Neutrophils % Seg Neutrophils # Sodium 136 L Potassium 3.9 Chloride 99.3 Carbon Dioxide 26 Anion Gap 15 BUN 21 H Creatinine 0.8 Estimated GFR > 60 BUN/Creatinine Ratio 26 Glucose 161 H POC Glucose 143 H Calcium 8.8 Lactate Dehydrogenase Blood Type Antibody Screen Antibody Identification Antigen Identification Crossmatch Medications & Allergies - Medications Allergies/Adverse Reactions: Allergies cephalexin monohydrate [From Keflex] Allergy (Verified 05/09/20 18:39) Nausea ciprofloxacin Allergy (Verified 05/09/20 18:39) Diarrhea lisinopril Allergy (Verified 05/09/20 18:39) Unknown Cough Penicillins Allergy (Verified 05/09/20 18:39) Swelling metformin Adverse Reaction (Verified 05/09/20 18:39) Diarrhea Home Medications: Home Medications Medication Instructions Recorded Confirmed Last Taken Type Simvastatin [Zocor TAB] 40 mg PO QHS 06/02/13 05/12/20 05/12/20 10:33 History dilTIAZem CD [Cardizem CD] 240 mg PO QDAY #30 capsule 06/05/13 05/12/20 05/12/20 10:33 Rx Apixaban [Eliquis] 5 mg PO BID 11/12/16 05/12/20 06/23/19 History Digoxin 250 mcg PO Q24HR #30 tablet 11/13/16 05/12/20 06/23/19 Rx Metoprolol [Lopressor TAB] 50 mg PO BID 06/17/19 05/12/20 05/12/20 10:34 History Benzonatate [Tessalon Perles] 100 mg PO Q8HR #30 capsule 06/21/19 05/12/20 06/23/19 Rx Empagliflozin [Jardiance] 10 mg PO DAILY #30 tablet 06/21/19 05/12/20 Unknown Rx Insulin Glargine [Lantus VIAL] 70 units SUB-Q BID #5 vial 06/21/19 05/12/20 05/12/20 10:34 Rx Lispro Insulin [HumaLOG] 45 unit SUB-Q TIDAC #5 vial 06/21/19 05/12/20 05/12/20 10:34 Rx Pantoprazole [Protonix TAB] 40 mg PO QDAY #30 tablet 06/21/19 05/12/20 06/23/19 Rx Sennosides/Docusate [Senokot S] 2 tab PO Q12H PRN #30 tablet 06/21/19 05/12/20 05/12/20 10:33 Rx polyethylene glycoL 3350 [Miralax 17 gm PO QDAY PRN #30 powd.pack 06/21/19 05/12/20 Unknown Rx 3350] Albuterol Mdi (or & Nicu Only) 2 puff IH QID PRN #8.5 gram 06/26/19 05/12/20 Unknown Rx [ProAir HFA Inhaler] Azithromycin [Zithromax TAB] 500 mg PO QDAY #4 tablet 06/26/19 05/12/20 Unknown Rx Prednisone [predniSONE 10 mg 10 mg PO .TAPER #1 tab.ds.pk 06/26/19 05/12/20 Unknown Rx (6-Day Pack, 21 Tabs)] Clindamycin [Clindamycin CAP] 300 mg PO Q8H #21 cap 08/16/19 05/12/20 Unknown Rx Naproxen 500 mg PO Q12H PRN #12 tablet 08/16/19 05/12/20 Unknown Rx Active Medications: Generic Name Dose Route Start Last Admin Trade Name Freq PRN Reason Stop Dose Admin Acetaminophen 650 mg 05/10/20 15:51 05/12/20 23:52 Acetaminophen 325 Mg Tab PO 650 mg Q4H PRN Administration Pain, Mild (1-3) Al Hydrox/Mg Hydrox/Simethicone 30 ml 05/11/20 22:52 05/11/20 23:19 Alum-Mag Hydroxide-Simethicone [phone]/5ml Oral Liqd 30 Ml PO 30 ml Q4H PRN Administration Indigestion Aspirin 81 mg 05/10/20 10:00 05/12/20 09:37 Baby Aspirin PO 81 mg QDAY [facility] Administration Bumetanide 1 mg 05/12/20 10:00 05/13/20 05:50 Bumetanide 1 Mg/4 Ml Inj IV 1 mg BID@0600,1800 [facility] Administration Diltiazem HCl 240 mg 05/10/20 10:00 05/12/20 09:38 Cardizem Cd PO 240 mg QDAY [facility] Administration Enoxaparin Sodium 40 mg 05/10/20 22:00 05/12/20 21:18 Enoxaparin SUB-Q 40 mg QDAY@2200 [facility] Administration Protocol Ferrous Sulfate 325 mg 05/10/20 10:00 05/12/20 09:36 Feosol PO 325 mg QDAY [facility] Administration Insulin Glargine 30 units 05/10/20 10:00 12/12/20 21:24 Lantus SUB-Q 30 units BID [facility] Administration Insulin Human Regular 0 unit 05/10/20 07:30 05/13/20 08:11 Insulin Regular, Human 100 Unit/Ml 3ml Vial SUB-Q Not Given ACHS [facility] Protocol Metoprolol Tartrate 50 mg 05/10/20 02:00 05/12/20 21:19 Metoprolol PO 50 mg BID [facility] Administration Multivitamins 1 each 05/10/20 10:00 05/12/20 09:36 Theragran Tab PO 1 each QDAY [facility] Administration Nitroglycerin 0.4 mg 05/10/20 00:04 Nitrostat SL .Q5MIN PRN Chest Pain Pravastatin Sodium 80 mg 05/10/20 22:00 05/12/20 21:18 Pravachol PO 80 mg QHS [facility] Administration Tramadol HCl 25 mg 05/10/20 00:12 Ultram PO Q4H PRN Pain, Moderate (4-6)
[2020-05-13] MEDS: METOPROLOL TARTRATE 50 MG TAB PO SCH ×2 (09:28→21:16)
[2020-05-13] MEDS: ASPIRIN 81 MG TAB CHEW PO SCH (09:28)
[2020-05-13] MEDS: MULTIVITAMINS ,THERAPEUTIC TAB PO SCH (09:29)
[2020-05-13] MEDS: INSULIN GLARGINE 100 UNITS/ML SUB-Q SCH ×2 (09:30→21:21)
[2020-05-13] MEDS: dilTIAZem CD 240 MG CAP PO SCH (09:30)
[2020-05-13] MEDS: SODIUM FERRIC GLUCON/SUCRO 125 MG in SODIUM CHLORIDE 0.9% 100 ML IV SCH (09:36)
--- NOTE | 2020-05-13 09:45 | Progress Note ---
Assessment and Plan Assessment and plan: Anemia. Patient reports history of GI bleed while on Eliquis for A. fib. Check Hemoccult of stool. GI consultation pending. Follow-up CT of abdomen and pelvis. Anticoagulation on hold. Weight loss. Patient reports 70 pound recent weight loss. Permanent atrial fibrillation. Continue diltiazem/metoprolol for rate control. Acute on chronic diastolic heart failure. Continue IV Lasix and GDMT for heart failure. Cardiology consulted. History of cardiac cath in 2014 showing normal coronary arteries. Type 2 diabetes mellitus. Continue SSRI and Accu-Cheks. Tight glycemic control. Essential primary hypertension. Continue home antihypertensive medications. Morbid obesity. Patient will be counseled on weight loss and importance of a balanced diet. Obstructive sleep apnea. O2 to maintain sats greater than 92%. Hyperlipidemia. Continue Pravachol. Asthma with no evidence of acute exacerbation. 05/11/2020. CT scan reveals extensive retroperitoneal and pelvic lymphadenopathy concerning for neoplasm/metastasis. Also, enlargement of the cervix and vaginal prominence that may represent primary neoplasm. Patient also with significant weight loss and anemia. [employer] and hematology consultation. Check tumor markers of alpha-fetoprotein, CA-125, CA 199 and CEA. Hemoglobin 6.9 today. T & C and transfuse 2 units PRBCs. 05/12/2020. I discussed the case with Dr. Vázquez ([employer]) who reports exam does reveal cervical mass most likely cervical cancer. 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 Patient with left-sided pleuritic chest pain. CTA of chest ordered to rule out PE. Patient with risk factors given probable malignancy. 05/13/2020. I discussed the case with Dr. Tran (oncology) who recommends general surgery consultation for excisional mesenteric lymph node biopsy for further evaluation r/o lymphoma. Await tumor markers as noted above. CTA of chest did not show evidence of PE but revealed pulmonary nodule. History Interval history: No new issues overnight. Hospitalist Physical - Constitutional Vitals: Temp Pulse Resp BP Pulse Ox 98.5 F 96 H 20 112/65 98 05/13/20 07:36 05/13/20 09:30 05/13/20 07:36 05/13/20 09:30 05/13/20 07:36 General appearance: Present: no acute distress, obese - EENT Eyes: Present: PERRL, EOM intact ENT: hearing intact, clear oral mucosa, dentition normal - Neck Neck: Present: supple, normal ROM - Respiratory Respiratory effort: normal Respiratory: bilateral: CTA - Cardiovascular Rhythm: regular Heart Sounds: Present: S1 & S2. Absent: gallop, rub - Extremities Extremities: no ischemia, No edema, Full ROM - Abdominal General gastrointestinal: soft, non-tender, non-distended, normal bowel sounds - Integumentary Integumentary: Present: clear, warm, dry - Neurologic Neurologic: CNII-XII intact, moves all extremities HEART Score - HEART Score Troponin: Troponin T < 0.010 ng/mL (0.00-0.029) 05/09/20 20:12 Results - Labs CBC & Chem 7: 05/13/20 05:59 05/13/20 05:59 Labs: Laboratory Last Values WBC 8.2 K/mm3 (4.5-11.0) 05/13/20 05:59 RBC 3.83 M/mm3 (3.65-5.03) 05/13/20 05:59 Hgb 8.2 gm/dl (10.1-14.3) L 05/13/20 05:59 Hct 26.4 % (30.3-42.9) L 05/13/20 05:59 MCV 69 fl (79-97) L 05/13/20 05:59 MCH 22 pg (28-32) L 05/13/20 05:59 MCHC 31 % (30-34) 05/13/20 05:59 RDW 23.8 % (13.2-15.2) H 05/13/20 05:59 Plt Count 156 K/mm3 (140-440) 05/13/20 05:59 Lymph % (Auto) 9.7 % (13.4-35.0) L 05/13/20 05:59 [place] % (Auto) 11.9 % (0.0-7.3) H 05/13/20 05:59 Eos % (Auto) 1.7 % (0.0-4.3) 05/13/20 05:59 Baso % (Auto) 0.7 % (0.0-1.8) 05/13/20 05:59 Lymph # (Auto) 0.8 K/mm3 (1.2-5.4) L 05/13/20 05:59 [place] # (Auto) 1.0 K/mm3 (0.0-0.8) H 05/13/20 05:59 Eos # (Auto) 0.1 K/mm3 (0.0-0.4) 05/13/20 05:59 Baso # (Auto) 0.1 K/mm3 (0.0-0.1) 05/13/20 05:59 Seg Neutrophils % 76.0 % (40.0-70.0) H 05/13/20 05:59 Seg Neutrophils # 6.3 K/mm3 (1.8-7.7) 05/13/20 05:59 PT 16.5 Sec. (12.2-14.9) H 05/09/20 20:12 INR 1.33 (0.87-1.13) H 05/09/20 20:12 APTT 31.0 Sec. (24.2-36.6) 05/09/20 20:12 D-Dimer 643.75 ng/mlDDU (0-234) H 05/09/20 20:12 Sodium 136 mmol/L (137-145) L 05/13/20 05:59 Potassium 3.9 mmol/L (3.6-5.0) 05/13/20 05:59 Chloride 99.3 mmol/L (98-107) 05/13/20 05:59 Carbon Dioxide 26 mmol/L (22-30) 05/13/20 05:59 Anion Gap 15 mmol/L 05/13/20 05:59 BUN 21 mg/dL (7-17) H 05/13/20 05:59 Creatinine 0.8 mg/dL (0.6-1.2) 05/13/20 05:59 Estimated GFR > 60 ml/min 05/13/20 05:59 BUN/Creatinine Ratio 26 % 05/13/20 05:59 Glucose 161 mg/dL (65-100) H 05/13/20 05:59 POC Glucose 143 mg/dL (70-105) H 05/13/20 07:34 Hemoglobin A1c 8.6 % (4-6) H 05/09/20 20:12 Calcium 8.8 mg/dL (8.4-10.2) 05/13/20 05:59 Magnesium 1.60 mg/dL (1.7-2.3) L 05/10/20 Unknown Iron 19 ug/dL (37-170) L 05/10/20 Unknown TIBC 362 mcg/dL (250-450) 05/10/20 Unknown Total Bilirubin 0.70 mg/dL (0.1-1.2) 05/09/20 20:12 AST 19 units/L (5-40) 05/09/20 20:12 ALT 8 units/L (7-56) 05/09/20 20:12 Alkaline Phosphatase 133 units/L (35-129) H 05/09/20 20:12 Lactate Dehydrogenase 374 units/L (91-180) H 05/12/20 07:09 Troponin T < 0.010 ng/mL (0.00-0.029) 05/09/20 20:12 NT-Pro-B Natriuret Pep 1504 pg/mL (0-450) H 05/09/20 20:12 Total Protein 8.2 g/dL (6.3-8.2) 05/09/20 20:12 Albumin 3.6 g/dL (3.9-5) L 05/09/20 20:12 Albumin/Globulin Ratio 0.8 % 05/09/20 20:12 HCG, Qual Negative (Negative) 05/09/20 20:12 Blood Type A NEGATIVE 05/11/20 15: Antibody Screen Positive 05/11/20 15:20 Antibody Identification Anti-s 05/11/20 15:20 Antigen Identification Cancelled 05/11/20 15:20 Crossmatch See Detail 05/11/20 15:20 - Diagnostic Impressions Diagnostic Impressions: Echocardiogram 05/10/20 00:10 Transthoracic Echocardiogram Indication: Dyspnea BP: 114/67 HR: 100 Conclusions *The left ventricular chamber size is normal. *Global left ventricular wall motion and contractility are within normal limits. *Global left ventricular systolic function is normal. *The estimated ejection fraction is 55-60%. *Abnormal left ventricular diastolic filling is observed, consistent with impaired relaxation. *The left atrium is mildly dilated. *Mild mitral leaflet calcification is visualized. *Mild mitral leaflet calcification is visualized. *There is mild mitral regurgitation. MV leaflet movement is normal. *The right ventricular systolic pressure is calculated at 42 mmHg. Findings Left Ventricle: The left ventricular chamber size is normal. Global left ventricular wall motion and contractility are within normal limits. Global left ventricular systolic function is normal. The estimated ejection fraction is 55-60%. Abnormal left ventricular diastolic filling is observed, consistent with impaired relaxation. Left Atrium: The left atrium is mildly dilated. Right Ventricle: The right ventricle is not well visualized. Right Atrium: The right atrium is not well visualized. The interatrial septum bowed toward the left. Interatrial septal aneurysm is noted,saline contrast is non diagnostic for evalautuion of shunt. Aortic Valve: The aortic valve leaflets are mildly thickened. Mitral Valve: Mild mitral leaflet calcification is visualized. There is mild mitral regurgitation. MV leaflet movement is normal. The mean gradient across the mitral valve is 6 mmHg. The peak gradient across the mitral valve is 15 mmHg. Tricuspid Valve: The tricuspid valve leaflets are normal. There is mild tricuspid regurgitation. The right ventricular systolic pressure is calculated at 42 mmHg. Pulmonic Valve: The pulmonic valve appears normal. There is trace pulmonic regurgitation. Pericardium: There is no pericardial effusion. Aorta: The aorta appears normal. There is mild dilatation of the ascending aorta. Venous: The inferior vena cava is dilated. There is less than 50% respiratory change in the inferior vena cava dimension. Contrast: Intravenous contrast was used to enhance endocardial border definition. Intravenous agitated saline contrast was used to assess intracardiac shunting. Measurements Chambers 2D Name Value Normal Range IVSd (2D) 1.09 cm (0.6 - 1.1) LVPWd (2D) 1.07 cm (0.6 - 1.1) LVIDd (2D) 4.71 cm (3.7 - 5.6) LVIDs (2D) 3.65 cm (2 - 3.8) LV FS (2D) 22.48 % - Ao root diameter (2D) 2.96 cm (2 - 3.7) Volumes/Mass Name Value Normal Range LA ESV SP 4CH (A/L) 92.8 ml - LA ESV SP 2CH (A/L) 87.83 ml - LA ESV BP (A/L) 92.27 ml - LA ESV BP (A/L) index 37.81 ml/m2 - LA ESV SP 4CH (MOD) 89.22 ml - LA ESV SP 2CH (MOD) 86.16 ml - LA ESV BP (MOD) 89.44 ml - LA ESV BP (MOD) index 36.65 ml/m2 - Diastolic/Systolic Function Name Value Normal Range MV E-wave Vmax 1.29 m/sec - MV deceleration time 243.86 msec - MV A-wave Vmax 0.77 m/sec - MV E:A ratio 1.67 ratio - Aortic Valve Name Value Normal Range AV Vmax 1.73 m/sec - AV VTI 35.33 cm - AV peak gradient 11.98 mmHg - AV mean gradient 6.81 mmHg - LVOT diameter 2.18 cm - LVOT Vmax 1.22 m/sec - LVOT VTI 25.64 cm - LVOT peak gradient 5.97 mmHg - LVOT mean gradient 3.61 mmHg - SV LVOT 95.28 ml - ARUN (continuity Vmax) 2.62 cm2 - ARUN (continuity VTI) 2.7 cm2 - Ascending Ao 3.53 cm - Mitral Valve Name Value Normal Range MV Vmax 1.94 m/sec - MV VTI 38.66 cm - MV peak gradient 15 mmHg - MV mean gradient 6 mmHg - MR Vmax 4.63 m/sec - MVA (continuity VTI) 2.46 cm2 - Tricuspid Valve Name Value Normal Range TR Vmax 2.67 m/sec - TR peak gradient 28.41 mmHg - RAP 15 mmHg - RVSP 42 mmHg - IVC diameter 2.54 cm (1.2 - 2.3) Pulmonic Valve/Qp:Qs Name Value Normal Range PV Vmax 1.27 m/sec - PV peak gradient 6.49 mmHg - TX end-diastolic Vmax 1.6 m/sec - PV acceleration time 76.12 msec - Garber/IV: Voiding Method Toilet IV Catheter Type [Left Forearm INT / Saline Lock ] IV Catheter Type [Right INT / Saline Lock Antecubital] Active Medications - Current Medications Current Medications: Generic Name Dose Route Start Last Admin Trade Name Freq PRN Reason Stop Dose Admin Acetaminophen 650 mg 05/10/20 15:51 05/12/20 23:52 Acetaminophen 325 Mg Tab PO 650 mg Q4H PRN Administration Pain, Mild (1-3) Al Hydrox/Mg Hydrox/Simethicone 30 ml 05/11/20 22:52 05/11/20 23:19 Alum-Mag Hydroxide-Simethicone [phone]/5ml Oral Liqd 30 Ml PO 30 ml Q4H PRN Administration Indigestion Aspirin 81 mg 05/10/20 10:00 05/13/20 09:28 Baby Aspirin PO 81 mg QDAY [facility] Administration Bumetanide 1 mg 05/12/20 10:00 05/13/20 05:50 Bumetanide 1 Mg/4 Ml Inj IV 1 mg BID@0600,1800 [facility] Administration Diltiazem HCl 240 mg 05/10/20 10:00 05/13/20 09:30 Cardizem Cd PO 240 mg QDAY [facility] Administration Enoxaparin Sodium 40 mg 05/10/20 22:00 05/12/20 21:18 Enoxaparin SUB-Q 40 mg QDAY@2200 [facility] Administration Protocol Ferric Sodium Gluconate 110 mls @ 100 mls/hr 05/13/20 10:00 05/13/20 09:36 Complex 125 mg/ Sodium IV 05/16/20 09:59 100 mls/hr Chloride QDAY [facility] Administration Insulin Glargine 30 units 05/10/20 10:00 05/13/20 09:30 Lantus SUB-Q 30 units BID [facility] Administration Insulin Human Regular 0 unit 05/10/20 07:30 05/13/20 08:11 Insulin Regular, Human 100 Unit/Ml 3ml Vial SUB-Q Not Given ACHS [facility] Protocol Metoprolol Tartrate 50 mg 05/10/20 02:00 05/13/20 09:28 Metoprolol PO 50 mg BID [facility] Administration Multivitamins 1 each 05/10/20 10:00 05/13/20 09:29 Theragran Tab PO 1 each QDAY [facility] Administration Nitroglycerin 0.4 mg 05/10/20 00:04 Nitrostat SL .Q5MIN PRN Chest Pain Pravastatin Sodium 80 mg 05/10/20 22:00 05/12/20 21:18 Pravachol PO 80 mg QHS [facility] Administration Tramadol HCl 25 mg 05/10/20 00:12 Ultram PO Q4H PRN Pain, Moderate (4-6) Nutrition/Malnutrition Assess - Dietary Evaluation Nutrition/Malnutrition Findings: Nutrition Notes Start: 05/10/20 12:28 Freq: Status: Active Protocol: Document 05/10/20 12:29 EN (Rec: 05/10/20 12:37 EN [id number]) Co-Sign 05/10/20 12:29 LM Nutrition Notes Need for Assessment generated from: MD Order,Education Initial or Follow up Brief Note Current Diagnosis Diabetes,Hypertension,Heart Failure,Hyperlipidemia Other Pertinent Diagnosis Anemia, Gall stones, Sleep apnea Current Diet Cardiac [place] Body Weight (kg) 0 Subjective/Other Information MD consult for diet education. Pt diagnosed with new onset CHF. 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 Pt consuming 100% of meals. Pt accepted diet education for both CHF and DM. Pt has no further questions. #1 Nutrition Diagnosis Food and nutrition-related knowledge deficit Etiology no previous CHF and DM education As Evidenced by Signs and Symptoms pt expressed desire for education and verbalized questions Nutrition Intervention Change Diet Order: Cardiac/Consistent CHO Teaching Recipient Patient Learning Readiness Good Teaching Methods Discussion,Handout Response to Teaching Verbalize understanding Education Handouts Provided CHF and Consitent CHO handouts Barriers to Learning No Barriers RD phone number provided Yes Patient aware of follow up options Yes Anticipated Discharge Needs: Cardiac/Consistent CHO diet Revisit per MD consult or patient Sign Off request:
--- NOTE | 2020-05-13 10:04 | Progress Note ---
Assessment and Plan Acute on chronic Heart failure with a preserved ejection fraction echo this presentation - normal LVEF 55%. Left sided pleuritic chest pain CTA chest this admission showed no PE Permanent atrial fibrillation rate controlled previously considered no longer a candidate for oral anticoagulation due to severe anemia and vaginal bleed. Chronic shortness of breath cardiac cath in 2014 showing normal coronary arteries. Abdominal pain CT scan suspicious for malignancy Type 2 diabetes mellitus Essential primary hypertension Morbid obesity Obstructive sleep apnea Chronic Anemia Hx of COPD Recommendations: Continue diuresis with IV Bumex Patient is still volume overloaded and is not ready for discharge yet Check BMP in am Subjective Date of service: 05/13/20 Principal diagnosis: Shortness of breath Interval history: Patient states that her urine output has improved yesterday. The left sided chest pain has resolved. Objective Vital Signs Temp Pulse Resp BP Pulse Ox 05/13/20 09:30 96 H 112/65 05/13/20 09:28 96 H 112/65 05/13/20 07:36 98.5 F 94 H 20 118/69 98 05/13/20 03:29 83 16 130/70 97 05/12/20 23:55 98.4 F 93 H 20 137/73 97 05/12/20 23:40 18 96 05/12/20 22:00 91 H 05/12/20 21:19 89 148/76 05/12/20 19:42 98.2 F 89 16 148/76 96 05/12/20 18:40 98.2 F 87 21 145/70 100 05/12/20 18:00 98 F 88 19 132/86 100 05/12/20 17:30 98.1 F 88 19 146/70 100 05/12/20 17:00 98.0 F 82 20 138/64 100 05/12/20 16:30 98.0 F 78 20 117/73 100 05/12/20 16:00 98.1 F 87 21 117/59 100 05/12/20 15:45 98.0 F 88 19 120/67 100 05/12/20 13:25 98.2 F 81 18 96/48 99 05/12/20 13:00 98.0 F 72 18 99/57 98 05/12/20 12:30 98.0 F 88 19 99/59 99 05/12/20 12:00 98.3 F 78 18 100/55 99 05/12/20 11:45 98.0 F 63 19 97/57 99 05/12/20 11:24 98.0 F 75 18 100/50 98 05/12/20 11:10 98.2 F 71 19 95/55 96 - Physical Examination General: No Apparent Distress, Other (obese) HEENT: Positive: PERRL Neck: Positive: trachea midline Cardiac: Positive: Reg Rate and Rhythm Lungs: Positive: Decreased Breath Sounds Neuro: Positive: Grossly Intact Extremities: Absent: edema - Labs and Meds CBC 05/13/20 Range/Units 05:59 WBC 8.2 (4.5-11.0) K/mm3 RBC 3.83 (3.65-5.03) M/mm3 Hgb 8.2 L (10.1-14.3) gm/dl Hct 26.4 L (30.3-42.9) % Plt Count 156 (140-440) K/mm3 Lymph # (Auto) 0.8 L (1.2-5.4) K/mm3 [place] # (Auto) 1.0 H (0.0-0.8) K/mm3 Eos # (Auto) 0.1 (0.0-0.4) K/mm3 Baso # (Auto) 0.1 (0.0-0.1) K/mm3 Comprehensive Metabolic Panel 05/13/20 Range/Units 05:59 Sodium 136 L (137-145) mmol/L Potassium 3.9 (3.6-5.0) mmol/L Chloride 99.3 (98-107) mmol/L Carbon Dioxide 26 (22-30) mmol/L BUN 21 H (7-17) mg/dL Creatinine 0.8 (0.6-1.2) mg/dL Glucose 161 H (65-100) mg/dL Calcium 8.8 (8.4-10.2) mg/dL
--- NOTE | 2020-05-13 13:11 | Consultation ---
History of Present Illness Consult date: 05/13/20 Reason for consult: other (lymphadenopathy) - History of present illness History of present illness: 49 year old female admitted to ED with SOB and generalized edema. She has a complicated medical hx and had a generalized work up for significant anemia. CT scan abdomen and pelvis showed enlarged lymph nodes in the retroperitoneum and pelvis. Gynecology was consulted and is concerned for a possible cervical malignancy. She denies any active bleeding that she can describe. General surgery was consulted for possible LN biopsy. Past History Past Medical History: atrial fib, anemia, diabetes, hypertension, hyperlipidemia, other (gall stone) Past Surgical History: tonsillectomy. denies: valve replacement, total hip replacement Social history: denies: IV drug use Family history: CAD, diabetes, hypertension, other (hyperlidemia) Medications and Allergies Allergies Allergy/AdvReac Type Severity Reaction Status Date / Time cephalexin monohydrate Allergy Nausea Verified 05/09/20 18:39 [From Keflex] ciprofloxacin Allergy Diarrhea Verified 05/09/20 18:39 lisinopril Allergy Unknown Verified 05/09/20 18:39 Penicillins Allergy Swelling Verified 05/09/20 18:39 metformin AdvReac Diarrhea Verified 05/09/20 18:39 Home Medications Medication Instructions Recorded Confirmed Last Taken Type Simvastatin [Zocor TAB] 40 mg PO QHS 06/02/13 05/12/20 05/12/20 10:33 History dilTIAZem CD [Cardizem CD] 240 mg PO QDAY #30 capsule 06/05/13 05/12/20 05/12/20 10:33 Rx Apixaban [Eliquis] 5 mg PO BID 11/12/16 05/12/20 06/23/19 History Digoxin 250 mcg PO Q24HR #30 tablet 11/13/16 05/12/20 06/23/19 Rx Metoprolol [Lopressor TAB] 50 mg PO BID 06/17/19 05/12/20 05/12/20 10:34 History Benzonatate [Tessalon Perles] 100 mg PO Q8HR #30 capsule 06/21/19 05/12/20 06/23/19 Rx Empagliflozin [Jardiance] 10 mg PO DAILY #30 tablet 06/21/19 05/12/20 Unknown Rx Insulin Glargine [Lantus VIAL] 70 units SUB-Q BID #5 vial 06/21/19 05/12/20 05/12/20 10:34 Rx Lispro Insulin [HumaLOG] 45 unit SUB-Q TIDAC #5 vial 06/21/19 05/12/20 05/12/20 10:34 Rx Pantoprazole [Protonix TAB] 40 mg PO QDAY #30 tablet 06/21/19 05/12/20 06/23/19 Rx Sennosides/Docusate [Senokot S] 2 tab PO Q12H PRN #30 tablet 06/21/19 05/12/20 05/12/20 10:33 Rx polyethylene glycoL 3350 [Miralax 17 gm PO QDAY PRN #30 powd.pack 06/21/19 05/12/20 Unknown Rx 3350] Albuterol Mdi (or & Nicu Only) 2 puff IH QID PRN #8.5 gram 06/26/19 05/12/20 Unknown Rx [ProAir HFA Inhaler] Azithromycin [Zithromax TAB] 500 mg PO QDAY #4 tablet 06/26/19 05/12/20 Unknown Rx Prednisone [predniSONE 10 mg 10 mg PO .TAPER #1 tab.ds.pk 06/26/19 05/12/20 Unknown Rx (6-Day Pack, 21 Tabs)] Clindamycin [Clindamycin CAP] 300 mg PO Q8H #21 cap 08/16/19 05/12/20 Unknown Rx Naproxen 500 mg PO Q12H PRN #12 tablet 08/16/19 05/12/20 Unknown Rx Active Meds: Active Medications Acetaminophen (Acetaminophen 325 Mg Tab) 650 mg PO Q4H PRN PRN Reason: Pain, Mild (1-3) Last Admin: 05/12/20 23:52 Dose: 650 mg Documented by: Al Hydrox/Mg Hydrox/Simethicone (Alum-Mag Hydroxide-Simethicone [id number]/5ml Oral Liqd 30 Ml) 30 ml PO Q4H PRN PRN Reason: Indigestion Last Admin: 05/11/20 23:19 Dose: 30 ml Documented by: Aspirin (Baby Aspirin) 81 mg PO QDAY KALI Last Admin: 05/13/20 09:28 Dose: 81 mg Documented by: Bumetanide (Bumetanide 1 Mg/4 Ml Inj) 1 mg IV BID@0600,1800 [facility] Last Admin: 05/13/20 05:50 Dose: 1 mg Documented by: Diltiazem HCl (Cardizem Cd) 240 mg PO QDAY [facility] Last Admin: 05/13/20 09:30 Dose: 240 mg Documented by: Enoxaparin Sodium (Enoxaparin) 40 mg SUB-Q QDAY@2200 [facility]; Protocol Last Admin: 05/12/20 21:18 Dose: 40 mg Documented by: Ferric Sodium Gluconate Complex 125 mg/ Sodium Chloride 110 mls @ 100 mls/hr IV QDAY [facility] Stop: 05/16/20 09:59 Last Admin: 05/13/20 09:36 Dose: 100 mls/hr Documented by: Insulin Glargine (Lantus) 30 units SUB-Q BID [facility] Last Admin: 05/13/20 09:30 Dose: 30 units Documented by: Insulin Human Regular (Insulin Regular, Human 100 Unit/Ml 3ml Vial) 0 unit SUB- Q ACHS [facility]; Protocol Last Admin: 05/13/20 12:15 Dose: 1 unit Documented by: Metoprolol Tartrate (Metoprolol) 50 mg PO BID [facility] Last Admin: 05/13/20 09:28 Dose: 50 mg Documented by: Multivitamins (Theragran Tab) 1 each PO QDAY [facility] Last Admin: 05/13/20 09:29 Dose: 1 each Documented by: Nitroglycerin (Nitrostat) 0.4 mg SL .Q5MIN PRN PRN Reason: Chest Pain Pravastatin Sodium (Pravachol) 80 mg PO QHS [facility] Last Admin: 05/12/20 21:18 Dose: 80 mg Documented by: Tramadol HCl (Ultram) 25 mg PO Q4H PRN PRN Reason: Pain, Moderate (4-6) Review of Systems - Constitutional fatigue - Cardiovascular no chest pain - Respiratory dyspnea on exertion, no cough - Gastrointestinal no abdominal pain Exam Vital Signs Temp Pulse Resp BP Pulse Ox 97.7 F 89 20 137/63 100 05/09/20 19:20 05/09/20 19:20 05/09/20 19:20 05/09/20 19:20 05/09/20 19:20 - General physical appearance Positive: well developed, no pain, obese - Respiratory Positive: normal expansion, normal respiratory effort - Extremities Extremities: no ischemia - Abdomen Abdomen: Present: soft, other (obese). Absent: tender - Neurologic Neurologic: alert and oriented to time, place and person, CN II-XII intact - Psychiatric Psychiatric: appropriate mood/affect Results - Labs 05/13/20 05:59 05/13/20 05:59 Abnormal lab results 05/11/20 05/12/20 05/12/20 Range/Units 15:20 17:24 21:18 Hgb (10.1-14.3) gm/dl Hct (30.3-42.9) % MCV (79-97) fl MCH (28-32) pg RDW (13.2-15.2) % Lymph % (Auto) (13.4-35.0) % [place] % (Auto) (0.0-7.3) % Lymph # (Auto) (1.2-5.4) K/mm3 [place] # (Auto) (0.0-0.8) K/mm3 Seg Neutrophils % (40.0-70.0) % Sodium (137-145) mmol/L BUN (7-17) mg/dL Glucose (65-100) mg/dL POC Glucose 179 H 220 H (70-105) mg/dL Crossmatch See Detail 05/13/20 05/13/20 05/13/20 Range/Units 05:59 05:59 07:34 Hgb 8.2 L (10.1-14.3) gm/dl Hct 26.4 L (30.3-42.9) % MCV 69 L (79-97) fl MCH 22 L (28-32) pg RDW 23.8 H (13.2-15.2) % Lymph % (Auto) 9.7 L (13.4-35.0) % [place] % (Auto) 11.9 H (0.0-7.3) % Lymph # (Auto) 0.8 L (1.2-5.4) K/mm3 [place] # (Auto) 1.0 H (0.0-0.8) K/mm3 Seg Neutrophils % 76.0 H (40.0-70.0) % Sodium 136 L (137-145) mmol/L BUN 21 H (7-17) mg/dL Glucose 161 H (65-100) mg/dL POC Glucose 143 H (70-105) mg/dL Crossmatch 05/13/20 Range/Units 11:47 Hgb (10.1-14.3) gm/dl Hct (30.3-42.9) % MCV (79-97) fl MCH (28-32) pg RDW (13.2-15.2) % Lymph % (Auto) (13.4-35.0) % [place] % (Auto) (0.0-7.3) % Lymph # (Auto) (1.2-5.4) K/mm3 [place] # (Auto) (0.0-0.8) K/mm3 Seg Neutrophils % (40.0-70.0) % Sodium (137-145) mmol/L BUN (7-17) mg/dL Glucose (65-100) mg/dL POC Glucose 174 H (70-105) mg/dL Crossmatch Diabetes panel 05/13/20 Range/Units 05:59 Sodium 136 L (137-145) mmol/L Potassium 3.9 (3.6-5.0) mmol/L Chloride 99.3 (98-107) mmol/L Carbon Dioxide 26 (22-30) mmol/L BUN 21 H (7-17) mg/dL Creatinine 0.8 (0.6-1.2) mg/dL Glucose 161 H (65-100) mg/dL Calcium 8.8 (8.4-10.2) mg/dL Calcium panel 05/13/20 Range/Units 05:59 Calcium 8.8 (8.4-10.2) mg/dL Pituitary panel 05/13/20 Range/Units 05:59 Sodium 136 L (137-145) mmol/L Potassium 3.9 (3.6-5.0) mmol/L Chloride 99.3 (98-107) mmol/L Carbon Dioxide 26 (22-30) mmol/L BUN 21 H (7-17) mg/dL Creatinine 0.8 (0.6-1.2) mg/dL Glucose 161 H (65-100) mg/dL Calcium 8.8 (8.4-10.2) mg/dL Adrenal panel 05/13/20 Range/Units 05:59 Sodium 136 L (137-145) mmol/L Potassium 3.9 (3.6-5.0) mmol/L Chloride 99.3 (98-107) mmol/L Carbon Dioxide 26 (22-30) mmol/L BUN 21 H (7-17) mg/dL Creatinine 0.8 (0.6-1.2) mg/dL Glucose 161 H (65-100) mg/dL Calcium 8.8 (8.4-10.2) mg/dL - Imaging CT scan - abdomen: report reviewed, image reviewed CT scan - pelvis: report reviewed, image reviewed Assessment and Plan 49 year old female with lymphadenopathy of the retroperitoneum and pelvis likely related to possible cervical malignancy. There are no pattern hanger oncologist or surgical oncologist at this facility and it is recommended, if she remains stable, she follow up as out patient with the surgeon Dr. Vázquez recommended. No general surgery intervention indicated at this time. will sign off.
--- NOTE | 2020-05-13 18:56 | Hem/Onc Progress Note ---
Subjective Interval history: oncology data review 49yo obese woman (330 lbs) with impressive lymphadenopathy has been eval for LA during te past few months-->hosp at a different hospital found to have severe anemia-->stopped eliquis (was prescribed for atrial fib), recommended LN biopsy wasnt able to get back into oncologist of have LN biopsy now presents with abd distension, night sweats since admission found to have severe anemia-->RBC transfusions done found to have impressive retroperitoneal and pelvic LA and HSM and pl effusion cervix enlargement noted on CT scan CHIROPRA[employer]IC PRACTICE MANAGER consult rec noted-->CHIROPRACTIC PRACTICE MANAGER ONC referral GEN SURGERY consult noted: not planning surgery because looks like CHIROPRACTIC PRACTICE MANAGER malignancy IMPRESSION: presumed malignancy, lymphoma vs. carcinoma (she could have both) her presentation and pattern are concerning for lymphoma retroperitoneal LN biopsy may be worthwhile, when and where possible, instead of or in addition to a CHIROPRACTIC PRACTICE MANAGER ONC surgery CEA pending--if it's very high that will make this more convicing for carcinoma>>lymphoma RECOMMEND: If she leaves without a biopsy, ensure she has a solid f/u plan with both in- person heme/onc and CHIROPRACTIC PRACTICE MANAGER ONC Objective - Constitutional Vitals: Last Vital Signs Temp 98.3 F 05/13/20 16:15 Pulse 89 05/13/20 17:00 Resp 20 05/13/20 16:15 BP 105/50 05/13/20 16:15 Pulse Ox 98 05/13/20 16:15 - Labs Lab Results: Laboratory Results - last 24 hr 05/12/20 05/13/20 05/13/20 21:18 05:59 05:59 WBC 8.2 RBC 3.83 Hgb 8.2 L Hct 26.4 L MCV 69 L MCH 22 L MCHC 31 RDW 23.8 H Plt Count 156 Lymph % (Auto) 9.7 L [place] % (Auto) 11.9 H Eos % (Auto) 1.7 Baso % (Auto) 0.7 Lymph # (Auto) 0.8 L [place] # (Auto) 1.0 H Eos # (Auto) 0.1 Baso # (Auto) 0.1 Seg Neutrophils % 76.0 H Seg Neutrophils # 6.3 Sodium 136 L Potassium 3.9 Chloride 99.3 Carbon Dioxide 26 Anion Gap 15 BUN 21 H Creatinine 0.8 Estimated GFR > 60 BUN/Creatinine Ratio 26 Glucose 161 H POC Glucose 220 H Calcium 8.8 12/13/20 12/13/20 12/13/20 07:34 11:47 16:12 WBC RBC Hgb Hct MCV MCH MCHC RDW Plt Count Lymph % (Auto) [place] % (Auto) Eos % (Auto) Baso % (Auto) Lymph # (Auto) [place] # (Auto) Eos # (Auto) Baso # (Auto) Seg Neutrophils % Seg Neutrophils # Sodium Potassium Chloride Carbon Dioxide Anion Gap BUN Creatinine Estimated GFR BUN/Creatinine Ratio Glucose POC Glucose 143 H 174 H 194 H Calcium Medications & Allergies - Medications Allergies/Adverse Reactions: Allergies cephalexin monohydrate [From Keflex] Allergy (Verified 05/09/20 18:39) Nausea ciprofloxacin Allergy (Verified 05/09/20 18:39) Diarrhea lisinopril Allergy (Verified 05/09/20 18:39) Unknown Cough Penicillins Allergy (Verified 05/09/20 18:39) Swelling metformin Adverse Reaction (Verified 05/09/20 18:39) Diarrhea Home Medications: Home Medications Medication Instructions Recorded Confirmed Last Taken Type Simvastatin [Zocor TAB] 40 mg PO QHS 06/02/13 05/12/20 05/12/20 10:33 History dilTIAZem CD [Cardizem CD] 240 mg PO QDAY #30 capsule 06/05/13 05/12/20 05/12/20 10:33 Rx Apixaban [Eliquis] 5 mg PO BID 11/12/16 05/12/20 06/23/19 History Digoxin 250 mcg PO Q24HR #30 tablet 11/13/16 05/12/20 06/23/19 Rx Metoprolol [Lopressor TAB] 50 mg PO BID 06/17/19 05/12/20 05/12/20 10:34 History Benzonatate [Tessalon Perles] 100 mg PO Q8HR #30 capsule 06/21/19 05/12/20 06/23/19 Rx Empagliflozin [Jardiance] 10 mg PO DAILY #30 tablet 06/21/19 05/12/20 Unknown Rx Insulin Glargine [Lantus VIAL] 70 units SUB-Q BID #5 vial 06/21/19 05/12/20 05/12/20 10:34 Rx Lispro Insulin [HumaLOG] 45 unit SUB-Q TIDAC #5 vial 01/05/12/20 05/12/20 10:34 Rx Pantoprazole [Protonix TAB] 40 mg PO QDAY #30 tablet 06/21/19 05/12/20 06/23/19 Rx Sennosides/Docusate [Senokot S] 2 tab PO Q12H PRN #30 tablet 06/21/19 05/12/20 05/12/20 10:33 Rx polyethylene glycoL 3350 [Miralax 17 gm PO QDAY PRN #30 powd.pack 06/21/19 05/12/20 Unknown Rx 3350] Albuterol Mdi (or & Nicu Only) 2 puff IH QID PRN #8.5 gram 06/26/19 05/12/20 Unknown Rx [ProAir HFA Inhaler] Azithromycin [Zithromax TAB] 500 mg PO QDAY #4 tablet 06/26/19 05/12/20 Unknown Rx Prednisone [predniSONE 10 mg 10 mg PO .TAPER #1 tab.ds.pk 06/26/19 05/12/20 Unknown Rx (6-Day Pack, 21 Tabs)] Clindamycin [Clindamycin CAP] 300 mg PO Q8H #21 cap 08/16/19 05/12/20 Unknown Rx Naproxen 500 mg PO Q12H PRN #12 tablet 08/16/19 05/12/20 Unknown Rx Active Medications: Generic Name Dose Route Start Last Admin Trade Name Freq PRN Reason Stop Dose Admin Acetaminophen 650 mg 05/10/20 15:51 05/12/20 23:52 Acetaminophen 325 Mg Tab PO 650 mg Q4H PRN Administration Pain, Mild (1-3) Al Hydrox/Mg Hydrox/Simethicone 30 ml 05/11/20 22:52 05/11/20 23:19 Alum-Mag Hydroxide-Simethicone [id number]/5ml Oral Liqd 30 Ml PO 30 ml Q4H PRN Administration Indigestion Aspirin 81 mg 05/10/20 10:00 05/13/20 09:28 Baby Aspirin PO 81 mg QDAY KALI Administration Bumetanide 1 mg 05/12/20 10:00 05/13/20 17:17 Bumetanide 1 Mg/4 Ml Inj IV 1 mg BID@0600,1800 KALI Administration Diltiazem HCl 240 mg 05/10/20 10:00 05/13/20 09:30 Cardizem Cd PO 240 mg QDAY KALI Administration Enoxaparin Sodium 40 mg 05/10/20 22:00 05/12/20 21:18 Enoxaparin SUB-Q 40 mg QDAY@2200 KALI Administration Protocol Ferric Sodium Gluconate 110 mls @ 100 mls/hr 05/13/20 10:00 05/13/20 09:36 Complex 125 mg/ Sodium IV 05/16/20 09:59 100 mls/hr Chloride QDAY KALI Administration Insulin Glargine 30 units 05/10/20 10:00 05/13/20 09:30 Lantus SUB-Q 30 units BID KALI Administration Insulin Human Regular 0 unit 05/10/20 07:30 05/13/20 17:00 Insulin Regular, Human 100 Unit/Ml 3ml Vial SUB-Q 1 unit ACHS KALI Administration Protocol Metoprolol Tartrate 50 mg 05/10/20 02:00 05/13/20 09:28 Metoprolol PO 50 mg BID KALI Administration Multivitamins 1 each 05/10/20 10:00 05/13/20 09:29 Theragran Tab PO 1 each QDAY KALI Administration Nitroglycerin 0.4 mg 05/10/20 00:04 Nitrostat SL .Q5MIN PRN Chest Pain Pravastatin Sodium 80 mg 05/10/20 22:00 05/12/20 21:18 Pravachol PO 80 mg QHS KALI Administration Tramadol HCl 25 mg 05/10/20 00:12 Ultram PO Q4H PRN Pain, Moderate (4-6)
[2020-05-13] MEDS: ENOXAPARIN 40 MG/0.4 ML INJ SUB-Q SCH (21:15)
[2020-05-13] MEDS: PRAVASTATIN 80 MG TAB PO SCH (21:15)
[2020-05-13] MEDS: ACETAMINOPHEN 325 MG TAB PO PRN (21:20)
[2020-05-14] MEDS: BUMETANIDE 1 MG/4 ML INJ IV SCH ×2 (05:17→18:20)
[2020-05-14 05:42] LABS: Basophils # (Auto) 0.1 K/mm3 (0.0-0.1); Basophils % (Auto) 0.9 % (0.0-1.8); Eosinophils # (Auto) 0.2 K/mm3 (0.0-0.4); Eosinophils % (Auto) 2.3 % (0.0-4.3); Hematocrit 25.5 % (30.3-42.9); Hemoglobin 7.9 gm/dl (10.1-14.3); Lymphocytes # (Auto) 0.9 K/mm3 (1.2-5.4); Lymphocytes % (Auto) 13.4 % (13.4-35.0); Mean Corpuscular HGB Conc 31 % (30-34); Monocytes # (Auto) 0.8 K/mm3 (0.0-0.8); Platelet Count 147 K/mm3 (140-440); Red Blood Count 3.71 M/mm3 (3.65-5.03)
[2020-05-14 05:51] LABS: Mean Corpuscular Volume 69 fl (79-97); Red Cell Distribution Width 23.8 % (13.2-15.2)
[2020-05-14 06:00] LABS: Blood Urea Nitrogen 19 mg/dL (7-17); Calcium 8.5 mg/dL (8.4-10.2); Hemolysis Index 0
[2020-05-14 06:22] LABS: BUN/Creatinine Ratio 32
[2020-05-14] MEDS: INSULIN REGULAR, HUMAN 100 UNIT/ML 3ML VIAL SUB-Q SCH ×3 (08:22→17:04)
--- NOTE | 2020-05-14 09:08 | Progress Note ---
Assessment and Plan Assessment and plan: Anemia. Patient reports history of GI bleed while on Eliquis for A. fib. Check Hemoccult of stool. GI consultation pending. Follow-up CT of abdomen and pelvis. Anticoagulation on hold. Weight loss. Patient reports 70 pound recent weight loss. Permanent atrial fibrillation. Continue diltiazem/metoprolol for rate control. Acute on chronic diastolic heart failure. Continue IV Lasix and GDMT for heart failure. Cardiology consulted. History of cardiac cath in 2014 showing normal coronary arteries. Type 2 diabetes mellitus. Continue SSRI and Accu-Cheks. Tight glycemic control. Essential primary hypertension. Continue home antihypertensive medications. Morbid obesity. Patient will be counseled on weight loss and importance of a balanced diet. Obstructive sleep apnea. O2 to maintain sats greater than 92%. Hyperlipidemia. Continue Pravachol. Asthma with no evidence of acute exacerbation. 05/11/2020. CT scan reveals extensive retroperitoneal and pelvic lymphadenopathy concerning for neoplasm/metastasis. Also, enlargement of the cervix and vaginal prominence that may represent primary neoplasm. Patient also with significant weight loss and anemia. [employer] WAITER/WAITRESS and hematology consultation. Check tumor markers of alpha-fetoprotein, CA-125, CA 199 and CEA. Hemoglobin 6.9 today. T & C and transfuse 2 units PRBCs. 05/12/2020. I discussed the case with Dr. Vázquez (CLUB WAITER/WAITRESS) who reports exam does reveal cervical mass most likely cervical cancer. Patient will need outpatient follow-up with CLUB WAITER/WAITRESS oncology. Patient with left-sided pleuritic chest pain. CTA of chest ordered to rule out PE. Patient with risk factors given probable malignancy. 05/13/2020. I discussed the case with Dr. Tran (oncology) who recommends general surgery consultation for excisional mesenteric lymph node biopsy for further evaluation r/o lymphoma. Await tumor markers as noted above. CTA of chest did not show evidence of PE but revealed pulmonary nodule. 05/14/2020. I will discuss with Dr. Rojas oncology is concerned with possible lymphoma. Follow-up tumor markers. Patient will need outpatient follow-up with CL[employer] WAITER/WAITRESS oncology to evaluate for metastatic cervical cancer History Interval history: No new issues overnight. Hospitalist Physical - Constitutional Vitals: Temp Pulse Resp BP Pulse Ox 97.6 F 79 19 99/56 98 05/14/20 03:17 05/14/20 04:21 05/14/20 03:17 05/14/20 03:17 05/14/20 03:17 General appearance: Present: no acute distress, obese - EENT Eyes: Present: PERRL, EOM intact ENT: hearing intact, clear oral mucosa, dentition normal - Neck Neck: Present: supple, normal ROM - Respiratory Respiratory effort: normal Respiratory: bilateral: CTA - Cardiovascular Rhythm: regular Heart Sounds: Present: S1 & S2. Absent: gallop, rub - Extremities Extremities: no ischemia, No edema, Full ROM - Abdominal General gastrointestinal: soft, non-tender, non-distended, normal bowel sounds - Integumentary Integumentary: Present: clear, warm, dry - Neurologic Neurologic: CNII-XII intact, moves all extremities HEART Score - HEART Score Troponin: Troponin T < 0.010 ng/mL (0.00-0.029) 05/09/20 20:12 Results - Labs CBC & Chem 7: 05/14/20 05:20 05/14/20 05:20 Labs: Laboratory Last Values WBC 7.1 K/mm3 (4.5-11.0) 05/14/20 05:20 RBC 3.71 M/mm3 (3.65-5.03) 05/14/20 05:20 Hgb 7.9 gm/dl (10.1-14.3) L 05/14/20 05:20 Hct 25.5 % (30.3-42.9) L 05/14/20 05:20 MCV 69 fl (79-97) L 05/14/20 05:20 MCH 21 pg (28-32) L 05/14/20 05:20 MCHC 31 % (30-34) 05/14/20 05:20 RDW 23.8 % (13.2-15.2) H 05/14/20 05:20 Plt Count 147 K/mm3 (140-440) 05/14/20 05:20 Lymph % (Auto) 13.4 % (13.4-35.0) 05/14/20 05:20 [place] % (Auto) 11.0 % (0.0-7.3) H 05/14/20 05:20 Eos % (Auto) 2.3 % (0.0-4.3) 05/14/20 05:20 Baso % (Auto) 0.9 % (0.0-1.8) 05/14/20 05:20 Lymph # (Auto) 0.9 K/mm3 (1.2-5.4) L 05/14/20 05:20 [place] # (Auto) 0.8 K/mm3 (0.0-0.8) 05/14/20 05:20 Eos # (Auto) 0.2 K/mm3 (0.0-0.4) 05/14/20 05:20 Baso # (Auto) 0.1 K/mm3 (0.0-0.1) 05/14/20 05:20 Seg Neutrophils % 72.4 % (40.0-70.0) H 05/14/20 05:20 Seg Neutrophils # 5.1 K/mm3 (1.8-7.7) 05/14/20 05:20 PT 16.5 Sec. (12.2-14.9) H 05/09/20 20:12 INR 1.33 (0.87-1.13) H 05/09/20 20:12 APTT 31.0 Sec. (24.2-36.6) 05/09/20 20:12 D-Dimer 643.75 ng/mlDDU (0-234) H 05/09/20 20:12 Sodium 136 mmol/L (137-145) L 05/14/20 05:20 Potassium 3.4 mmol/L (3.6-5.0) L 05/14/20 05:20 Chloride 100.9 mmol/L (98-107) 05/14/20 05:20 Carbon Dioxide 24 mmol/L (22-30) 05/14/20 05:20 Anion Gap 15 mmol/L 05/14/20 05:20 BUN 19 mg/dL (7-17) H 05/14/20 05:20 Creatinine 0.6 mg/dL (0.6-1.2) 05/14/20 05:20 Estimated GFR > 60 ml/min 05/14/20 05:20 BUN/Creatinine Ratio 32 % 05/14/20 05:20 Glucose 116 mg/dL (65-100) H 05/14/20 05:20 POC Glucose 111 mg/dL (70-105) H 05/14/20 08:11 Hemoglobin A1c 8.6 % (4-6) H 05/09/20 20:12 Calcium 8.5 mg/dL (8.4-10.2) 05/14/20 05:20 Magnesium 1.60 mg/dL (1.7-2.3) L 05/10/20 Unknown Iron 19 ug/dL (37-170) L 05/10/20 Unknown TIBC 362 mcg/dL (250-450) 05/10/20 Unknown Total Bilirubin 0.70 mg/dL (0.1-1.2) 05/09/20 20:12 AST 19 units/L (5-40) 05/09/20 20:12 ALT 8 units/L (7-56) 05/09/20 20:12 Alkaline Phosphatase 133 units/L (35-129) H 05/09/20 20:12 Lactate Dehydrogenase 374 units/L (91-180) H 05/12/20 07:09 Troponin T < 0.010 ng/mL (0.00-0.029) 05/09/20 20:12 NT-Pro-B Natriuret Pep 1504 pg/mL (0-450) H 05/09/20 20:12 Total Protein 8.2 g/dL (6.3-8.2) 05/09/20 20:12 Albumin 3.6 g/dL (3.9-5) L 05/09/20 20:12 Albumin/Globulin Ratio 0.8 % 05/09/20 20:12 HCG, Qual Negative (Negative) 05/09/20 20:12 Blood Type A NEGATIVE 05/11/20 15:20 Antibody Screen Positive 05/11/20 15:20 Antibody Identification Anti-s 05/11/20 15:20 Antigen Identification Cancelled 05/11/20 15:20 Crossmatch See Detail 05/11/20 15:20 - Diagnostic Impressions Diagnostic Impressions: Echocardiogram 05/10/20 00:10 Transthoracic Echocardiogram Indication: Dyspnea BP: 114/67 HR: 100 Conclusions *The left ventricular chamber size is normal. *Global left ventricular wall motion and contractility are within normal limits. *Global left ventricular systolic function is normal. *The estimated ejection fraction is 55-60%. *Abnormal left ventricular diastolic filling is observed, consistent with impaired relaxation. *The left atrium is mildly dilated. *Mild mitral leaflet calcification is visualized. *Mild mitral leaflet calcification is visualized. *There is mild mitral regurgitation. MV leaflet movement is normal. *The right ventricular systolic pressure is calculated at 42 mmHg. Findings Left Ventricle: The left ventricular chamber size is normal. Global left ventricular wall motion and contractility are within normal limits. Global left ventricular systolic function is normal. The estimated ejection fraction is 55-60%. Abnormal left ventricular diastolic filling is observed, consistent with impaired relaxation. Left Atrium: The left atrium is mildly dilated. Right Ventricle: The right ventricle is not well visualized. Right Atrium: The right atrium is not well visualized. The interatrial septum bowed toward the left. Interatrial septal aneurysm is noted,saline contrast is non diagnostic for evalautuion of shunt. Aortic Valve: The aortic valve leaflets are mildly thickened. Mitral Valve: Mild mitral leaflet calcification is visualized. There is mild mitral regurgitation. MV leaflet movement is normal. The mean gradient across the mitral valve is 6 mmHg. The peak gradient across the mitral valve is 15 mmHg. Tricuspid Valve: The tricuspid valve leaflets are normal. There is mild tricuspid regurgitation. The right ventricular systolic pressure is calculated at 42 mmHg. Pulmonic Valve: The pulmonic valve appears normal. There is trace pulmonic regurgitation. Pericardium: There is no pericardial effusion. Aorta: The aorta appears normal. There is mild dilatation of the ascending aorta. Venous: The inferior vena cava is dilated. There is less than 50% respiratory change in the inferior vena cava dimension. Contrast: Intravenous contrast was used to enhance endocardial border definition. Intravenous agitated saline contrast was used to assess intracardiac shunting. Measurements Chambers 2D Name Value Normal Range IVSd (2D) 1.09 cm (0.6 - 1.1) LVPWd (2D) 1.07 cm (0.6 - 1.1) LVIDd (2D) 4.71 cm (3.7 - 5.6) LVIDs (2D) 3.65 cm (2 - 3.8) LV FS (2D) 22.48 % - Ao root diameter (2D) 2.96 cm (2 - 3.7) Volumes/Mass Name Value Normal Range LA ESV SP 4CH (A/L) 92.8 ml - LA ESV SP 2CH (A/L) 87.83 ml - LA ESV BP (A/L) 92.27 ml - LA ESV BP (A/L) index 37.81 ml/m2 - LA ESV SP 4CH (MOD) 89.22 ml - LA ESV SP 2CH (MOD) 86.16 ml - LA ESV BP (MOD) 89.44 ml - LA ESV BP (MOD) index 36.65 ml/m2 - Diastolic/Systolic Function Name Value Normal Range MV E-wave Vmax 1.29 m/sec - MV deceleration time 243.86 msec - MV A-wave Vmax 0.77 m/sec - MV E:A ratio 1.67 ratio - Aortic Valve Name Value Normal Range AV Vmax 1.73 m/sec - AV VTI 35.33 cm - AV peak gradient 11.98 mmHg - AV mean gradient 6.81 mmHg - LVOT diameter 2.18 cm - LVOT Vmax 1.22 m/sec - LVOT VTI 25.64 cm - LVOT peak gradient 5.97 mmHg - LVOT mean gradient 3.61 mmHg - SV LVOT 95.28 ml - ARUN (continuity Vmax) 2.62 cm2 - ARUN (continuity VTI) 2.7 cm2 - Ascending Ao 3.53 cm - Mitral Valve Name Value Normal Range MV Vmax 1.94 m/sec - MV VTI 38.66 cm - MV peak gradient 15 mmHg - MV mean gradient 6 mmHg - MR Vmax 4.63 m/sec - MVA (continuity VTI) 2.46 cm2 - Tricuspid Valve Name Value Normal Range TR Vmax 2.67 m/sec - TR peak gradient 28.41 mmHg - RAP 15 mmHg - RVSP 42 mmHg - IVC diameter 2.54 cm (1.2 - 2.3) Pulmonic Valve/Qp:Qs Name Value Normal Range PV Vmax 1.27 m/sec - PV peak gradient 6.49 mmHg - ID end-diastolic Vmax 1.6 m/sec - PV acceleration time 76.12 msec - Garber/IV: Voiding Method Toilet IV Catheter Type [Left Forearm INT / Saline Lock ] IV Catheter Type [Right INT / Saline Lock Antecubital] Active Medications - Current Medications Current Medications: Generic Name Dose Route Start Last Admin Trade Name Freq PRN Reason Stop Dose Admin Acetaminophen 650 mg 05/10/20 15:51 05/13/20 21:20 Acetaminophen 325 Mg Tab PO 650 mg Q4H PRN Administration Pain, Mild (1-3) Al Hydrox/Mg Hydrox/Simethicone 30 ml 05/11/20 22:52 05/11/20 23:19 Alum-Mag Hydroxide-Simethicone [phone]/[phone] Oral Liqd 30 Ml PO 30 ml Q4H PRN Administration Indigestion Aspirin 81 mg 05/10/20 10:00 05/13/20 09:28 Baby Aspirin PO 81 mg QDAY KALI Administration Bumetanide 1 mg 05/12/20 10:00 05/14/20 05:17 Bumetanide 1 Mg/4 Ml Inj IV 1 mg BID@0600,1800 KALI Administration Diltiazem HCl 240 mg 05/10/20 10:00 05/13/20 09:30 Cardizem Cd PO 240 mg QDAY KALI Administration Enoxaparin Sodium 40 mg 05/10/20 22:00 05/13/20 21:15 Enoxaparin SUB-Q 40 mg QDAY@2200 [facility] Administration Protocol Ferric Sodium Gluconate 110 mls @ 100 mls/hr 05/13/20 10:00 05/13/20 09:36 Complex 125 mg/ Sodium IV 05/16/20 09:59 100 mls/hr Chloride QDAY KALI Administration Insulin Glargine 30 units 05/10/20 10:00 05/13/20 21:21 Lantus SUB-Q 30 units BID KALI Administration Insulin Human Regular 0 unit 05/10/20 07:30 05/14/20 08:22 Insulin Regular, Human 100 Unit/Ml 3ml Vial SUB-Q Not Given ACHS [facility] Protocol Metoprolol Tartrate 50 mg 05/10/20 02:00 05/13/20 21:16 Metoprolol PO 50 mg BID KALI Administration Multivitamins 1 each 05/10/20 10:00 05/13/20 09:29 Theragran Tab PO 1 each QDAY [facility] Administration Nitroglycerin 0.4 mg 05/10/20 00:04 Nitrostat SL .Q5MIN PRN Chest Pain Pravastatin Sodium 80 mg 05/10/20 22:00 05/13/20 21:15 Pravachol PO 80 mg QHS KALI Administration Tramadol HCl 25 mg 05/10/20 00:12 Ultram PO Q4H PRN Pain, Moderate (4-6) Nutrition/Malnutrition Assess - Dietary Evaluation Nutrition/Malnutrition Findings: Nutrition Notes Start: 05/10/20 12:28 Freq: Status: Active Protocol: Document 05/10/20 12:29 EN (Rec: 05/10/20 12:37 EN [id number]) Co-Sign 05/10/20 12:29 LM Nutrition Notes Need for Assessment generated from: MD Order,Education Initial or Follow up Brief Note Current Diagnosis Diabetes,Hypertension,Heart Failure,Hyperlipidemia Other Pertinent Diagnosis Anemia, Gall stones, Sleep apnea Current Diet Cardiac [place] Body Weight (kg) 0 Subjective/Other Information MD consult for diet education. Pt diagnosed with new onset CHF. Pt reports eating well with good appetite both [employer]GE[employer] and during admission. Pt consuming 100% of meals. Pt accepted diet education for both CHF and DM. Pt has no further questions. #1 Nutrition Diagnosis Food and nutrition-related knowledge deficit Etiology no previous CHF and DM education As Evidenced by Signs and Symptoms pt expressed desire for education and verbalized questions Nutrition Intervention Change Diet Order: Cardiac/Consistent CHO Teaching Recipient Patient Learning Readiness Good Teaching Methods Discussion,Handout Response to Teaching Verbalize understanding Education Handouts Provided CHF and Consitent CHO handouts Barriers to Learning No Barriers RD phone number provided Yes Patient aware of follow up options Yes Anticipated Discharge Needs: Cardiac/Consistent CHO diet Revisit per MD consult or patient Sign Off request:
[2020-05-14] MEDS: INSULIN GLARGINE 100 UNITS/ML SUB-Q SCH ×2 (09:29→21:20)
[2020-05-14] MEDS: ASPIRIN 81 MG TAB CHEW PO SCH (09:29)
[2020-05-14] MEDS: MULTIVITAMINS ,THERAPEUTIC TAB PO SCH (09:29)
[2020-05-14] MEDS: SODIUM FERRIC GLUCON/SUCRO 125 MG in SODIUM CHLORIDE 0.9% 100 ML IV SCH (09:29)
[2020-05-14] MEDS: METOPROLOL TARTRATE 50 MG TAB PO SCH ×2 (09:30→21:19)
[2020-05-14] MEDS: dilTIAZem CD 240 MG CAP PO SCH (09:31)
--- NOTE | 2020-05-14 10:04 | Progress Note ---
Assessment and Plan Acute on chronic Heart failure with a preserved ejection fraction echo this presentation - normal LVEF 55%. Left sided pleuritic chest pain CTA chest this admission showed no PE Permanent atrial fibrillation rate controlled previously considered no longer a candidate for oral anticoagulation due to severe anemia and vaginal bleed. Chronic shortness of breath cardiac cath in 2015 showing normal coronary arteries. Abdominal pain CT scan suspicious for malignancy Type 2 diabetes mellitus Essential primary hypertension Morbid obesity Obstructive sleep apnea Chronic Anemia Hx of COPD Continue medical therapy for permanent atrial fibrillation and heart failure with a preserved ejection fraction. Subjective Date of service: 05/14/20 Principal diagnosis: Shortness of breath Interval history: Patient reports she is diuresing well. No distress noted. Atrial fibrillation with a well controlled ventricular rate on telemetry. Objective Vital Signs Temp Pulse Resp BP Pulse Ox 05/14/20 09:31 90 114/69 05/14/20 09:30 93 H 114/69 100 05/14/20 08:06 98.2 F 83 20 105/51 100 05/14/20 04:21 79 05/14/20 03:17 97.6 F 82 19 99/56 98 05/14/20 00:12 98.5 F 81 19 91/54 97 05/13/20 23:47 16 98 05/13/20 22:00 93 H 05/13/20 21:16 112/59 05/13/20 19:48 98.0 F 97 H 17 112/59 99 05/13/20 17:00 89 05/13/20 16:15 98.3 F 85 20 105/50 98 05/13/20 11:49 97.9 F 86 20 103/61 97 - Physical Examination General: No Apparent Distress, Other (obese) HEENT: Positive: PERRL Neck: Positive: trachea midline Cardiac: Positive: irregularly irregular Lungs: Positive: Decreased Breath Sounds Neuro: Positive: Grossly Intact Extremities: Absent: edema - Labs and Meds CBC 05/14/20 Range/Units 05:20 WBC 7.1 (4.5-11.0) K/mm3 RBC 3.71 (3.65-5.03) M/mm3 Hgb 7.9 L (10.1-14.3) gm/dl Hct 25.5 L (30.3-42.9) % Plt Count 147 (140-440) K/mm3 Lymph # (Auto) 0.9 L (1.2-5.4) K/mm3 [place] # (Auto) 0.8 (0.0-0.8) K/mm3 Eos # (Auto) 0.2 (0.0-0.4) K/mm3 Baso # (Auto) 0.1 (0.0-0.1) K/mm3 Comprehensive Metabolic Panel 05/14/20 Range/Units 05:20 Sodium 136 L (137-145) mmol/L Potassium 3.4 L (3.6-5.0) mmol/L Chloride 100.9 (98-107) mmol/L Carbon Dioxide 24 (22-30) mmol/L BUN 19 H (7-17) mg/dL Creatinine 0.6 (0.6-1.2) mg/dL Glucose 116 H (65-100) mg/dL Calcium 8.5 (8.4-10.2) mg/dL
[2020-05-14] MEDS: PRAVASTATIN 80 MG TAB PO SCH (21:18)
[2020-05-14] MEDS: ENOXAPARIN 40 MG/0.4 ML INJ SUB-Q SCH (21:19)
[2020-05-14] MEDS: ACETAMINOPHEN 325 MG TAB PO PRN (21:58)
[2020-05-15] MEDS: INSULIN REGULAR, HUMAN 100 UNIT/ML 3ML VIAL SUB-Q SCH ×2 (00:46→07:54)
[2020-05-15 05:27] LABS: Blood Urea Nitrogen 18 mg/dL (7-17); Calcium 8.5 mg/dL (8.4-10.2); Hemolysis Index 23
[2020-05-15 05:30] LABS: BUN/Creatinine Ratio 26
[2020-05-15] MEDS: BUMETANIDE 1 MG/4 ML INJ IV SCH (05:38)
[2020-05-15] MEDS: ACETAMINOPHEN 325 MG TAB PO PRN (05:40)
[2020-05-15 05:47] LABS: Hematocrit 27.1 % (30.3-42.9); Hemoglobin 8.4 gm/dl (10.1-14.3); Mean Corpuscular HGB Conc 31 % (30-34); Platelet Count 143 K/mm3 (140-440); Red Blood Count 3.92 M/mm3 (3.65-5.03)
[2020-05-15 05:56] LABS: Mean Corpuscular Volume 69 fl (79-97); Red Cell Distribution Width 25.1 % (13.2-15.2)
[2020-05-15 06:39] LABS: Total Cells Counted 100
[2020-05-15 06:40] LABS: Anisocytosis 1+; Hypochromasia 1+
[2020-05-15 06:41] LABS: Ovalocytes Few; Platelet Estimate Consistent w Auto
--- NOTE | 2020-05-15 09:15 | Hem/Onc Progress Note ---
Subjective Date of service: 05/14/20 Interval history: oncology f/u televisit by Booker 49yo obese woman (330 lbs) with impressive lymphadenopathy now presents with abd distension, night sweats since admission found to have severe anemia-->RBC transfusions done found to have impressive retroperitoneal and pelvic LA and HSM and pl effusion cervix enlargement noted on CT scan [facility] consult rec noted-->[facility] ONC referral, gen surgery defers LN biopsy because looks like [facility] malignancy CA125 = 92 (not high enough to be consistent with ovarian ca) DATA REVIEWED BELOW IMPRESSION: presumed malignancy, lymphoma vs. carcinoma (she could have both) her presentation and pattern are concerning for lymphoma I recommend LN aspirate or excisional biopsy when/where possible, instead of or in addition to a [facility] ONC surgery CEA pending--if it's very high that will make this more convicing for carcinoma>>lymphoma RECOMMEND: If she leaves without a biopsy, ensure she has a solid f/u plan with both in- person heme/onc and [facility] ONC discussed with patient-->she will need f/u very soon to make dx and start chemotherapy holidays are here-->this will cause delays-->she need intervention soon Vital Signs Temp Pulse Resp BP Pulse Ox 98.5 F 89 19 99/56 95 05/15/20 04:48 05/15/20 04:48 05/15/20 04:48 05/15/20 04:48 05/15/20 04:48 Temperature -Last 24 Hours Temperature 98.5 F Temperature 98 F Temperature 98.4 F Temperature 97.9 F Active Medications Acetaminophen (Acetaminophen 325 Mg Tab) 650 mg PO Q4H PRN PRN Reason: Pain, Mild (1-3) Last Admin: 05/15/20 05:40 Dose: 650 mg Documented by: Al Hydrox/Mg Hydrox/Simethicone (Alum-Mag Hydroxide-Simethicone [id number]/5ml Oral Liqd 30 Ml) 30 ml PO Q4H PRN PRN Reason: Indigestion Last Admin: 05/11/20 23:19 Dose: 30 ml Documented by: Aspirin (Baby Aspirin) 81 mg PO QDAY [facility] Last Admin: 05/14/20 09:29 Dose: 81 mg Documented by: Bumetanide (Bumetanide 1 Mg/4 Ml Inj) 1 mg IV BID@0600,1800 [facility] Last Admin: 05/15/20 05:38 Dose: 1 mg Documented by: Diltiazem HCl (Cardizem Cd) 240 mg PO QDAY [facility] Last Admin: 05/14/20 09:31 Dose: 240 mg Documented by: Enoxaparin Sodium (Enoxaparin) 40 mg SUB-Q QDAY@2200 [facility]; Protocol Last Admin: 05/14/20 21:19 Dose: 40 mg Documented by: Ferric Sodium Gluconate Complex 125 mg/ Sodium Chloride 110 mls @ 100 mls/hr IV QDAY [facility] Stop: 05/16/20 09:59 Last Admin: 05/14/20 09:29 Dose: 100 mls/hr Documented by: Insulin Glargine (Lantus) 30 units SUB-Q BID [facility] Last Admin: 05/14/20 21:20 Dose: 30 units Documented by: Insulin Human Regular (Insulin Regular, Human 100 Unit/Ml 3ml Vial) 0 unit SUB- Q ACHS [facility]; Protocol Last Admin: 05/15/20 00:46 Dose: Not Given Documented by: Metoprolol Tartrate (Metoprolol) 50 mg PO BID [facility] Last Admin: 05/14/20 21:19 Dose: 50 mg Documented by: Multivitamins (Theragran Tab) 1 each PO QDAY [facility] Last Admin: 05/14/20 09:29 Dose: 1 each Documented by: Nitroglycerin (Nitrostat) 0.4 mg SL .Q5MIN PRN PRN Reason: Chest Pain Pravastatin Sodium (Pravachol) 80 mg PO QHS [facility] Last Admin: 05/14/20 21:18 Dose: 80 mg Documented by: Tramadol HCl (Ultram) 25 mg PO Q4H PRN PRN Reason: Pain, Moderate (4-6) Laboratory Last Values WBC 7.7 K/mm3 (4.5-11.0) 05/15/20 04:51 Hgb 8.4 gm/dl (10.1-14.3) L 05/15/20 04:51 Hct 27.1 % (30.3-42.9) L 05/15/20 04:51 MCV 69 fl (79-97) L 05/15/20 04:51 Plt Count 143 K/mm3 (140-440) 05/15/20 04:51 Lactate Dehydrogenase 374 units/L (91-180) H 05/12/20 07:09 CA 125 Antigen 92 U/mL (<35) H 05/11/20 15:21 Crossmatch See Detail 05/11/20 15:20 Objective - Constitutional Vitals: Last Vital Signs Temp 98.5 F 05/15/20 04:48 Pulse 89 05/15/20 04:48 Resp 19 05/15/20 04:48 BP 99/56 05/15/20 04:48 Pulse Ox 95 05/15/20 04:48 - Labs Lab Results: Laboratory Results - last 24 hr 05/11/20 05/14/20 05/14/20 15:21 12:04 16:22 WBC RBC Hgb Hct MCV MCH MCHC RDW Plt Count Add Manual Diff Total Counted Seg Neuts % (Manual) Lymphocytes % (Manual) Monocytes % (Manual) Eosinophils % (Manual) Nucleated RBC % Seg Neutrophils # Man Band Neutrophils # Lymphocytes # (Manual) Abs React Lymphs (Man) Monocytes # (Manual) Eosinophils # (Manual) Basophils # (Manual) Metamyelocytes # Myelocytes # Promyelocytes # Blast Cells # WBC Morphology Hypersegmented Neuts Hyposegmented Neuts Hypogranular Neuts Smudge Cells Toxic Granulation Toxic Vacuolation Dohle Bodies Pelger-Huet Anomaly Angela Rods Platelet Estimate Clumped Platelets Plt Clumps, EDTA Large Platelets Giant Platelets Platelet Satelliting Plt Morphology Comment RBC Morphology Dimorphic RBCs Polychromasia Hypochromasia Poikilocytosis Anisocytosis Microcytosis Macrocytosis Spherocytes Pappenheimer Bodies Sickle Cells Target Cells Tear Drop Cells Ovalocytes Helmet Cells Berg-Mccaulley Bodies [place] Rings [place] Cells Bite Cells Crenated Cell Elliptocytes Acanthocytes (Spur) Rouleaux Hemoglobin C Crystals Schistocytes Malaria parasites Minh Bodies Hem Pathologist Commnt Sodium Potassium Chloride Carbon Dioxide Anion Gap BUN Creatinine Estimated GFR BUN/Creatinine Ratio Glucose POC Glucose 131 H 209 H Calcium CA 125 Antigen 92 H 05/14/20 05/15/20 05/15/20 21:54 04:51 04:51 WBC 7.7 RBC 3.92 Hgb 8.4 L Hct 27.1 L MCV 69 L MCH 22 L MCHC 31 RDW 25.1 H Plt Count 143 Add Manual Diff Complete Total Counted 100 Seg Neuts % (Manual) 77.0 H Lymphocytes % (Manual) 11.0 L Monocytes % (Manual) 10.0 H Eosinophils % (Manual) 2.0 Nucleated RBC % Not Reportable Seg Neutrophils # Man 5.9 Band Neutrophils # 0.0 Lymphocytes # (Manual) 0.8 L Abs React Lymphs (Man) 0.0 Monocytes # (Manual) 0.8 Eosinophils # (Manual) 0.2 Basophils # (Manual) 0.0 Metamyelocytes # 0.0 Myelocytes # 0.0 Promyelocytes # 0.0 Blast Cells # 0.0 WBC Morphology Not Reportable Hypersegmented Neuts Not Reportable Hyposegmented Neuts Not Reportable Hypogranular Neuts Not Reportable Smudge Cells Not Reportable Toxic Granulation Not Reportable Toxic Vacuolation Not Reportable Dohle Bodies Not Reportable Pelger-Huet Anomaly Not Reportable Angela Rods Not Reportable Platelet Estimate Consistent w auto Clumped Platelets Not Reportable Plt Clumps, EDTA Not Reportable Large Platelets Not Reportable Giant Platelets Not Reportable Platelet Satelliting Not Reportable Plt Morphology Comment Not Reportable RBC Morphology Not Reportable Dimorphic RBCs Not Reportable Polychromasia Not Reportable Hypochromasia 1+ Poikilocytosis Not Reportable Anisocytosis 1+ Microcytosis 1+ Macrocytosis Not Reportable Spherocytes Not Reportable Pappenheimer Bodies Not Reportable Sickle Cells Not Reportable Target Cells Not Reportable Tear Drop Cells Not Reportable Ovalocytes Few Helmet Cells Not Reportable Berg-Mccaulley Bodies Not Reportable [place] Rings Not Reportable [place] Cells Not Reportable Bite Cells Not Reportable Crenated Cell Not Reportable Elliptocytes Not Reportable Acanthocytes (Spur) Not Reportable Rouleaux Not Reportable Hemoglobin C Crystals Not Reportable Schistocytes Not Reportable Malaria parasites Not Reportable Minh Bodies Not Reportable Hem Pathologist Commnt No Sodium 131 L Potassium 3.6 Chloride 97.7 L Carbon Dioxide 26 Anion Gap 11 BUN 18 H Creatinine 0.7 Estimated GFR > 60 BUN/Creatinine Ratio 26 Glucose 135 H POC Glucose 167 H Calcium 8.5 CA 125 Antigen 05/15/20 07:25 WBC RBC Hgb Hct MCV MCH MCHC RDW Plt Count Add Manual Diff Total Counted Seg Neuts % (Manual) Lymphocytes % (Manual) Monocytes % (Manual) Eosinophils % (Manual) Nucleated RBC % Seg Neutrophils # Man Band Neutrophils # Lymphocytes # (Manual) Abs React Lymphs (Man) Monocytes # (Manual) Eosinophils # (Manual) Basophils # (Manual) Metamyelocytes # Myelocytes # Promyelocytes # Blast Cells # WBC Morphology Hypersegmented Neuts Hyposegmented Neuts Hypogranular Neuts Smudge Cells Toxic Granulation Toxic Vacuolation Dohle Bodies Pelger-Huet Anomaly Angela Rods Platelet Estimate Clumped Platelets Plt Clumps, EDTA Large Platelets Giant Platelets Platelet Satelliting Plt Morphology Comment RBC Morphology Dimorphic RBCs Polychromasia Hypochromasia Poikilocytosis Anisocytosis Microcytosis Macrocytosis Spherocytes Pappenheimer Bodies Sickle Cells Target Cells Tear Drop Cells Ovalocytes Helmet Cells Berg-Mccaulley Bodies [place] Cells Bite Cells Crenated Cell Elliptocytes Acanthocytes (Spur) Rouleaux Hemoglobin C Crystals Schistocytes Malaria parasites Minh Bodies Hem Pathologist Commnt Sodium Potassium Chloride Carbon Dioxide Anion Gap BUN Creatinine Estimated GFR BUN/Creatinine Ratio Glucose POC Glucose 112 H Calcium CA 125 Antigen Medications & Allergies - Medications Allergies/Adverse Reactions: Allergies cephalexin monohydrate [From Keflex] Allergy (Verified 05/09/20 18:39) Nausea ciprofloxacin Allergy (Verified 05/09/20 18:39) Diarrhea lisinopril Allergy (Verified 05/09/20 18:39) Unknown Cough Penicillins Allergy (Verified 05/09/20 18:39) Swelling metformin Adverse Reaction (Verified 05/09/20 18:39) Diarrhea Home Medications: Home Medications Medication Instructions Recorded Confirmed Last Taken Type Simvastatin [Zocor TAB] 40 mg PO QHS 06/02/13 05/12/20 05/12/20 10:33 History dilTIAZem CD [Cardizem CD] 240 mg PO QDAY #30 capsule 06/05/13 05/12/20 05/12/20 10:33 Rx Apixaban [Eliquis] 5 mg PO BID 11/12/16 05/12/20 06/23/19 History Digoxin 250 mcg PO Q24HR #30 tablet 11/13/16 05/12/20 06/23/19 Rx Metoprolol [Lopressor TAB] 50 mg PO BID 06/17/19 05/12/20 05/12/20 10:34 History Benzonatate [Tessalon Perles] 100 mg PO Q8HR #30 capsule 06/21/19 05/12/2006/23/20 Rx Empagliflozin [Jardiance] 10 mg PO DAILY #30 tablet 06/21/19 05/12/20 Unknown Rx Insulin Glargine [Lantus VIAL] 70 units SUB-Q BID #5 vial 06/21/19 05/12/20 05/12/20 10:34 Rx Lispro Insulin [HumaLOG] 45 unit SUB-Q TIDAC #5 vial 06/21/19 05/12/20 05/12/20 10:34 Rx Pantoprazole [Protonix TAB] 40 mg PO QDAY #30 tablet 06/21/19 05/12/20 06/23/19 Rx Sennosides/Docusate [Senokot S] 2 tab PO Q12H PRN #30 tablet 06/21/19 05/12/20 05/12/20 10:33 Rx polyethylene glycoL 3350 [Miralax 17 gm PO QDAY PRN #30 powd.pack 06/21/19 05/12/20 Unknown Rx 3350] Albuterol Mdi (or & Nicu Only) 2 puff IH QID PRN #8.5 gram 06/26/19 05/12/20 Unknown Rx [ProAir HFA Inhaler] Azithromycin [Zithromax TAB] 500 mg PO QDAY #4 tablet 06/26/19 05/12/20 Unknown Rx Prednisone [predniSONE 10 mg 10 mg PO .TAPER #1 tab.ds.pk 06/26/19 05/12/20 Unknown Rx (6-Day Pack, 21 Tabs)] Clindamycin [Clindamycin CAP] 300 mg PO Q8H #21 cap 08/16/19 05/12/20 Unknown Rx Naproxen 500 mg PO Q12H PRN #12 tablet 08/16/19 05/12/20 Unknown Rx Active Medications: Generic Name Dose Route Start Last Admin Trade Name Freq PRN Reason Stop Dose Admin Acetaminophen 650 mg 05/10/20 15:51 05/15/20 05:40 Acetaminophen 325 Mg Tab PO 650 mg Q4H PRN Administration Pain, Mild (1-3) Al Hydrox/Mg Hydrox/Simethicone 30 ml 05/11/20 22:52 05/11/20 23:19 Alum-Mag Hydroxide-Simethicone [id number]/5ml Oral Liqd 30 Ml PO 30 ml Q4H PRN Administration Indigestion Aspirin 81 mg 05/10/20 10:00 05/14/20 09:29 Baby Aspirin PO 81 mg QDAY [facility] Administration Bumetanide 1 mg 05/12/20 10:00 05/15/20 05:38 Bumetanide 1 Mg/4 Ml Inj IV 1 mg BID@0600,1800 [facility] Administration Diltiazem HCl 240 mg 05/10/20 10:00 05/14/20 09:31 Cardizem Cd PO 240 mg QDAY [facility] Administration Enoxaparin Sodium 40 mg 05/10/20 22:00 05/14/20 21:19 Enoxaparin SUB-Q 40 mg QDAY@2200 [facility] Administration Protocol Ferric Sodium Gluconate 110 mls @ 100 mls/hr 05/13/20 10:00 05/14/20 09:29 Complex 125 mg/ Sodium IV 05/16/20 09:59 100 mls/hr Chloride QDAY [facility] Administration Insulin Glargine 30 units 05/10/20 10:00 05/14/20 21:20 Lantus SUB-Q 30 units BID [facility] Administration Insulin Human Regular 0 unit 05/10/20 07:30 05/15/20 00:46 Insulin Regular, Human 100 Unit/Ml 3ml Vial SUB-Q Not Given ACHS [facility] Protocol Metoprolol Tartrate 50 mg 05/10/20 02:00 05/14/20 21:19 Metoprolol PO 50 mg BID [facility] Administration Multivitamins 1 each 05/10/20 10:00 05/14/20 09:29 Theragran Tab PO 1 each QDAY [facility] Administration Nitroglycerin 0.4 mg 05/10/20 00:04 Nitrostat SL .Q5MIN PRN Chest Pain Pravastatin Sodium 80 mg 05/10/20 22:00 05/14/20 21:18 Pravachol PO 80 mg QHS [facility] Administration Tramadol HCl 25 mg 05/10/20 00:12 Ultram PO Q4H PRN Pain, Moderate (4-6)
--- NOTE | 2020-05-15 10:35 | Progress Note ---
Assessment and Plan Acute on chronic Heart failure with a preserved ejection fraction echo this presentation - normal LVEF 55%. Left sided pleuritic chest pain CTA chest this admission showed no PE Permanent atrial fibrillation rate controlled previously considered no longer a candidate for oral anticoagulation due to severe anemia and vaginal bleed. Chronic shortness of breath cardiac cath in 2015 showing normal coronary arteries. Abdominal pain CT scan showed enlarged lymph nodes in the retroperitoneum and pelvis suspicious for malignancy Type 2 diabetes mellitus Essential primary hypertension Morbid obesity Obstructive sleep apnea Chronic Anemia Hx of COPD Continue medical therapy for permanent atrial fibrillation and heart failure with a preserved ejection fraction. Conservative cardiac management. Subjective Date of service: 05/15/20 Principal diagnosis: Shortness of breath Interval history: Patient reports she is diuresing well. No distress noted. Atrial fibrillation with a well controlled ventricular rate on telemetry. Objective Vital Signs Temp Pulse Resp BP BP Pulse Ox 05/15/20 04:48 98.5 F 89 19 99/56 95 05/15/20 01:57 98 F 84 18 98/47 98 05/15/20 00:34 18 97 05/14/20 22:00 89 05/14/20 21:19 95 H 117/58 05/14/20 19:36 98.4 F 95 H 20 117/58 100 05/14/20 17:00 87 05/14/20 15:58 97.9 F 87 137/68 97 05/14/20 12:23 86 100 - Physical Examination General: No Apparent Distress, Other (obese) HEENT: Positive: PERRL Neck: Positive: trachea midline Cardiac: Positive: irregularly irregular Lungs: Positive: Decreased Breath Sounds Neuro: Positive: Grossly Intact Extremities: Absent: edema - Labs and Meds CBC 05/15/20 Range/Units 04:51 WBC 7.7 (4.5-11.0) K/mm3 RBC 3.92 (3.65-5.03) M/mm3 Hgb 8.4 L (10.1-14.3) gm/dl Hct 27.1 L (30.3-42.9) % Plt Count 143 (140-440) K/mm3 Comprehensive Metabolic Panel 05/15/20 Range/Units 04:51 Sodium 131 L (137-145) mmol/L Potassium 3.6 (3.6-5.0) mmol/L Chloride 97.7 L (98-107) mmol/L Carbon Dioxide 26 (22-30) mmol/L BUN 18 H (7-17) mg/dL Creatinine 0.7 (0.6-1.2) mg/dL Glucose 135 H (65-100) mg/dL Calcium 8.5 (8.4-10.2) mg/dL
[2020-05-15] MEDS: MULTIVITAMINS ,THERAPEUTIC TAB PO SCH (10:53)
[2020-05-15] MEDS: METOPROLOL TARTRATE 50 MG TAB PO SCH (10:53)
[2020-05-15] MEDS: dilTIAZem CD 240 MG CAP PO SCH (10:53)
[2020-05-15] MEDS: ASPIRIN 81 MG TAB CHEW PO SCH (10:53)
[2020-05-15] MEDS: INSULIN GLARGINE 100 UNITS/ML SUB-Q SCH (10:54)
--- NOTE | 2020-05-15 11:40 | Discharge Summary ---
Providers - Providers Date of Admission: 05/09/20 23:29 Date of discharge: 05/15/20 Attending physician: PAUL ADHIKARI 05/10/20 00:04 Consult to Physician [CONS] Stat Comment: Consulting Provider: GEOVANY BOOKER Physician Instructions: Reason For Exam: chf with acute exacerbation 05/10/20 00:09 Consult to Dietitian/Nutrition [CONS] Routine Physician Instructions: Reason For Exam: Reason for Consult: Diet education 05/10/20 00:28 Consult to Physician [CONS] Routine Comment: Consulting Provider: GILA VERDUGO V Physician Instructions: Reason For Exam: abdominal pain 05/10/20 13:25 Physical Therapy Evaluation and Treat [CONS] Routine Comment: Reason For Exam: debility Date of last referral: 05/10/20 05/11/20 10:14 Consult to Physician [CONS] Routine Comment: Consulting Provider: MARIA G RENE Physician Instructions: Reason For Exam: prob GI vs [employer] LO[employer] EXPEDITER malignancy Consult to Physician [CONS] Routine Comment: Consulting Provider: ИВАН MAGANA Physician Instructions: 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 05/13/20 08:34 Consult to Physician [CONS] Routine Comment: Consulting Provider: EVANGELINA GARCIA Physician Instructions: Reason For Exam: LN biopsy 05/13/20 18:57 Consult to Case Management [CONS] Routine Services Needed at Discharge: Grade Teacher Notified:: cm notified Additional Physician Instructions: appointments with heme/onc and vacuum drier operator onc 05/14/20 10:05 Occupational Therapy Evaluate and Treat [CONS] Routine Comment: Reason For Exam: evaluation Primary care physician: MANAGER TRANSPORTATION Hospitalization Reason for admission: Shortness of breath Condition: Stable Hospital course: 49-year-old female with a medical history of atrial fibrillation not on anticoagulation, diabetes, heart failure, hypertension, hyperlipidemia, obstructive sleep apnea who presented to the emergency room with chief complaint of shortness of breath and generalized edema. In the ER, she was found to have acute on chronic heart failure and anemia and was started on diuretics. Cardiology was consulted and patient was managed for heart failure. For anem ia, patient had a CT of the abdomen that showed extensive retroperitoneal lymphadenopathy concerning for neoplasm. GI and hematology oncology teams were consulted. Surgery was initially consulted to evaluate for possible exploratory laparotomy for excision of mesenteric lymph node biopsy and as per surgery, patient does not need this at this time. Patient needs a RETORT LOAD EXPEDITER oncology evaluation. As per RETORT LOAD EXPEDITER, patients pelvic node enlargement appears to be consistent with probable cervical malignancy and patient will need to be evaluated by a RETORT LOAD EXPEDITER oncologist. As patient is medically stable, patient will be scheduled to see [facility] LOAD EXPEDITER oncologist at [facility] - Dr. Bryan Krueger who has a office with [place]. Patient has been given Dr Krueger office number to set up an appointment with Dr. Krueger. manager acquisition will fax required documents to oncology office for referral to be made. Patient agrees with management and she will follow-up with RETORT LO[employer] EXPEDITER oncology at discharge. Disposition: DC- TO HOME OR SELFCARE - Discharge Diagnoses (1) Acute on chronic heart failure Status: Acute (2) Atrial fibrillation Status: Chronic (3) Diabetes 1.5, managed as type 2 Status: Chronic (4) Hypertension Status: Chronic Qualifiers: Hypertension type: essential hypertension Qualified Code(s): I10 - Essential (primary) hypertension (5) Sleep apnea Status: Chronic (6) Cervical mass Status: Acute Core Measure Documentation - Palliative Care Palliative Care/ Comfort Measures: Not Applicable - Core Measures Any of the following diagnoses?: none Exam - Constitutional Vitals: Temp Pulse Resp BP Pulse Ox 98.5 F 89 19 99/56 95 05/15/20 04:48 05/15/20 04:48 05/15/20 04:48 05/15/20 04:48 05/15/20 04:48 General appearance: Present: no acute distress, well-nourished - EENT Eyes: Present: PERRL ENT: hearing intact, clear oral mucosa - Neck Neck: Present: supple, normal ROM - Respiratory Respiratory effort: normal Respiratory: bilateral: CTA - Cardiovascular Heart Sounds: Present: S1 & S2. Absent: rub, click - Extremities Extremities: pulses symmetrical, No edema Peripheral Pulses: within normal limits - Abdominal General gastrointestinal: Present: soft, non-tender, non-distended, normal bowel sounds Female genitourinary: Present: normal - Integumentary Integumentary: Present: clear, warm, dry - Musculoskeletal Musculoskeletal: gait normal, strength equal bilaterally - Psychiatric Psychiatric: appropriate mood/affect, intact judgment & insight - Neurologic Neurologic: CNII-XII intact, moves all extremities Plan Activity: no restrictions Additional Instructions: Follow-up with RETORT LOAD EXPEDITER oncology-Dr. Krueger in the office. Call [phone] to schedule an appointment. Continue medications as prescribed Follow up with: PRIMARY CARE, [Primary Care Provider] - 7 Days Prescriptions: Aspirin [Aspirin BABY CHEW TAB] 81 mg PO QDAY #30 tab.chew dilTIAZem CD [Cardizem CD] 240 mg PO QDAY #30 capsule Furosemide [Lasix TAB] 40 mg PO QDAY #30 tablet Metoprolol [Lopressor TAB] 50 mg PO BID #60 tablet
[2020-05-15 12:38] VITALS: BP 130/71
== END 2020-05-15 16:40 | disposition home or self-care (01) | DRG 292 ==
LOC: ED 18:27 → 4A 23:29
PROVIDERS: ADMIT Internal Medicine Geriatric Medicine; ATTEND Internal Medicine
PROC: 30233N1 Transfusion of Nonautologous Red Blood Cells into Peripheral Vein, Percutaneous Approach (ICD-10-PCS; principal; 2020-05-12)
DX: I11.0 Hypertensive heart disease with heart failure (principal); E66.2 Morbid (severe) obesity with alveolar hypoventilation; Z68.43 Body mass index [BMI] 50.0-59.9, adult; I48.21 Permanent atrial fibrillation; I50.33 Acute on chronic diastolic (congestive) heart failure; E78.5 Hyperlipidemia, unspecified; F41.9 Anxiety disorder, unspecified; E11.40 Type 2 diabetes mellitus with diabetic neuropathy, unspecified; D64.9 Anemia, unspecified; J45.909 Unspecified asthma, uncomplicated; D49.59 Neoplasm of unspecified behavior of other genitourinary organ; R63.4 Abnormal weight loss; Z88.1 Allergy status to other antibiotic agents; Z88.0 Allergy status to penicillin; Z88.8 Allergy status to other drugs, medicaments and biological substances; I25.2 Old myocardial infarction; Z90.89 Acquired absence of other organs; Z79.4 Long term (current) use of insulin; Z79.01 Long term (current) use of anticoagulants; Z83.3 Family history of diabetes mellitus; Z82.49 Family history of ischemic heart disease and other diseases of the circulatory system
CPT/HCPCS: 36415; 71045; 71260; 74177; 80048; 80053; 82106; 82378; 82962; 83036; 83550; 83615; 83735; 83880; 84484; 84703; 85007; 85025; 85379; 85610; 85730; 86301; 86304; 86850; 86870; 86900; 86901; 86920; 86922; 93005; 93306; 94660; 96374; 96375; G0378; A9270-GY; J1650; J1815; J1940; J2405; J2916; J3475; J7040; P9016; Q9967

== ENCOUNTER 2020-07-26 21:26 | Observation (INO) | payer MEDICAID ==
--- NOTE | 2020-07-26 21:43 | Emergency Department Report ---
ED Chest Pain HPI - General Chief Complaint: Chest Pain Stated Complaint: CHEST PAIN/abd pain/constipation PUI?: No Time Seen by Provider: 07/26/20 21:38 Source: patient, EMS Mode of arrival: Stretcher Limitations: No Limitations - History of Present Illness Initial Comments: Patient is a 49-year-old female that presents emergency room with multiple complaints. Patient's first complaint is chest pain patient states her chest pain started at 540 tonight. Patient states her chest pain is in her left chest and is worsening. Patient states that the chest pain is worse with movement and exertion. Patient states that pain is better with rest and remaining still. Patient denies fever and chills. Patient denies cough. Patient complains of shortness of breath. Patient states her shortness of breath better with rest and worse with exertion. Patient denies nausea and vomiting. Patient states that her chest pain is a 10 out of 10 and is nonradiating. Patient second complaint is abdominal pain. Patient states she is having lower abdominal pain and constipation. Patient states that her symptoms are worsening. Patient states that her abdominal pain is a 6 out of 10. Patient states she has had a bowel movement for 6 days. Patient states that she he can feel a large amount of stool but she cannot evacuated the stool. Patient states that she has stage IV cervical cancer that has mets everywhere. Patient states she is on chemotherapy and radiation to shrink and decrease the pain. Patient states she has a new port in her right upper chest that was placed in June. Patient states already been accessed without any difficulties. Patient's third complaint is urinary frequency. Patient states she is urinating every 30 minutes. Patient denies pain with urination. Patient denies fever and chills. Patient denies recent travel. Patient denies recent international travel. Patient denies exposure to the novel coronavirus. Patient denies sick contacts. Patient denies fever and chills. Patient denies cough. Patient denies diarrhea. Patient denies coming in contact with anybody with symptoms of the novel coronavirus. MD Complaint: chest pain -: Sudden Onset: during rest Pain Location: left chest Pain Radiation: none Severity: severe Severity scale (0 -10): 10 Consistency: constant Improves With: rest Worsens With: movement re: dyspnea. denies: nausea, vomting, diaphoresis Other Symptoms: denies: cough, fever, syncope, rash, acid taste in mouth, leg swelling, palpitations, burping Treatments Prior to Arrival: none Aspirin use within the Past 7 Days: (1) Yes - Related Data On Oral Contraceptives: No Home Medications Medication Instructions Recorded Confirmed Last Taken Simvastatin (NF) [Zocor TAB] 40 mg PO QHS 06/02/13 05/12/20 05/12/20 10:33 Previous Rx's Medication Instructions Recorded Last Taken Type Benzonatate [Tessalon Perles] 100 mg PO Q8HR #30 capsule 06/21/19 06/23/19 Rx Empagliflozin [Jardiance] 10 mg PO DAILY #30 tablet 06/21/19 Unknown Rx Insulin Glargine [Lantus VIAL] 70 units SUB-Q BID #5 vial 06/21/19 05/12/20 10: 34 Rx Lispro Insulin [HumaLOG] 45 unit SUB-Q TIDAC #5 vial 06/21/19 05/12/20 10:34 Rx Pantoprazole [Protonix TAB] 40 mg PO QDAY #30 tablet 06/21/19 06/23/19 Rx Sennosides/Docusate [Senokot S] 2 tab PO Q12H PRN #30 tablet 06/21/19 05/12/20 10:33 Rx polyethylene glycoL 3350 [Miralax 17 gm PO QDAY PRN #30 powd.pack 06/21/19 Unknown Rx 3350] Albuterol Mdi (or & Nicu Only) 2 puff IH QID PRN #8.5 gram 06/26/19 Unknown Rx [ProAir HFA Inhaler] Aspirin [Aspirin BABY CHEW TAB] 81 mg PO QDAY #30 tab.chew 05/15/20 Unknown Rx Furosemide [Lasix TAB] 40 mg PO QDAY #30 tablet 05/15/20 Unknown Rx Metoprolol [Lopressor TAB] 50 mg PO BID #60 tablet 05/15/20 Unknown Rx dilTIAZem CD [Cardizem CD] 240 mg PO QDAY #30 capsule 05/15/20 Unknown Rx Allergies Allergy/AdvReac Type Severity Reaction Status Date / Time cephalexin monohydrate Allergy Nausea Verified 05/09/20 18:39 [From Keflex] ciprofloxacin Allergy Diarrhea Verified 05/09/20 18:39 lisinopril Allergy Unknown Verified 05/09/20 18:39 Penicillins Allergy Swelling Verified 05/09/20 18:39 metformin AdvReac Diarrhea Verified 05/09/20 18:39 Heart Score - HEART Score History: Moderately suspicious EKG: Non-specific Age: 45-65 Risk factors: > 3 risk factors or hx of atherosclerotic disease Troponin: < normal limit HEART Score: 5 ED Review of Systems ROS: Stated complaint: CHEST PAIN Other details as noted in HPI Constitutional: denies: chills, fever Eyes: denies: eye pain, eye discharge, vision change ENT: denies: ear pain, throat pain Respiratory: shortness of breath. denies: cough, wheezing Cardiovascular: as per HPI, chest pain. denies: palpitations Endocrine: no symptoms reported Gastrointestinal: as per HPI, abdominal pain, constipation. denies: nausea, diarrhea Genitourinary: as per HPI, frequency. denies: urgency, dysuria, discharge Musculoskeletal: denies: back pain, joint swelling, arthralgia Skin: denies: rash, lesions Neurological: denies: headache, weakness, paresthesias Psychiatric: denies: anxiety, depression Hematological/Lymphatic: denies: easy bleeding, easy bruising ED Past Medical Hx - Past Medical History Previous Medical History?: Yes Hx Hypertension: Yes Hx Heart Attack/AMI: Yes Hx Congestive Heart Failure: No Hx Diabetes: Yes Hx Psychiatric Treatment: Yes (anxiety) Hx Asthma: Yes Hx COPD: No Additional medical history: sleep apnea, high cholesterol,prolasped bladder,sciatia. A. fib with RVR in the past. was told had AK 10/2014, clean cath per pt. gallstones. neuropathy. prolapsed bladder. morbid obesity - Surgical History Past Surgical History?: Yes Additional Surgical History: tonsillectomy - Family History Family history: no significant - Social History Smoking Status: Never Smoker Substance Use Type: None - Medications Home Medications: Home Medications Medication Instructions Recorded Confirmed Last Taken Type Simvastatin (NF) [Zocor TAB] 40 mg PO QHS 06/02/13 05/12/20 05/12/20 10:33 History Benzonatate [Tessalon Perles] 100 mg PO Q8HR #30 capsule 06/21/19 05/12/20 06/23/19 Rx Empagliflozin [Jardiance] 10 mg PO DAILY #30 tablet 06/21/19 05/12/20 Unknown Rx Insulin Glargine [Lantus VIAL] 70 units SUB-Q BID #5 vial 06/21/19 05/12/20 05/12/20 10:34 Rx Lispro Insulin [HumaLOG] 45 unit SUB-Q TIDAC #5 vial 06/21/19 05/12/20 05/12/20 10:34 Rx Pantoprazole [Protonix TAB] 40 mg PO QDAY #30 tablet 06/21/19 05/12/20 06/23/19 Rx Sennosides/Docusate [Senokot S] 2 tab PO Q12H PRN #30 tablet 06/21/19 05/12/20 05/12/20 10:33 Rx polyethylene glycoL 3350 [Miralax 17 gm PO QDAY PRN #30 powd.pack 06/21/19 05/12/20 Unknown Rx 3350] Albuterol Mdi (or & Nicu Only) 2 puff IH QID PRN #8.5 gram 06/26/19 05/12/20 Unknown Rx [ProAir HFA Inhaler] Aspirin [Aspirin BABY CHEW TAB] 81 mg PO QDAY #30 tab.chew 05/15/20 Unknown Rx Furosemide [Lasix TAB] 40 mg PO QDAY #30 tablet 05/15/20 Unknown Rx Metoprolol [Lopressor TAB] 50 mg PO BID #60 tablet 05/15/20 Unknown Rx dilTIAZem CD [Cardizem CD] 240 mg PO QDAY #30 capsule 05/15/20 Unknown Rx ED Physical Exam - General Limitations: No Limitations General appearance: alert, in no apparent distress, obese - Head Head exam: Present: atraumatic, normocephalic - Eye Eye exam: Present: normal appearance - ENT ENT exam: Present: mucous membranes moist - Neck Neck exam: Present: normal inspection - Respiratory Respiratory exam: Present: normal lung sounds bilaterally, chest wall tenderness. Absent: respiratory distress, wheezes, rales - Cardiovascular Cardiovascular Exam: Present: regular rate, normal rhythm. Absent: systolic murmur, diastolic murmur, rubs, gallop - GI/Abdominal GI/Abdominal exam: Present: soft, tenderness (Bilateral lower quadrant tenderness to palpation.), normal bowel sounds - Rectal Rectal exam: Present: deferred - Extremities Exam Extremities exam: Present: normal inspection - Back Exam Back exam: Present: normal inspection - Neurological Exam Neurological exam: Present: alert, oriented X3 - Psychiatric Psychiatric exam: Present: normal affect, normal mood - Skin Skin exam: Present: warm, dry, intact, normal color. Absent: rash ED Course Vital Signs 07/26/20 07/26/20 07/26/20 21:29 21:31 22:00 Temperature 98.2 F Pulse Rate 86 88 82 Respiratory 16 20 20 Rate Blood Pressure 133/60 120/69 O2 Sat by Pulse 100 99 100 Oximetry 07/26/20 07/27/20 07/27/20 23:00 00:00 01:00 Temperature Pulse Rate 83 91 H 81 Respiratory 20 21 28 H Rate Blood Pressure 132/68 131/66 127/69 O2 Sat by Pulse 100 98 99 Oximetry 07/27/20 02:00 Temperature Pulse Rate 88 Respiratory 13 Rate Blood Pressure 135/73 O2 Sat by Pulse 96 Oximetry - Reevaluation(s) Reevaluation #1: Complaining of abdominal pain again. Patient was given another dose of Dilaudid. 07/27/20 03:01 Reevaluation #2: I discussed all results with patient. I discussed plan of care with patient. Patient agrees with plan of care and admission. Patient to be admitted to the hospitalist service. 07/27/20 03:55 - Consultations Consultation #1: Hospitalist consulted for admission. Hospitalist to admit patient. 07/27/20 03:55 LOGAN score - Logan Score Age > 65: (0) No Aspirin use within the Past 7 Days: (0) No 3 or more CAD Risk Factors: (1) Yes 2 or more Angina events in past 24 hrs: (1) Yes Known CAD with more than 50% Stenosis: (0) No Elevated Cardiac Markers: (0) No ST Deviation Greater than 0.5mm: (0) No LOGAN Score: 2 ED Medical Decision Making - Lab Data Result diagrams: 07/26/20 22:19 07/26/20 22:19 - EKG Data -: EKG Interpreted by Me EKG shows normal: axis, intervals, QRS complexes, ST-T waves Rate: normal - EKG Data Interpretation: other (A. fib) - Radiology Data Radiology results: report reviewed, image reviewed interpreted by me: XR chest 1V ap INDICATION / CLINICAL INFORMATION: Chest Pain. FINDINGS: SUPPORT DEVICES: Right chest wall port catheter tip terminates in the region of the cavoatrial junction. HEART /PULMONARY VASCULATURE: Cardiac enlargement with pulmonary vasculature congestion. LUNGS / PLEURA: No significant pulmonary or pleural abnormality. No pneumothorax. ADDITIONAL FINDINGS: No significant additional findings. IMPRESSION: Mild CHF/volume overload. CT ABDOMEN AND PELVIS WITH CONTRAST INDICATION / CLINICAL INFORMATION: Patient complains of abdominal pain with nausea and vomiting.. TECHNIQUE: Axial CT images were obtained through the abdomen and pelvis after IV contrast. All CT scans at this location are performed using CT dose reduction for ALARA by means of automated exposure control. COMPARISON: 05/10/2020 FINDINGS: LOWER CHEST: No significant abnormality LIVER: There is cirrhotic morphology of the liver. No focal lesion. GALLBLADDER/BILIARY TREE: Cholelithiasis. No CT evidence of cholecystitis. No biliary dilatation. PANCREAS: No significant abnormality SPLEEN: Splenomegaly ADRENALS: No significant abnormality KIDNEYS / URETER: No significant abnormality URINARY BLADDER: No significant abnormality REPRODUCTIVE ORGANS: There is diffuse enlargement and heterogeneity of the cervix, unchanged. Uterus/adnexa are unremarkable. STOMACH / SMALL BOWEL: Stomach and small bowel are normal in caliber. No evidence of bowel inflammation. COLON: The colon is unremarkable. LYMPH NODES: Worsening periaortic and bilateral iliac chain lymphadenopathy, with index right periaortic lymph node measuring 3.2 cm in short axis; previously measured 2.6 cm. VASCULATURE: No significant abnormality. OTHER: No free air, free fluid, or focal fluid collection is identified. SKELETAL SYSTEM: No acute osseous findings. IMPRESSION: 1. Worsening retroperitoneal lymphadenopathy, concerning for metastatic disease. 2. Stable enlargement and heterogeneity of the cervix. 3. Cirrhotic morphology of liver with findings of portal hypertension including splenomegaly. 4. Other stable chronic and incidental findings as above. - Medical Decision Making Patient is a 49-year-old female that presents emergency room with multiple complaints. Patient relates complete chest pain, shortness of breath, abdominal pain, constipation, urinary frequency. Patient's urine essentially unremarkable and no infection noted. Patient had labs done which were essentially markable for anemia. Patient's troponin negative. Patient had a chest x-ray which shows CHF changes. Patient had a CT scan which shows no acute finding severe metastatic disease. Patient's EKG shows A. fib. Patient's heart score is elevated. Patient admitted to the hospital service for further evaluation and treatment and rule out ACS. Patient given Dilaudid for chest pain and abdominal pain. Patient's pain improved with treatment. Patient also given aspirin in the ER. - Differential Diagnosis ACS, chest pain, CHF, SOB, abdominal pain, constipation, SBO, UTI Critical Care Time: Yes Critical care time in (mins) excluding proc time.: 35 Critical care attestation.: If time is entered above; I have spent that time in minutes in the direct care of this critically ill patient, excluding procedure time. Critical Care Time: 35 MINUTES ED Disposition Clinical Impression: Shortness of breath, History of atrial fibrillation Chest pain Qualifiers: Chest pain type: unspecified Qualified Code(s): R07.9 - Chest pain, unspecified Anemia Qualifiers: Anemia type: unspecified type Qualified Code(s): D64.9 - Anemia, unspecified Abdominal pain Qualifiers: Abdominal location: lower abdomen, unspecified Qualified Code(s): R10.30 - Lower abdominal pain, unspecified Constipation Qualifiers: Constipation type: unspecified constipation type Qualified Code(s): K59.00 - Constipation, unspecified Disposition: -09 OP ADMIT IP TO THIS HOSP Is pt being admited?: Yes Does the pt Need Aspirin: No Condition: Critical Instructions: Chest Pain (ED) Time of Disposition: 04:04
[2020-07-26] MEDS ORDERED: ASPIRIN 325 MG TAB PO ONE (21:44)
[2020-07-26] MEDS ORDERED: HYDROmorphone 1 MG/1 ML INJ IV ONE (21:47)
[2020-07-26] MEDS ORDERED: ONDANSETRON 4 MG/2 ML INJ IV ONE (21:47)
[2020-07-26 22:43] LABS: Basophils % (Auto) 0.5 % (0.0-1.8); Eosinophils % (Auto) 0.6 % (0.0-4.3); Hematocrit 28.3 % (30.3-42.9); Hemoglobin 9.4 gm/dl (10.1-14.3); Lymphocytes # (Auto) 0.5 K/mm3 (1.2-5.4); Lymphocytes % (Auto) 7.4 % (13.4-35.0); Mean Corpuscular HGB Conc 33 % (30-34); Mean Corpuscular Volume 73 fl (79-97); Monocytes # (Auto) 0.5 K/mm3 (0.0-0.8); Monocytes % (Auto) 8.7 % (0.0-7.3); Platelet Count 172 K/mm3 (140-440); Red Blood Count 3.87 M/mm3 (3.65-5.03); Red Cell Distribution Width 18.3 % (13.2-15.2)
--- NOTE | 2020-07-26 22:46 | XRay Report ---
XR chest 1V ap INDICATION / CLINICAL INFORMATION: Chest Pain. COMPARISON: 05/09/2020 FINDINGS: SUPPORT DEVICES: Right chest wall port catheter tip terminates in the region of the cavoatrial juncti on. HEART /PULMONARY VASCULATURE: Cardiac enlargement with pulmonary vasculature congestion. LUNGS / PLEURA: No significant pulmonary or pleural abnormality. No pneumothorax. ADDITIONAL FINDINGS: No significant additional findings. IMPRESSION: Mild CHF/volume overload. Signer Name: Bryan Ashraf MD Signed: 07/26/2020 10:42 PM Workstation Name: [id number]
[2020-07-26 22:48] LABS: Bilirubin,Urine NEG (Negative); Blood,Urine NEG (Negative); Color,Urine Yellow (Yellow); Mucus,Urine FEW /HPF; RBC,Urine < 1.0 /HPF (0.0-6.0)
[2020-07-26 23:10] LABS: Alanine Aminotransferase 15 units/L (7-56); Albumin 3.7 g/dL (3.9-5); BUN/Creatinine Ratio 26; Blood Urea Nitrogen 21 mg/dL (7-17); Calcium 8.6 mg/dL (8.4-10.2); Hemolysis Index 0
[2020-07-27] MEDS ORDERED: HYDROmorphone 1 MG/1 ML INJ ONE (03:26)
[2020-07-27] MEDS ORDERED: HYDROmorphone 1 MG/1 ML INJ IV ONE (03:26)
[2020-07-27] MEDS ORDERED: SODIUM CHLORIDE 0.9% 1000 ML 1,000 ML IV ONE (03:26)
[2020-07-27] MEDS ORDERED: SODIUM CHLORIDE 0.9% 1000 ML 1,000 ML ONE (03:26)
--- NOTE | 2020-07-27 03:36 | Cat Scan Report ---
CT ABDOMEN AND PELVIS WITH CONTRAST INDICATION / CLINICAL INFORMATION: Patient complains of abdominal pain with nausea and vomiting.. TECHNIQUE: Axial CT images were obtained through the abdomen and pelvis after IV contrast. All CT sc ans at this location are performed using CT dose reduction for ALARA by means of automated exposure c ontrol. COMPARISON: 05/10/2020 FINDINGS: LOWER CHEST: No significant abnormality LIVER: There is cirrhotic morphology of the liver. No focal lesion. GALLBLADDER/BILIARY TREE: Cholelithiasis. No CT evidence of cholecystitis. No biliary dilatation. PANCREAS: No significant abnormality SPLEEN: Splenomegaly ADRENALS: No significant abnormality KIDNEYS / URETER: No significant abnormality URINARY BLADDER: No significant abnormality REPRODUCTIVE ORGANS: There is diffuse enlargement and heterogeneity of the cervix, unchanged. Uterus/ adnexa are unremarkable. STOMACH / SMALL BOWEL: Stomach and small bowel are normal in caliber. No evidence of bowel inflammati on. COLON: The colon is unremarkable. LYMPH NODES: Worsening periaortic and bilateral iliac chain lymphadenopathy, with index right periaor tic lymph node measuring 3.2 cm in short axis; previously measured 2.6 cm. VASCULATURE: No significant abnormality. OTHER: No free air, free fluid, or focal fluid collection is identified. SKELETAL SYSTEM: No acute osseous findings. IMPRESSION: 1. Worsening retroperitoneal lymphadenopathy, concerning for metastatic disease. 2. Stable enlargement and heterogeneity of the cervix. 3. Cirrhotic morphology of liver with findings of portal hypertension including splenomegaly. 4. Other stable chronic and incidental findings as above. Signer Name: Bryan Ashraf MD Signed: 07/27/2020 3:32 AM Workstation Name: [id number]
[2020-07-27] MEDS ORDERED: ONDANSETRON 4 MG/2 ML INJ IV PRN (04:36)
[2020-07-27] MEDS ORDERED: MORPHINE 2 MG/1 ML INJ IV PRN (04:36)
[2020-07-27] MEDS ORDERED: HEPARIN 5,000 UNIT/1 ML VIAL SUB-Q ONE (04:37)
[2020-07-27] MEDS ORDERED: ACETAMINOPHEN 325 MG TAB PO PRN (04:43)
[2020-07-27] MEDS ORDERED: MAGNESIUM HYDROXIDE (MOM) ORAL LIQD UDC PO ONE (04:45)
--- NOTE | 2020-07-27 04:55 | History and Physical Report ---
History of Present Illness Date of examination: 07/27/20 Date of admission: 07/27/20 Chief complaint: Chief complaint is chest pain, other complaint include constipation History of present illness: History of presenting illness, patient is a 49-year-old female who has been having pressure-like chest pain that started yesterday evening and located in the precordial area, pain is nonradiating and is associated with shortness of breath, there is no diaphoresis and no nausea or vomiting. Pain is relieved with pain medication, also patient complained about constipation with abdominal pain, there is no history of fever or chills and no history of cough. Past History Past Medical History: cancer Past Surgical History: No surgical history Social history: no significant social history Family history: no significant family history Medications and Allergies Allergies Allergy/AdvReac Type Severity Reaction Status Date / Time cephalexin monohydrate Allergy Nausea Verified 05/09/20 18:39 [From Keflex] ciprofloxacin Allergy Diarrhea Verified 05/09/20 18:39 lisinopril Allergy Unknown Verified 05/09/20 18:39 Penicillins Allergy Swelling Verified 05/09/20 18:39 metformin AdvReac Diarrhea Verified 05/09/20 18:39 Home Medications Medication Instructions Recorded Confirmed Last Taken Type Simvastatin (NF) [Zocor TAB] 40 mg PO QHS 06/02/13 05/12/20 05/12/20 10:33 History Benzonatate [Tessalon Perles] 100 mg PO Q8HR #30 capsule 06/21/19 05/12/20 06/23/19 Rx Empagliflozin [Jardiance] 10 mg PO DAILY #30 tablet 06/21/19 05/12/20 Unknown Rx Insulin Glargine [Lantus VIAL] 70 units SUB-Q BID #5 vial 06/21/19 05/12/20 05/12/20 10:34 Rx Lispro Insulin [HumaLOG] 45 unit SUB-Q TIDAC #5 vial 06/21/19 05/12/20 05/12/20 10:34 Rx Pantoprazole [Protonix TAB] 40 mg PO QDAY #30 tablet 06/21/19 05/12/20 06/23/19 Rx Sennosides/Docusate [Senokot S] 2 tab PO Q12H PRN #30 tablet 06/21/19 05/12/20 05/12/20 10:33 Rx polyethylene glycoL 3350 [Miralax 17 gm PO QDAY PRN #30 powd.pack 06/21/19 05/12/20 Unknown Rx 3350] Albuterol Mdi (or & Nicu Only) 2 puff IH QID PRN #8.5 gram 06/26/19 05/12/20 Unknown Rx [ProAir HFA Inhaler] Aspirin [Aspirin BABY CHEW TAB] 81 mg PO QDAY #30 tab.chew 05/15/20 Unknown Rx Furosemide [Lasix TAB] 40 mg PO QDAY #30 tablet 05/15/20 Unknown Rx Metoprolol [Lopressor TAB] 50 mg PO BID #60 tablet 05/15/20 Unknown Rx dilTIAZem CD [Cardizem CD] 240 mg PO QDAY #30 capsule 05/15/20 Unknown Rx Active Meds: Active Medications Acetaminophen (Acetaminophen 325 Mg Tab) 650 mg PO Q4H PRN PRN Reason: Headache Aspirin (Aspirin 325 Mg Tab) 325 mg PO QDAY KALI Bisacodyl (Bisacodyl 5 Mg Tab) 10 mg PO QDAY PRN PRN Reason: Constipation Magnesium Hydroxide (Magnesium Hydroxide (Mom) Oral Liqd Udc) 30 ml PO ONCE ONE Stop: 07/27/20 04:46 Morphine Sulfate (Morphine 2 Mg/1 Ml Inj) 2 mg IV Q4H PRN PRN Reason: Pain, Moderate (4-6) Nitroglycerin (Nitroglycerin 2% Oint 1 Gm) 0.5 inch TP QIDNTG [facility]; Protocol Ondansetron HCl (Ondansetron 4 Mg/2 Ml Inj) 4 mg IV Q8H PRN PRN Reason: Nausea And Vomiting Review of Systems Constitutional: no fever, no chills, no fatigue, no weakness Eyes: bilateral: other (NO BILATERAL EYE SYMTOM) Ears, nose, mouth and throat: no ear pain Breasts: deferred Cardiovascular: chest pain, shortness of breath, no orthopnea, no palpitations, no rapid/irregular heart beat, no syncope, no lightheadedness Respiratory: shortness of breath, no cough, no cough with sputum, no excessive sputum, no hemoptysis, no dyspnea on exertion, no congestion, no wheezing, no pleurisy Gastrointestinal: abdominal pain, constipation, no nausea, no vomiting, no di arrhea, no change in bowel habits, no hematemesis, no coffee ground emesis, no melena, no hematochezia, no loss of appetite, no heartburn Rectal: no pain Musculoskeletal: no neck stiffness, no neck pain, no low back pain Integumentary: no rash, no pruritis, no redness, no sores, no wounds, no boils, no growths Neurological: no paralysis, no weakness, no parathesias, no numbness, no tingling, no seizures, no syncope, no tremors, no vertigo, no headaches, no migraines, no convulsions Psychiatric: no anxiety, no depression Endocrine: no polydipsia, no polyuria, no nocturia Exam - Constitutional Vitals: Temp Pulse Resp BP Pulse Ox 98.2 F 88 13 135/73 96 07/26/20 21:29 07/27/20 02:00 07/27/20 02:00 07/27/20 02:00 07/27/20 02:00 General appearance: Present: mild distress - EENT Eyes: Present: PERRL, EOM intact ENT: hearing intact, clear oral mucosa, dentition normal - Neck Neck: Present: supple, normal ROM - Respiratory Respiratory effort: normal - Cardiovascular Rhythm: regular Heart Sounds: Present: S1 & S2. Absent: gallop, systolic murmur, diastolic murmur, click - Extremities Extremities: no ischemia, No edema Peripheral Pulses: within normal limits - Abdominal General gastrointestinal: Present: soft, non-tender, non-distended. Absent: tender, distended, rigid, hepatomegaly, splenomegaly Female genitourinary: Present: deferred - Rectal Rectal Exam: deferred - Integumentary Integumentary: Present: clear, warm, dry. Absent: erythema, jaundice - Musculoskeletal Musculoskeletal: strength equal bilaterally - Psychiatric Psychiatric: appropriate mood/affect HEART Score - HEART Score EKG: Non-specific Age: 45-65 Risk factors: 1-2 risk factors Troponin: Troponin T < 0.010 ng/mL (0.00-0.029) 07/27/20 01:55 Troponin: < normal limit - Critical Actions Critical Actions: 0-3 pts:0.9-1.7%risk of adverse cardiac event.Candidate for discharge Results - Labs CBC & Chem 7: 07/26/20 22:19 07/26/20 22:19 Labs: Laboratory Last Values WBC 6.3 K/mm3 (4.5-11.0) 07/26/20 22: RBC 3.87 M/mm3 (3.65-5.03) 07/26/20 22:19 Hgb 9.4 gm/dl (10.1-14.3) L 07/26/20 22:19 Hct 28.3 % (30.3-42.9) L 07/26/20 22:19 MCV 73 fl (79-97) L 07/26/20 22:19 MCH 24 pg (28-32) L 07/26/20 22:19 MCHC 33 % (30-34) 07/26/20 22:19 RDW 18.3 % (13.2-15.2) H 07/26/20 22:19 Plt Count 172 K/mm3 (140-440) 07/26/20 22:19 Lymph % (Auto) 7.4 % (13.4-35.0) L 07/26/20 22:19 [place] % (Auto) 8.7 % (0.0-7.3) H 07/26/20 22:19 Eos % (Auto) 0.6 % (0.0-4.3) 07/26/20 22: Baso % (Auto) 0.5 % (0.0-1.8) 07/26/20 22:19 Lymph # (Auto) 0.5 K/mm3 (1.2-5.4) L 07/26/20 22:19 [place] # (Auto) 0.5 K/mm3 (0.0-0.8) 07/26/20 22:19 Eos # (Auto) 0.0 K/mm3 (0.0-0.4) 07/26/20 22:19 Baso # (Auto) 0.0 K/mm3 (0.0-0.1) 07/26/20 22:19 Seg Neutrophils % 82.8 % (40.0-70.0) H 07/26/20 22:19 Seg Neutrophils # 5.2 K/mm3 (1.8-7.7) 07/26/20 22:19 Sodium 132 mmol/L (137-145) L 07/26/20 22:19 Potassium 3.8 mmol/L (3.6-5.0) 07/26/20 22:19 Chloride 95.2 mmol/L (98-107) L 07/26/20 22:19 Carbon Dioxide 28 mmol/L (22-30) 07/26/20 22:19 Anion Gap 13 mmol/L 07/26/20 22:19 BUN 21 mg/dL (7-17) H 07/26/20 22:19 Creatinine 0.8 mg/dL (0.6-1.2) 07/26/20 22:19 Estimated GFR > 60 ml/min 07/26/20 22:19 BUN/Creatinine Ratio 26 % 07/26/20 22:19 Glucose 139 mg/dL (65-100) H 07/26/20 22:19 Calcium 8.6 mg/dL (8.4-10.2) 07/26/20 22:19 Total Bilirubin 0.80 mg/dL (0.1-1.2) 07/26/20 22:19 AST 29 units/L (5-40) 07/26/20 22:19 ALT 15 units/L (7-56) 07/26/20 22:19 Alkaline Phosphatase 186 units/L (35-129) H 07/26/20 22:19 Troponin T < 0.010 ng/mL (0.00-0.029) 07/27/20 01:55 Total Protein 8.3 g/dL (6.3-8.2) H 07/26/20 22:19 Albumin 3.7 g/dL (3.9-5) L 07/26/20 22:19 Albumin/Globulin Ratio 0.8 % 07/26/20 22:19 HCG, Qual Negative (Negative) 07/26/20 22:19 Urine Color Yellow (Yellow) 07/26/20 22:30 Urine Turbidity Clear (Clear) 07/26/20 22:30 Urine pH 6.0 (5.0-7.0) 07/26/20 22:30 Ur Specific [place] 1.012 (1.003-1.030) 07/26/20 22: Urine Protein 30 mg/dl mg/dL (Negative) 07/26/20 22:30 Urine Glucose (UA) 50 mg/dL (Negative) 07/26/20 22:30 Urine Ketones Neg mg/dL (Negative) 07/26/20 22:30 Urine Blood Neg (Negative) 07/26/20 22:30 Urine Nitrite Neg (Negative) 07/26/20 22:30 Urine Bilirubin Neg (Negative) 07/26/20 22:30 Urine Urobilinogen 4.0 mg/dL (<2.0) 07/26/20 22:30 Ur Leukocyte Esterase Neg (Negative) 07/26/20 22:30 Urine WBC (Auto) 1.0 /HPF (0.0-6.0) 07/26/20 22:30 Urine RBC (Auto) < 1.0 /HPF (0.0-6.0) 07/26/20 22:30 U Epithel Cells (Auto) < 1.0 /HPF (0-13.0) 07/26/20 22:30 Urine Mucus Few /HPF 07/26/20 22:30 Assessment and Plan - Patient Problems (1) Chest pain Onset Date: 12/12/15 Current Visit: Yes Status: Acute Qualifiers: Chest pain type: unspecified Qualified Code(s): R07.9 - Chest pain, unspecified Plan to address problem: 1. SERIAL CARDIAC ENZYMES 2. NPO 3. L[place]ISCAN STRESS TEST 4. NITRO PASTE 5. I.V MORPHINE FOR PAIN 6. I.V ZOFRAN FOR NAUSEA AND VOMITING 7. PO ASPIRIN 8. PO TYLENOL FOR HEADACHE 9. HEPARIN SUB CUT FOR DVT 10 OXYGEN BY NASAL CANNULA (2) Constipation Current Visit: Yes Status: Acute Qualifiers: Constipation type: unspecified constipation type Plan to address problem: 1. MILK OF MAGNESIA PO X1 DOSE 2. DULCOLAX SUPPOSITORY PRN CONSTIPAXION
[2020-07-27] MEDS: NITROGLYCERIN 2% OINT 1 GM TP SCH ×2 (06:17→10:36)
[2020-07-27] MEDS ORDERED: REGADENOSON 0.4 MG/5 ML INJ IV ONE ×2 (09:23→09:29)
[2020-07-27] MEDS ORDERED: ASPIRIN 325 MG TAB PO SCH (10:00)
[2020-07-27 10:39] VITALS: BP 155/86
[2020-07-27] MEDS ORDERED: MAGNESIUM HYDROXIDE (MOM) ORAL LIQD UDC PO PRN (11:00)
--- NOTE | 2020-07-27 15:13 | Treadmill Report ---
THALLIUM STRESS TEST REPORT LEFT VENTRICLE: Left ventricular chamber size is within normal spread. Perfusion study demonstrates homogeneous uptake of the tracer in all segments on the stress images. The rest images are suboptimal with evidence of breast attenuation artifact. Gated analysis demonstrates normal left ventricular systolic function, ejection fraction 68%. CONCLUSION: Normal stress myocardial perfusion study. JOB# [id number] CA/NTS
[2020-07-27 15:41] LABS: Creatine Kinase MB < 1.0 ng/mL (0.0-4.0)
--- NOTE | 2020-07-27 15:55 | Discharge Summary ---
Providers - Providers Date of Admission: 07/27/20 04:07 Date of discharge: 07/27/20 Attending physician: ANAM KAHN Primary care physician: [employer] Hospitalization Condition: Stable Pertinent studies: Chest x-ray; mild CHF Stress test; negative for ischemia, ejection fraction [address] abdomen and pelvis; worsening lymphadenopathy, thickened cervix Metastatic changes Disposition: DC- TO HOME OR SELFCARE Time spent for discharge: 34 min Exam - Constitutional Vitals: Temp Pulse Resp BP Pulse Ox 98.2 F 108 H 18 155/86 98 07/26/20 21:29 07/27/20 10:36 07/27/20 11:12 07/27/20 10:36 07/27/20 11:12 Plan Activity: advance as tolerated Diet: low salt, other (Cardiac diet) Additional Instructions: Advised high-fiber diet, take stool softeners as needed. If you have worsening symptoms contact MD or go to emergency room Follow up with: PRIMARY MD CHIOMA [Primary Care Provider] - 3-5 Days JESSICA BHAKTA MD [Staff Physician] - 14 Days Prescriptions: bisacodyL [Dulcolax suppos] 10 mg HI QDAY PRN #30 supp.rect PRN Reason: Constipation Magnesium Hydroxide [Milk of Magnesia] 30 ml PO QDAY PRN 30 Days #1 bottle PRN Reason: Constipation Pantoprazole [Protonix TAB] 40 mg PO QDAY #30 tablet
== END 2020-07-27 17:59 | disposition home or self-care (01) ==
LOC: ED 21:26 → 4A 07-27 04:07
PROVIDERS: ADMIT Internal Medicine; ATTEND Internal Medicine
DX: R07.89 Other chest pain (principal); K59.00 Constipation, unspecified; J45.909 Unspecified asthma, uncomplicated; E11.9 Type 2 diabetes mellitus without complications; F41.9 Anxiety disorder, unspecified; I48.91 Unspecified atrial fibrillation; D64.9 Anemia, unspecified; Z79.4 Long term (current) use of insulin; Z79.82 Long term (current) use of aspirin; Z90.49 Acquired absence of other specified parts of digestive tract
CPT/HCPCS: 36415; 71045; 74177; 78452; 80053; 81001; 82550; 82553; 84484; 84703; 85025; 93005; 93017; 96361; 96372; 96374; 96375; 96376; 99291; A9502; G0378; J1170; J1642; J1644; J2405; J2785; J7030; Q9967

== ENCOUNTER 2020-08-25 12:08 | Emergency (ER) | payer MEDICAID ==
[2020-08-25] MEDS ORDERED: METOCLOPRAMIDE 10 MG/2 ML INJ IV ONE (13:00)
[2020-08-25] MEDS ORDERED: HYDROmorphone 1 MG/1 ML INJ IV ONE ×3 (13:00→16:06)
[2020-08-25] MEDS ORDERED: LACTATED RINGERS 1,000 ML IV ONE (13:00)
--- NOTE | 2020-08-25 13:01 | Emergency Department Report ---
<ANGELA HATHAWAY - Last Filed: 08/25/20 16:05> ED General Adult HPI - General Chief complaint: Dyspnea/Respdistress Stated complaint: ABD PAIN PUI?: No Time Seen by Provider: 08/25/20 12:24 Source: patient, EMS ( EMS documentation not available at time of chart dictation ), RN notes reviewed, old records reviewed Mode of arrival: Stretcher Limitations: No Limitations - History of Present Illness Initial comments: The patient was evaluated in the emergency department for symptoms described in the history of present illness. He/she was evaluated in the context of the global COVID-19 pandemic, which necessitated consideration that the patient might be at risk for infection with the virus that causes COVID-19. Institutional protocols and algorithms that pertain to the evaluation of patients at risk for COVID-19 are in a state of rapid change based on information released by regulatory bodies including the CDC and federal and state organizations. These policies and algorithms were followed during the patient's care in the emergency department. Please note that these policies, procedures and recommendations changed on a rapid basis. Hematology oncology: Dr. Devi Recent objective diagnostic testing at this hospital Cardiac nuclear stress test, August 06, 2020, negative for ischemic heart findings. Cardiac catheterization 2014, negative for coronary artery disease. CT scan abdomen pelvis, July 2020, May 2020: Retroperitoneal adenopathy, suspicious for metastatic disease, cirrhotic morphology of liver, heterogeneity of cervix, chronic stable incidental findings, likely portal hypertension. The patient is a 49-year-old female. She presents to the ER today with a com plaint of headache, chest pain, and abdominal pain. Her symptoms have been present for 2 days. The headache is frontal, and bitemporal. The headache is present for 2 days. The headache is not described as sudden or thunderclap in nature. There is no loss of vision. There is no sore throat. No focal extremity weakness/numbness. Her chest wall pain and chest pain have been present for 2 days. They are constant. The pain increases with palpation and deep inspiration. No vomiting. No diaphoresis. No new/different exertional shortness of breath. The patient's abdominal pain is has been present for 2 days. She describes a bandlike sensation of discomfort in her lower abdominal region. She denies hematemesis and bright red blood per rectum. She endorses some urinary discomfort. Patient is currently on chemotherapy and is status post radiation therapy. She believes that she completed a few rounds of carboplatin, and recently started Taxol within the past week or so, but indicates she was having trouble tolerating it "because of an allergic reaction." She reports that she has discussed her pain issues with her oncologist, who as per the patient, does not appear to be prescribing narcotic substances, and appears to be pursuing complementary methods. Patient was recently admitted to this hospital for chest pain and abdominal pain. She was also recently seen by our cardiology service, [facility], who recommended conservative cardiac management for permanent A. fib, and heart failure with preserved ejection fraction. -: Gradual, days(s) Location: head, chest, abdomen Quality: aching Consistency: constant Improves with: rest Worsens with: movement - Related Data Home Medications Medication Instructions Recorded Confirmed Last Taken Simvastatin (NF) [Zocor TAB] 40 mg PO QHS 06/02/13 05/12/20 05/12/20 10:33 Previous Rx's Medication Instructions Recorded Last Taken Type Benzonatate [Tessalon Perles] 100 mg PO Q8HR #30 capsule 06/21/19 06/23/19 Rx Lispro Insulin [HumaLOG] 45 unit SUB-Q TIDAC #5 vial 06/21/19 05/12/20 10:34 Rx Sennosides/Docusate [Senokot S] 2 tab PO Q12H PRN #30 tablet 06/21/19 05/12/20 10:33 Rx polyethylene glycoL 3350 [Miralax 17 gm PO QDAY PRN #30 powd.pack 06/21/19 Unknown Rx 3350] Albuterol Mdi (or & Nicu Only) 2 puff IH QID PRN #8.5 gram 06/26/19 Unknown Rx [ProAir HFA Inhaler] Aspirin [Aspirin BABY CHEW TAB] 81 mg PO QDAY #30 tab.chew 05/15/20 Unknown Rx Furosemide [Lasix TAB] 40 mg PO QDAY #30 tablet 05/15/20 Unknown Rx Metoprolol [Lopressor TAB] 50 mg PO BID #60 tablet 05/15/20 Unknown Rx dilTIAZem CD [Cardizem CD] 240 mg PO QDAY #30 capsule 05/15/20 Unknown Rx Magnesium Hydroxide [Milk of 30 ml PO QDAY PRN 30 Days #1 bottle 07/27/20 Unknown Rx Magnesia] Pantoprazole [Protonix TAB] 40 mg PO QDAY #30 tablet 07/27/20 Unknown Rx bisacodyL [Dulcolax suppos] 10 mg RI QDAY PRN #30 supp.rect 07/27/20 Unknown Rx Acetaminophen [Non-Aspirin Extra 500 mg PO Q6HR PRN #30 tablet 08/25/20 Unknown Rx Strength] Metoclopramide [Reglan] 10 mg PO QID PRN #30 tablet 08/25/20 Unknown Rx Nitrofurantoin [place]/M-Cryst 100 mg PO Q12HR #14 capsule 08/25/20 Unknown Rx [Macrobid CAP] Allergies Allergy/AdvReac Type Severity Reaction Status Date / Time cephalexin monohydrate Allergy Nausea Verified 08/25/20 12:26 [From Keflex] ciprofloxacin Allergy Diarrhea Verified 08/25/20 12:26 lisinopril Allergy Unknown Verified 08/25/20 12:26 Penicillins Allergy Swelling Verified 08/25/20 12:26 metformin AdvReac Diarrhea Verified 08/25/20 12:26 ED Review of Systems Constitutional: malaise, weakness, other (Patient denies loss of taste and smell). denies: fever ENT: denies: dental pain Respiratory: shortness of breath (Chronic shortness of breath) Cardiovascular: chest pain Gastrointestinal: abdominal pain Genitourinary: dysuria Musculoskeletal: myalgia Neurological: weakness Hematological/Lymphatic: denies: easy bleeding ED Past Medical Hx - Past Medical History Hx Hypertension: Yes Hx Heart Attack/AMI: Yes Hx Congestive Heart Failure: No Hx Diabetes: Yes Hx Psychiatric Treatment: Yes (anxiety) Hx Asthma: Yes Hx COPD: No Additional medical history: sleep apnea, high cholesterol,prolasped bladder,sciatia. A. fib with RVR in the past. was told had [place] 10/2014, clean cath per pt. gallstones. neuropathy. prolapsed bladder. morbid obesity - Surgical History Additional Surgical History: tonsillectomy - Social History Smoking Status: Never Smoker - Medications Home Medications: Home Medications Medication Instructions Recorded Confirmed Last Taken Type Simvastatin (NF) [Zocor TAB] 40 mg PO QHS 06/02/13 05/12/20 05/12/20 10:33 History Benzonatate [Tessalon Perles] 100 mg PO Q8HR #30 capsule 06/21/19 05/12/20 06/23/19 Rx Lispro Insulin [HumaLOG] 45 unit SUB-Q TIDAC #5 vial 06/21/19 05/12/20 05/12/20 10:34 Rx Sennosides/Docusate [Senokot S] 2 tab PO Q12H PRN #30 tablet 06/21/19 05/12/20 05/12/20 10:33 Rx polyethylene glycoL 3350 [Miralax 17 gm PO QDAY PRN #30 powd.pack 06/21/19 05/12/20 Unknown Rx 3350] Albuterol Mdi (or & Nicu Only) 2 puff IH QID PRN #8.5 gram 06/26/19 05/12/20 Unknown Rx [ProAir HFA Inhaler] Aspirin [Aspirin BABY CHEW TAB] 81 mg PO QDAY #30 tab.chew 05/15/20 Unknown Rx Furosemide [Lasix TAB] 40 mg PO QDAY #30 tablet 05/15/20 Unknown Rx Metoprolol [Lopressor TAB] 50 mg PO BID #60 tablet 05/15/20 Unknown Rx dilTIAZem CD [Cardizem CD] 240 mg PO QDAY #30 capsule 05/15/20 Unknown Rx Magnesium Hydroxide [Milk of 30 ml PO QDAY PRN 30 Days #1 bottle 07/27/20 Unknown Rx Magnesia] Pantoprazole [Protonix TAB] 40 mg PO QDAY #30 tablet 07/27/20 Unknown Rx bisacodyL [Dulcolax suppos] 10 mg RI QDAY PRN #30 supp.rect 07/27/20 Unknown Rx Acetaminophen [Non-Aspirin Extra 500 mg PO Q6HR PRN #30 tablet 08/25/20 Unknown Rx Strength] Metoclopramide [Reglan] 10 mg PO QID PRN #30 tablet 08/25/20 Unknown Rx Nitrofurantoin [place]/M-Cryst 100 mg PO Q12HR #14 capsule 08/25/20 Unknown Rx [Macrobid CAP] ED Physical Exam - General Limitations: No Limitations General appearance: alert, obese - Head Head exam: Present: atraumatic, normocephalic - Eye Eye exam: Present: normal appearance, EOMI. Absent: nystagmus - ENT ENT exam: Present: normal exam, normal orophraynx, mucous membranes moist, normal external ear exam - Neck Neck exam: Present: normal inspection, full ROM. Absent: tenderness, meningismus - Respiratory Respiratory exam: Present: normal lung sounds bilaterally, chest wall tenderness (There is reproducible chest wall tenderness. Chaperoned by nurse Joyce Watters). Absent: respiratory distress, wheezes, rales, rhonchi, stridor, decreased breath sounds - Cardiovascular Cardiovascular Exam: Present: regular rate, irregular rhythm, normal heart sounds. Absent: normal rhythm, bradycardia, tachycardia, systolic murmur, diastolic murmur, rubs, gallop - GI/Abdominal GI/Abdominal exam: Present: soft, tenderness, other (There is mild diffuse lower abdominal tenderness, without rebound, guarding or peritoneal signs). Absent: distended, guarding, rebound, rigid, pulsatile mass - Extremities Exam Extremities exam: Present: normal inspection, full ROM, other (2+ pulses noted in the bilateral upper and lower extremities. There is no palpable cord. negative Homans sign. Muscular compartments are soft. The pelvis is stable.). Absent: pedal edema, calf tenderness - Back Exam Back exam: Present: normal inspection. Absent: tenderness, CVA tenderness (R), CVA tenderness (L), paraspinal tenderness, vertebral tenderness - Neurological Exam Neurological exam: Present: alert, other (No facial droop. Tongue midline. Extraocular movements intact bilaterally. Facial sensation intact to light touch in V1, V2, V3 distribution bilaterally. 5 and a 5 strength in 4 extremities. Sensation intact to light touch in 4 extremities.). Absent: motor sensory deficit - Psychiatric Psychiatric exam: Present: anxious - Skin Skin exam: Present: warm, dry, intact, normal color. Absent: rash ED Course - Reevaluation(s) Reevaluation #1: 08/25/20 14:54 Differential diagnosis, including but not limited to: Pneumonia, costochondritis, pulmonary embolism, cancer pain, obstruction, colitis, diverticulitis, urinary tract infection, migraine headache, tension headache, cluster headache Assessment and plan: 49-year-old female with multiple medical issues, recently admitted to this hospital for cardiac risk stratification, had an unremarkable cardiac stress test, and a negative cardiac catheterization in 2015, EKG unchanged from prior, troponin negative x1. Symptoms present for about 48 hours. Acute myocardial infarction is excluded, as symptoms present for greater than 8 hours, as per the [employer] clinical policy. Patient recently had a nuclear stress test at this hospital, her cardiac risk factor profile is reviewed and appreciated, however, after her recent evaluation, our local cardiology practices have not recommended additional cardiac risk ratification. We will treat her chest wall pain. Negative D-dimer appreciated, however, given obesity, recent hospitalization, active malignancy, would not consider the patient to be low pretest probability for pulmonary embolism, and will therefore not use D-dimer alone to risk stratify patient for pulmonary embolism. CT scan of the chest will be obtained to rule out pulmonary embolism. In terms of the patient's headache, she has a GCS of 15, with a nonfocal motor and neurologic examination, unremarkable ocular examination, visual acuity intact to finger counting, color perception, reading at a close distance, without direct or consensual photophobia and no meningeal signs. We will treat her headache supportively and symptomatically, and obtain CT scan of the brain to exclude metastatic disease/intracranial mass lesions. 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 In terms of the patient's abdominal pain, we will repeat CT scan of the abdomen pelvis to assess for interval change. However, I suspect that this is an exacerbation of the patient's chronic pain, likely related to cancer burden. She endorses pyuria secondary to vaginal irritation, secondary to recent chemotherapy. Urinalysis reviewed and appreciated, no bacteriuria noted, I suspect pyuria is secondary to gynecologic irritation, secondary to her history of radiation therapy, with not start antibiotics at this time based off of urinalysis. Reevaluation #2: Patient was given a 1 month supply of oxycodone by Dr. Reyes earlier on this month, therefore, if no acute findings noted on CT scan, she will need to follow-up with her primary care doctor or pain specialist for additional na rcotic therapy, if she is having continued pain. 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 08/08/2020 2 07/31/2020 ALPRAZOLAM 2 MG TABLET 90.0 30 KI NEI [id number] HEART (5124) 0 Comm Ins [place] 08/01/2020 2 07/31/2020 OXYCODONE HCL 10 MG TABLET 90.0 30 KI NEI [id number] HEART (5124) 0 45.0 MME [place] 07/10/2020 2 07/10/2020 OXYCODONE HCL 10 MG TABLET 90.0 30 KI NEI [id number] HEART (5124) 0 45.0 [place] 07/10/2020 2 07/10/2020 ALPRAZOLAM 2 MG TABLET 90.0 30 KI NEI [id number] HEART (5124) 0 [place] 07/02/2020 2 07/02/2020 OXYCODONE HCL 5 MG TABLET 90.0 15 KI NEI [id number] HEART (5124) 0 45.0 [place] 06/14/2020 2 05/30/2020 HYDROCODONE-ACETAMIN 5-325 MG 10.0 3 JE HIN [id number] HEART (5124) 0 16.67 MME [place] 12/29/2019 1 12/28/2019 OXYCODONE-ACETAMINOPHEN 5-325 15.0 4 KE WAS [id number] HEART (5124) 0 28.13 MME Comm Ins [place] 08/25/20 15:34 Care will be transferred to the oncoming ER physician to follow-up on CT scan of brain, chest, abdomen, pelvis. If negative for acute/emergent findings, would discharge with outpatient follow- up. 08/25/20 16:06 patient resting comfortably. She has requested additional pain medication. Additional pain medication ordered. ED Medical Decision Making - Lab Data Result diagrams: 08/25/20 13:20 08/25/20 13:20 Vital Signs 08/25/20 08/25/20 08/25/20 12:15 12:50 12:55 Temperature 98.0 F Pulse Rate 100 H 88 Respiratory 18 26 H Rate Blood Pressure 148/73 Blood Pressure [Left] O2 Sat by Pulse 99 Oximetry 08/25/20 08/25/20 13:02 14:13 Temperature Pulse Rate 96 H 100 H Respiratory 22 18 Rate Blood Pressure Blood Pressure 135/72 182/91 [Left] O2 Sat by Pulse 96 100 Oximetry Lab Results 08/25/20 08/25/20 08/25/20 Range/Units 13:20 13:20 13:20 WBC 3.7 L (4.5-11.0) K/mm3 RBC 3.71 (3.65-5.03) M/mm3 Hgb 9.9 L (10.1-14.3) gm/dl Hct 30.3 (30.3-42.9) % MCV 82 (79-97) fl MCH 27 L (28-32) pg MCHC 33 (30-34) % RDW 27.0 H (13.2-15.2) % Plt Count 105 L (140-440) K/mm3 Lymph % (Auto) 9.1 L (13.4-35.0) % [place] % (Auto) 12.0 H (0.0-7.3) % Eos % (Auto) 1.3 (0.0-4.3) % Baso % (Auto) 0.6 (0.0-1.8) % Lymph # (Auto) 0.3 L (1.2-5.4) K/mm3 [place] # (Auto) 0.4 (0.0-0.8) K/mm3 Eos # (Auto) 0.0 (0.0-0.4) K/mm3 Baso # (Auto) 0.0 (0.0-0.1) K/mm3 Seg Neutrophils % 77.0 H (40.0-70.0) % Seg Neutrophils # 2.9 (1.8-7.7) K/mm3 PT 14.8 (12.2-14.9) Sec. INR 1.16 H (0.87-1.13) D-Dimer 211.74 (0-234) ng/mlDDU Sodium 131 L (137-145) mmol/L Potassium 4.2 (3.6-5.0) mmol/L Chloride 96.1 L (98-107) mmol/L Carbon Dioxide 26 (22-30) mmol/L Anion Gap 13 mmol/L BUN 20 H (7-17) mg/dL Creatinine 0.8 (0.6-1.2) mg/dL Estimated GFR > 60 ml/min BUN/Creatinine Ratio 25 % Glucose 152 H (65-100) mg/dL Calcium 9.0 (8.4-10.2) mg/dL Magnesium 1.40 L (1.7-2.3) mg/dL Total Bilirubin 0.60 (0.1-1.2) mg/dL AST 24 (5-40) units/L ALT 19 (7-56) units/L Alkaline Phosphatase 182 H (35-129) units/L Total Creatine Kinase 16 L (30-135) units/L Troponin T < 0.010 (0.00-0.029) ng/mL Total Protein 7.6 (6.3-8.2) g/dL Albumin 3.7 L (3.9-5) g/dL Albumin/Globulin Ratio 0.9 % Urine Color (Yellow) Urine Turbidity (Clear) Urine pH (5.0-7.0) Ur Specific [place] (1.003-1.030) Urine Protein (Negative) mg/dL Urine Glucose (UA) (Negative) mg/dL Urine Ketones (Negative) mg/dL Urine Blood (Negative) Urine Nitrite (Negative) Urine Bilirubin (Negative) Urine Urobilinogen (<2.0) mg/dL Ur Leukocyte Esterase (Negative) Urine WBC (Auto) (0.0-6.0) /HPF Urine RBC (Auto) (0.0-6.0) /HPF U Epithel Cells (Auto) (0-13.0) /HPF Urine Mucus /HPF // Range/Units 13:20 WBC (4.5-11.0) K/mm3 RBC (3.65-5.03) M/mm3 Hgb (10.1-14.3) gm/dl Hct (30.3-42.9) % MCV (79-97) fl MCH (28-32) pg MCHC (30-34) % RDW (13.2-15.2) % Plt Count (140-440) K/mm3 Lymph % (Auto) (13.4-35.0) % [place] % (Auto) (0.0-7.3) % Eos % (Auto) (0.0-4.3) % Baso % (Auto) (0.0-1.8) % Lymph # (Auto) (1.2-5.4) K/mm3 [place] # (Auto) (0.0-0.8) K/mm3 Eos # (Auto) (0.0-0.4) K/mm3 Baso # (Auto) (0.0-0.1) K/mm3 Seg Neutrophils % (40.0-70.0) % Seg Neutrophils # (1.8-7.7) K/mm3 PT (12.2-14.9) Sec. INR (0.87-1.13) D-Dimer (0-234) ng/mlDDU Sodium (137-145) mmol/L Potassium (3.6-5.0) mmol/L Chloride (98-107) mmol/L Carbon Dioxide (22-30) mmol/L Anion Gap mmol/L BUN (7-17) mg/dL Creatinine (0.6-1.2) mg/dL Estimated GFR ml/min BUN/Creatinine Ratio % Glucose (65-100) mg/dL Calcium (8.4-10.2) mg/dL Magnesium (1.7-2.3) mg/dL Total Bilirubin (0.1-1.2) mg/dL AST (5-40) units/L ALT (7-56) units/L Alkaline Phosphatase (35-129) units/L Total Creatine Kinase (30-135) units/L Troponin T (0.00-0.029) ng/mL Total Protein (6.3-8.2) g/dL Albumin (3.9-5) g/dL Albumin/Globulin Ratio % Urine Color Yellow (Yellow) Urine Turbidity Slightly-cloudy (Clear) Urine pH 7.0 (5.0-7.0) Ur Specific [place] 1.017 (1.003-1.030) Urine Protein <15 mg/dl (Negative) mg/dL Urine Glucose (UA) Neg (Negative) mg/dL Urine Ketones Neg (Negative) mg/dL Urine Blood Neg (Negative) Urine Nitrite Neg (Negative) Urine Bilirubin Neg (Negative) Urine Urobilinogen 4.0 (<2.0) mg/dL Ur Leukocyte Esterase Mod (Negative) Urine WBC (Auto) 57.0 H (0.0-6.0) /HPF Urine RBC (Auto) 3.0 (0.0-6.0) /HPF U Epithel Cells (Auto) 9.0 (0-13.0) /HPF Urine Mucus Few /HPF - EKG Data -: EKG Interpreted by Ar - EKG Data 08/25/20 14:53 EKG today's interpreted at 13: 10 EKG today appears to be unchanged from prior EKG from July 2020 A. fib, 90 bpm, left axis deviation, left anterior fascicular block, motion artifact, poor R wave progression. Abnormal EKG. Not a STEMI. - Radiology Data Radiology results: pending, report reviewed, image reviewed ED Disposition Clinical Impression: Atrial fibrillation, Chest wall pain, Lower abdominal pain, Obesity, Pyuria, sterile, Headache, UTI (urinary tract infection) Disposition: DC- TO HOME OR SELFCARE Condition: Good Instructions: Nonspecific Chest Pain, Adult, Urinary Tract Infection, Adult Additional Instructions: Please continue current outpatient medications. Do not take metformin medication for the next 2 days, if patient takes this medication. Minimize/avoid consumption of Motrin, ibuprofen, Naprosyn, Aleve, heavy and spicy foods. Take the prescribed medications as needed for headache and/or nausea. Patient may take the acetaminophen as needed for headache and/or abdominal pain. Patient recently prescribed 90 tablets of oxycodone by Dr. [place] Reyes. This is a 1 month supply of oxycodone. If patient still having persistent pain, and her pain is not controlled by her oxycodone, she will need to follow-up with her primary care doctor, oncologist, or the aforementioned prescribing physician to reassess/reevaluate outpatient prescriptions. Please note that long-term consumption utilization of oxycodone and narcotics may cause addiction, habit formation, and may paradoxically increase sensations of pain. Patient may benefit from complementary therapies, such as massage, acupuncture, as well as nonnarcotic therapies. She should investigate this with her primary care doctor, oncologist, or pain specialist. Please follow-up with your primary care doctor or nuclear instructor within the next 3 to 5 days for complaint of chest pain. Patient was also found to have evidence of pyuria, without bacteria, likely coming from recent radiation therapy to the cervix, recommend sitz bath's, supportive garments, and making sure that the area is clean, and dry. Please return to the emergency room right away with new pain, worsened pain, migration of pain, projectile vomiting, change in mental status, confusion, inability to tolerate liquid feeds, new, worsened or different symptoms not present on the initial emergency room evaluation. Prescriptions: Nitrofurantoin [place]/M-Cryst [Macrobid CAP] 100 mg PO Q12HR #14 capsule Acetaminophen [Non-Aspirin Extra Strength] 500 mg PO Q6HR PRN #30 tablet PRN Reason: Pain , Severe (7-10) Metoclopramide [Reglan] 10 mg PO QID PRN #30 tablet PRN Reason: Nausea Referrals: JESSICA BHAKTA MD [Staff Physician] - 3-5 Days JORGE DEVI MD [Staff Physician] - 3-5 Days <GLO ELY - Last Filed: 08/25/20 17:45> ED Review of Systems ROS: Stated complaint: ABD PAIN Other details as noted in HPI ED Course Vital Signs 08/25/20 08/25/20 08/25/20 12:15 12:50 12:55 Temperature 98.0 F Pulse Rate 100 H 88 Respiratory 18 26 H Rate Blood Pressure 148/73 Blood Pressure [Left] O2 Sat by Pulse 99 Oximetry 08/25/20 08/25/20 08/25/20 13:02 14:13 16:05 Temperature Pulse Rate 96 H 100 H 106 H Respiratory 22 18 Rate Blood Pressure 158/88 Blood Pressure 135/72 182/91 [Left] O2 Sat by Pulse 96 100 Oximetry 08/25/20 16:51 Temperature Pulse Rate 97 H Respiratory 18 Rate Blood Pressure Blood Pressure 156/89 [Left] O2 Sat by Pulse 100 Oximetry ED Medical Decision Making - Lab Data Result diagrams: 08/25/20 13:20 08/25/20 13:20 - Radiology Data NONENHANCED CT SCAN OF THE HEAD: INDICATION / CLINICAL INFORMATION: 49 years Female; headache cervical cancer. TECHNIQUE: Routine CT head without contrast. All CT scans at this location are performed using CT dose reduction for ALARA by means of automated exposure control. COMPARISON: CT scan of the head from 10/31/2014 and 02/11/2018 FINDINGS: BRAIN / INTRACRANIAL CONTENTS: No acute hemorrhage, mass effect, midline shift, hydrocephalus, or acute, large territorial infarct. No chronic infarct or focal atrophy. Mild cortical involution. No significant white matter abnormality. CRANIOCERVICAL JUNCTION: No significant abnormality. ORBITS: No significant abnormality of visualized orbits. SINUSES / MASTOIDS: No significant abnormality of the visualized paranasal sinuses or mastoid air cells. ADDITIONAL FINDINGS: None. IMPRESSION: No focal parenchymal lesion Signer Name: Khris Chao MD Signed: 08/25/2020 4:18 PM Workstation Name: [id number] CT ABDOMEN AND PELVIS WITH CONTRAST INDICATION / CLINICAL INFORMATION: Acute abdominal pain, cervical cancer. TECHNIQUE: Axial CT images were obtained through the abdomen and pelvis following the administration of intravenous contrast. All CT scans at this location are performed using CT dose reduction for ALARA by means of automated exposure control. COMPARISON: CT abdomen/pelvis dated 07/27/2020. FINDINGS: LIVER: Cirrhotic morphology of the liver. GALLBLADDER: Uncomplicated cholelithiasis. PANCREAS: No significant abnormality. SPLEEN: Splenomegaly. ADRENALS: No significant abnormality. KIDNEYS / URETERS: No significant abnormality. URINARY BLADDER: Decompressed with circumferential wall thickening and associated inflammatory change. REPRODUCTIVE ORGANS: Diffuse cervical enlargement and heterogeneity has improved somewhat. STOMACH / SMALL BOWEL: No significant abnormality. COLON: No significant abnormality. APPENDIX: No significant abnormality. PERITONEUM: No free fluid. No free air. No fluid collection. LYMPH NODES: Redemonstration of periaortic and bilateral iliac chain lymphadenopathy which has mildly improved. An index right iliac chain node now measures 1.4 cm in short axis, previously 2.4 cm. AORTA / ARTERIES: No significant abnormality. IVC / VEINS: No significant abnormality. SKELETAL SYSTEM: No significant abnormality. No destructive osseous lesion. ADDITIONAL FINDINGS: None. IMPRESSION: 1. Urinary bladder is decompressed but demonstrates circumferential wall thickening and mild inflammatory change. Findings can be seen in the setting of cystitis, and correlation with urinalysis is recommended. 2. Improved periaortic, pericaval, and bilateral iliac chain lymphadenopathy compared to the CT from 07/27/2020. 3. Improvement in enlargement and heterogeneity of the cervix. 4. Hepatic cirrhosis and features of portal hypertension including splenomegaly. CTA CHEST WITH CONTRAST INDICATION / CLINICAL INFORMATION: Acute chest pain. TECHNIQUE: Axial CT images were obtained through the chest after injection of IV contrast. 3 plane MIP and/or 3D reconstructions were produced. All CT scans at this location are performed using CT dose reduction for ALARA by means of automated exposure control. COMPARISON: CT chest dated 05/12/2020. FINDINGS: PULMONARY ARTERIES: No pulmonary emboli. THORACIC AORTA: No significant abnormality. HEART: Cardiomegaly. CORONARY ARTERIES: No significant calcification. MEDIASTINUM / MICHELE: No significant abnormality. PLEURA: No pleural effusion. No pneumothorax. LUNGS: No acute air space or interstitial disease. ADDITIONAL FINDINGS: There are enlarged left axillary lymph nodes, largest measuring 1.6 cm in short axis (series 2, image 28). SKELETAL STRUCTURES: Chronic, healing fracture of the lateral left fourth rib. No lytic or sclerotic osseous lesion. IMPRESSION: 1. No CT evidence for pulmonary embolism. 2. Left axillary lymphadenopathy timbo metastatic disease. 3. Chronic, healing lateral left fourth rib fracture. - Medical Decision Making Patient signed out to me by Dr. Hathaway initial evaluating physician to follow- up on imaging results of CT head, CTA chest, CT abdomen pelvis to rule out acute pathology. Imaging results reviewed and there are no acute findings that require hospitalization. UA results noted as well as CT abdomen pelvis results for possible cystitis therefore antibiotics for UTI will be added. First dose of Macrobid provided in ED. Patient has known metastatic cancer and is on the current chronic pain management. Patient be discharged with prescriptions provided by Dr. Santa Tucker to continue her pain medications as prescribed by her specialist Critical care attestation.: If time is entered above; I have spent that time in minutes in the direct care of this critically ill patient, excluding procedure time. ED Disposition Is pt being admited?: No Time of Disposition: 17:26
[2020-08-25 14:08] LABS: Bilirubin,Urine NEG (Negative); Blood,Urine NEG (Negative); Color,Urine Yellow (Yellow); Mucus,Urine FEW /HPF; Protein,Urine <15 mg/dL mg/dL (Negative)
[2020-08-25 14:15] LABS: INR 1.16 (0.87-1.13)
[2020-08-25 14:28] LABS: Alanine Aminotransferase 19 units/L (7-56); Albumin 3.7 g/dL (3.9-5); BUN/Creatinine Ratio 25; Blood Urea Nitrogen 20 mg/dL (7-17); Hemolysis Index 11
[2020-08-25 14:43] LABS: Basophils % (Auto) 0.6 % (0.0-1.8); Eosinophils % (Auto) 1.3 % (0.0-4.3); Hematocrit 30.3 % (30.3-42.9); Hemoglobin 9.9 gm/dl (10.1-14.3); Lymphocytes # (Auto) 0.3 K/mm3 (1.2-5.4); Lymphocytes % (Auto) 9.1 % (13.4-35.0); Mean Corpuscular HGB Conc 33 % (30-34); Mean Corpuscular Volume 82 fl (79-97); Monocytes # (Auto) 0.4 K/mm3 (0.0-0.8); Platelet Count 105 K/mm3 (140-440); Red Blood Count 3.71 M/mm3 (3.65-5.03)
[2020-08-25] MEDS ORDERED: ALBUTEROL 8.5 GM MDI INHALATION IH PRN (15:05)
[2020-08-25] MEDS ORDERED: SENNOSIDES/DOCUSATE SODIUM 8.6/50 MG TAB PO PRN (15:05)
[2020-08-25] MEDS ORDERED: PANTOPRAZOLE 40 MG TAB PO STA (15:06)
[2020-08-25] MEDS ORDERED: METOPROLOL TARTRATE 50 MG TAB PO STA (15:07)
[2020-08-25] MEDS ORDERED: FUROSEMIDE 40 MG TAB PO STA (15:07)
[2020-08-25] MEDS ORDERED: dilTIAZem CD 240 MG CAP PO STA (15:13)
--- NOTE | 2020-08-25 16:23 | Cat Scan Report ---
NONENHANCED CT SCAN OF THE HEAD: INDICATION / CLINICAL INFORMATION: 49 years Female; headache cervical cancer. TECHNIQUE: Routine CT head without contrast. All CT scans at this location are performed using CT dos e reduction for ALARA by means of automated exposure control. COMPARISON: CT scan of the head from 10/31/2014 and 02/11/2018 FINDINGS: BRAIN / INTRACRANIAL CONTENTS: No acute hemorrhage, mass effect, midline shift, hydrocephalus, or acu te, large territorial infarct. No chronic infarct or focal atrophy. Mild cortical involution. No sign ificant white matter abnormality. CRANIOCERVICAL JUNCTION: No significant abnormality. ORBITS: No significant abnormality of visualized orbits. SINUSES / MASTOIDS: No significant abnormality of the visualized paranasal sinuses or mastoid air sergey ls. ADDITIONAL FINDINGS: None. IMPRESSION: No focal parenchymal lesion Signer Name: Khris Chao MD Signed: 08/25/2020 4:18 PM Workstation Name: [id number]
--- NOTE | 2020-08-25 16:30 | Cat Scan Report ---
CTA CHEST WITH CONTRAST INDICATION / CLINICAL INFORMATION: Acute chest pain. TECHNIQUE: Axial CT images were obtained through the chest after injection of IV contrast. 3 plane MIP and/or 3D reconstructions were produced. All CT scans at this location are performed using CT dose reduction f or ALARA by means of automated exposure control. COMPARISON: CT chest dated 05/12/2020. FINDINGS: PULMONARY ARTERIES: No pulmonary emboli. THORACIC AORTA: No significant abnormality. HEART: Cardiomegaly. CORONARY ARTERIES: No significant calcification. MEDIASTINUM / MICHELE: No significant abnormality. PLEURA: No pleural effusion. No pneumothorax. LUNGS: No acute air space or interstitial disease. ADDITIONAL FINDINGS: There are enlarged left axillary lymph nodes, largest measuring 1.6 cm in short axis (series 2, image 28). SKELETAL STRUCTURES: Chronic, healing fracture of the lateral left fourth rib. No lytic or sclerotic osseous lesion. IMPRESSION: 1. No CT evidence for pulmonary embolism. 2. Left axillary lymphadenopathy timbo metastatic disease. 3. Chronic, healing lateral left fourth rib fracture. Signer Name: Gino Gonzales MD Signed: 08/25/2020 4:25 PM Workstation Name: [id number]
--- NOTE | 2020-08-25 16:40 | Cat Scan Report ---
CT ABDOMEN AND PELVIS WITH CONTRAST INDICATION / CLINICAL INFORMATION: Acute abdominal pain, cervical cancer. TECHNIQUE: Axial CT images were obtained through the abdomen and pelvis following the administration of intraven ous contrast. All CT scans at this location are performed using CT dose reduction for ALARA by means of automated exposure control. COMPARISON: CT abdomen/pelvis dated 07/27/2020. FINDINGS: LIVER: Cirrhotic morphology of the liver. GALLBLADDER: Uncomplicated cholelithiasis. PANCREAS: No significant abnormality. SPLEEN: Splenomegaly. ADRENALS: No significant abnormality. KIDNEYS / URETERS: No significant abnormality. URINARY BLADDER: Decompressed with circumferential wall thickening and associated inflammatory change . REPRODUCTIVE ORGANS: Diffuse cervical enlargement and heterogeneity has improved somewhat. STOMACH / SMALL BOWEL: No significant abnormality. COLON: No significant abnormality. APPENDIX: No significant abnormality. PERITONEUM: No free fluid. No free air. No fluid collection. LYMPH NODES: Redemonstration of periaortic and bilateral iliac chain lymphadenopathy which has mildly improved. An index right iliac chain node now measures 1.4 cm in short axis, previously 2.4 cm. AORTA / ARTERIES: No significant abnormality. IVC / VEINS: No significant abnormality. SKELETAL SYSTEM: No significant abnormality. No destructive osseous lesion. ADDITIONAL FINDINGS: None. IMPRESSION: 1. Urinary bladder is decompressed but demonstrates circumferential wall thickening and mild inflamma tory change. Findings can be seen in the setting of cystitis, and correlation with urinalysis is mingo mmended. 2. Improved periaortic, pericaval, and bilateral iliac chain lymphadenopathy compared to the CT from 07/27/2020. 3. Improvement in enlargement and heterogeneity of the cervix. 4. Hepatic cirrhosis and features of portal hypertension including splenomegaly. Signer Name: Gino Gonzales MD Signed: 08/25/2020 4:36 PM Workstation Name: [id number]
[2020-08-25] MEDS ORDERED: NITROFURANTOIN MONOHYD/M-CRYST 100 MG CAP PO ONE (17:24)
[2020-08-25 18:02] VITALS: BP 161/94
[2020-08-25] MEDS ORDERED: PRAVASTATIN 80 MG TAB PO SCH (22:00)
[2020-08-25] MEDS ORDERED: NON-FORMULARY EACH (Simvastatin (Nf) 40 MG Tablet) PO SCH (22:00)
--- NOTE | 2020-08-27 11:09 | Electrocardiograph Report ---
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
--- NOTE | 2020-08-27 11:09 | Electrocardiograph Report ---
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
== END 2020-08-25 18:01 | disposition home or self-care (01) ==
LOC: ED 12:08
DX: I48.91 Unspecified atrial fibrillation (principal); N39.0 Urinary tract infection, site not specified; E66.9 Obesity, unspecified; I10 Essential (primary) hypertension; I25.2 Old myocardial infarction; F41.9 Anxiety disorder, unspecified; E11.9 Type 2 diabetes mellitus without complications; Z79.899 Other long term (current) drug therapy
CPT/HCPCS: 36415; 70450; 71275; 74177; 80053; 81001; 82550; 83735; 84484; 85025; 85379; 85610; 87086; 93005; 96361; 96374; 96375; 96376; 99284; J1170; J2765; J7120; Q9967

== ENCOUNTER 2020-09-12 21:19 | Emergency (ER) | payer MEDICAID | END 2020-09-12 23:02 | disposition left against medical advice (07) | LOC: ED 21:19 | DX: R07.9 Chest pain, unspecified (principal); Z53.21 Procedure and treatment not carried out due to patient leaving prior to being seen by health care provider ==

== ENCOUNTER 2021-01-10 11:46 | Emergency (ER) | payer MEDICAID ==
[2021-01-10 12:18] VITALS: BP 125/51
[2021-01-10] MEDS ORDERED: ASPIRIN 325 MG TAB PO ONE (12:18)
--- NOTE | 2021-01-10 12:55 | XRay Report ---
CHEST 2 VIEWS INDICATION / CLINICAL INFORMATION: Chest pain. COMPARISON: One view of the chest dated 07/26/2020 FINDINGS: SUPPORT DEVICES: Unchanged right internal jugular vein Port-A-Cath. HEART / MEDIASTINUM: No significant abnormality. LUNGS / PLEURA: No significant pulmonary abnormality. No significant pleural effusion. No pneumothora x. ADDITIONAL FINDINGS: No significant additional findings. IMPRESSION: 1. No acute abnormality of the chest. Signer Name: Ke Salazar MD Signed: 01/10/2021 12:51 PM Workstation Name: [id number]
--- NOTE | 2021-01-11 09:20 | Electrocardiograph Report ---
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
--- NOTE | 2021-01-31 11:20 | Emergency Department Report ---
Blank Doc - Documentation Documentation: I did not participate in the care of this patient. I did not evaluate this pa tient or interact with her.
== END 2021-01-10 20:32 | disposition left against medical advice (07) ==
LOC: ED 11:46
DX: R53.1 Weakness (principal); Z53.21 Procedure and treatment not carried out due to patient leaving prior to being seen by health care provider
CPT/HCPCS: 71046; 93005